=== PATIENT | male | born 1965 | race Caucasian/White ===

== ENCOUNTER 2020-11-13 09:15 | Outpatient (REF) | payer MEDICARE, MEDICAID, SELFPAY ==
[2020-11-13 11:03] LABS: MANUAL DIFF FLAG NO
[2020-11-13 11:28] LABS: Basophils Absolute Auto 0.1 X10*3/uL (0.0-0.2); Basophils Percent Auto 0.9 % (0-2); Eosinophils Absolute Auto 0.6 X10*3/uL (0.0-0.4); Eosinophils Percent Auto 6.6 % (0-4); Hematocrit 52.1 % (42-52); Hemoglobin 17.2 g/dl (14.0-18.0); Imm Gran Abs Auto 0.04 X10*3/uL (0.00-0.03); Imm Gran Pct Auto 0.5 % (0.0-0.4); Lymphocytes Absolute Auto 2.4 X10*3/uL (1.2-4.9); Lymphocytes Percent Auto 28.1 % (20-40); Mean Corpuscular Hemoglobin 30.7 pg (27.0-33.0); Mean Corpuscular Volume 92.9 fL (80-98); Mean Platelet Volume 10.4 fL (9.4-12.4); Monocytes Absolute Auto 0.9 X10*3/uL (0.1-1.2); Monocytes Percent Auto 9.9 % (2-11); Neutrophils Absolute Auto 4.6 X10*3/uL (2.0-8.3); Platelet Count 194 X10*3/uL (160-400); Red Blood Count 5.61 X10*6/uL (4.60-5.80); Red Cell Distribution Width 12.3 % (11.0-16.0); White Blood Count 8.6 X10*3/uL (4.8-10.8)
[2020-11-13 12:32] LABS: Anion Gap 17 (12-20); Blood Urea Nitrogen 13 mg/dL (9-16); Calcium 9.4 mg/dL (8.4-10.2); Carbon Dioxide 27 mmol/L (22-29); Chloride 101 mmol/L (96-108); Cholesterol 260 mg/dL; Estimated Glomerular Filt Rate > 60; Glucose Fasting 90 mg/dL (60-99); HDL Cholesterol 65 mg/dL; LDL Cholesterol Calculated 174 mg/dl; Potassium 4.2 mmol/l (3.3-5.1); Sodium 141 mmol/L (135-145); Triglycerides 106 mg/dL
== END 2020-11-13 09:16 | disposition home or self-care (01) ==
LOC: HO.HMGCLDS 09:15
PROVIDERS: PCP Internal Medicine; Visit Provider Internal Medicine
DX: E78.9 Disorder of lipoprotein metabolism, unspecified (principal); R79.89 Other specified abnormal findings of blood chemistry; K21.9 Gastro-esophageal reflux disease without esophagitis
CPT/HCPCS: 36415; 80048; 80061; 85025

== ENCOUNTER 2021-09-07 07:00 | Outpatient (REF) | payer MEDICARE, MEDICAID, SELFPAY ==
[2021-09-07 11:48] LABS: Alanine Aminotransferase 135 U/L (0-40); Albumin Level 4.3 g/dL (3.5-5.0); Alkaline Phosphatase 71 U/L (39-117); Anion Gap 15 (12-20); Aspartate Amino Transferase 108 U/L (5-37); Bilirubin Total 1.7 mg/dL (0.0-1.0); Blood Urea Nitrogen 18 mg/dL (9-16); Calcium 9.2 mg/dL (8.4-10.2); Carbon Dioxide 22 mmol/L (22-29); Chloride 99 mmol/L (96-108); Cholesterol 196 mg/dL; Estimated Glomerular Filt Rate > 60; Ethanol < 10 mg/dL; Glucose Fasting 81 mg/dL (60-99); HDL Cholesterol 49 mg/dL; LDL Cholesterol Calculated 125 mg/dl; Potassium 3.4 mmol/L (3.3-5.1); Sodium 133 mmol/L (135-145); Total Protein 7.4 g/dL (6.5-8.0); Triglycerides 110 mg/dL
[2021-09-07 11:55] LABS: Gamma Glutamyl Transpeptidase 232 U/L (11-51)
== END 2021-09-07 07:01 | disposition home or self-care (01) ==
LOC: HO.HMGCLDS 07:00
PROVIDERS: PCP Internal Medicine; Visit Provider Internal Medicine
DX: E78.9 Disorder of lipoprotein metabolism, unspecified (principal); F10.20 Alcohol dependence, uncomplicated; F33.9 Major depressive disorder, recurrent, unspecified; G47.9 Sleep disorder, unspecified; K21.9 Gastro-esophageal reflux disease without esophagitis; R79.89 Other specified abnormal findings of blood chemistry
CPT/HCPCS: 36415; 80053; 80061; 82077; 82977

== ENCOUNTER 2021-10-04 11:24 | Outpatient (REF) | payer MEDICARE, MEDICAID, SELFPAY ==
[2021-10-04 12:35] LABS: MANUAL DIFF FLAG NO
[2021-10-04 12:53] LABS: Basophils Absolute Auto 0.1 X10*3/uL (0.0-0.2); Basophils Percent Auto 0.9 % (0-2); Eosinophils Absolute Auto 0.3 X10*3/uL (0.0-0.4); Eosinophils Percent Auto 3.9 % (0-4); Hematocrit 45.9 % (42.0-52.0); Hemoglobin 15.8 g/dl (14.0-18.0); Imm Gran Abs Auto 0.02 X10*3/uL (0.00-0.03); Imm Gran Pct Auto 0.3 % (0.0-0.4); Lymphocytes Absolute Auto 1.8 X10*3/uL (1.2-4.9); Lymphocytes Percent Auto 24.7 % (20-40); Mean Corpuscular HGB Conc 34.4 g/dl (31.0-36.0); Mean Corpuscular Hemoglobin 31.1 pg (27.0-33.0); Mean Corpuscular Volume 90.4 fL (80.0-98.0); Mean Platelet Volume 10.5 fL (9.4-12.4); Monocytes Absolute Auto 1.1 X10*3/uL (0.1-1.2); Monocytes Percent Auto 14.2 % (2-11); Neutrophils Absolute Auto 4.1 x10*3/uL (2.0-8.3); Platelet Count 216 X10*3/uL (160-400); Red Blood Count 5.08 X10*6/uL (4.60-5.80); Red Cell Distribution Width 12.2 % (11.0-16.0); White Blood Count 7.4 X10*3/uL (4.8-10.8)
[2021-10-04 13:17] LABS: Alanine Aminotransferase 80 U/L (0-40); Albumin Level 4.3 g/dL (3.5-5.0); Alkaline Phosphatase 76 U/L (39-117); Anion Gap 12 (12-20); Aspartate Amino Transferase 45 U/L (5-37); Bilirubin Total 1.3 mg/dL (0.0-1.0); Blood Urea Nitrogen 5 mg/dL (9-16); Calcium 9.9 mg/dL (8.4-10.2); Carbon Dioxide 28 mmol/L (22-29); Chloride 98 mmol/L (96-108); Estimated Glomerular Filt Rate > 60; Gamma Glutamyl Transpeptidase 92 U/L (11-51); Glucose Random 93 mg/dL (60-115); Potassium 4.1 mmol/L (3.3-5.1); Sodium 134 mmol/L (135-145); Total Protein 7.3 g/dL (6.5-8.0)
[2021-10-04 14:18] LABS: Ferritin 526 ng/mL (20-250)
[2021-10-07 03:49] LABS: HBc Num1 0.13 S/CO (0.00-0.79); HBsAGNum1 0.35 S/CO (0.00-0.99); Hepatitis B Core Antibody Nonreactive (Nonreactive); Hepatitis B Surface Antigen Negative (Negative); ~Hepatitis B Surface Antibody NONREACTIVE (Nonreactive)
[2021-10-07 03:57] LABS: ~HepC Num1 0.11 S/CO (0.00-0.79); ~Hepatitis C Antibody Nonreactive (Nonreactive)
[2021-10-07 15:12] LABS: Transglutaminase Ab IgG <1.0 U/mL; Transglutaminase IgA <1.0 U/mL
[2021-10-08 12:06] LABS: Immunoglobulin G 1082 mg/dL (600-1640)
[2021-10-09 04:03] LABS: Hepatitis A Antibody IgM 0.33 Index (0-0.79); ~Hepatitis A Antibody IgM Nonreactive (Nonreactive)
== END 2021-10-04 11:25 | disposition home or self-care (01) ==
LOC: HO.LAB 11:24
PROVIDERS: PCP Internal Medicine; Referring Provider Internal Medicine; Visit Provider Internal Medicine Gastroenterology
DX: R10.33 Periumbilical pain (principal); F10.20 Alcohol dependence, uncomplicated; G89.29 Other chronic pain; K75.81 Nonalcoholic steatohepatitis (NASH); K52.839 Microscopic colitis, unspecified; E78.9 Disorder of lipoprotein metabolism, unspecified; R79.89 Other specified abnormal findings of blood chemistry
CPT/HCPCS: 36415; 80053; 82728; 82784; 82977; 83516; 85025; 86704; 86706; 86709; 86803; 87340; 99202

== ENCOUNTER 2022-03-07 13:07 | Outpatient (REF) | payer MEDICARE, MEDICAID, SELFPAY ==
[2022-03-07 14:22] LABS: Anion Gap 14 (12-20); Blood Urea Nitrogen 12 mg/dL (9-16); Calcium 9.7 mg/dL (8.4-10.2); Carbon Dioxide 27 mmol/L (22-29); Chloride 99 mmol/L (96-108); Estimated Glomerular Filt Rate > 60; Glucose Random 94 mg/dL (60-115); Potassium 3.8 mmol/L (3.3-5.1); Sodium 136 mmol/L (135-145)
[2022-03-07 17:09] LABS: Alanine Aminotransferase 38 U/L (0-40); Albumin Level 4.3 g/dL (3.5-5.0); Alkaline Phosphatase 63 U/L (39-117); Aspartate Amino Transferase 48 U/L (5-37); Bilirubin Direct 0.3 mg/dL (0.0-0.5); Bilirubin Total 0.8 mg/dL (0.0-1.0); Total Protein 7.5 g/dL (6.5-8.0)
== END 2022-03-07 13:08 | disposition home or self-care (01) ==
LOC: HO.HMGCLDS 13:07
PROVIDERS: Visit Provider Internal Medicine
DX: F10.20 Alcohol dependence, uncomplicated (principal); K21.9 Gastro-esophageal reflux disease without esophagitis; R79.89 Other specified abnormal findings of blood chemistry
CPT/HCPCS: 36415; 80048; 80076

== ENCOUNTER 2023-02-13 09:36 | Outpatient (REF) | payer OTHER, MEDICAID, SELFPAY ==
[2023-02-13 11:39] LABS: MANUAL DIFF FLAG NO
[2023-02-13 12:02] LABS: Basophils Absolute Auto 0.1 X10*3/uL (0.0-0.2); Basophils Percent Auto 0.8 % (0-2); Eosinophils Absolute Auto 0.7 X10*3/uL (0.0-0.4); Hematocrit 48.3 % (42.0-52.0); Imm Gran Abs Auto 0.01 X10*3/uL (0.00-0.03); Imm Gran Pct Auto 0.1 % (0.0-0.4); Lymphocytes Absolute Auto 2.1 X10*3/uL (1.2-4.9); Lymphocytes Percent Auto 28.3 % (20-40); Mean Corpuscular HGB Conc 33.1 g/dl (31.0-36.0); Mean Corpuscular Hemoglobin 30.4 pg (27.0-33.0); Mean Corpuscular Volume 91.7 fL (80.0-98.0); Mean Platelet Volume 10.2 fL (9.4-12.4); Monocytes Absolute Auto 0.8 X10*3/uL (0.1-1.2); Monocytes Percent Auto 10.6 % (2-11); Neutrophils Absolute Auto 3.7 x10*3/uL (2.0-8.3); Neutrophils Percent Auto 50.2 % (45-73); Platelet Count 174 X10*3/uL (160-400); Red Blood Count 5.27 X10*6/uL (4.60-5.80); Red Cell Distribution Width 12.9 % (11.0-16.0); White Blood Count 7.3 X10*3/uL (4.8-10.8)
[2023-02-13 12:30] LABS: Alanine Aminotransferase 21 U/L (0-40); Albumin Level 4.2 g/dL (3.5-5.0); Alkaline Phosphatase 63 U/L (39-117); Anion Gap 11 (12-20); Aspartate Amino Transferase 29 U/L (5-37); Blood Urea Nitrogen 12 mg/dL (9-16); Calcium 9.3 mg/dL (8.4-10.2); Carbon Dioxide 26 mmol/L (22-29); Chloride 104 mmol/L (96-108); Cholesterol 230 mg/dL; Estimated Glomerular Filt Rate > 60; Glucose Fasting 96 mg/dL (60-99); HDL Cholesterol 62 mg/dL; LDL Cholesterol Calculated 150 mg/dl; Potassium 4.2 mmol/L (3.3-5.1); Sodium 137 mmol/L (135-145); Total Protein 6.9 g/dL (6.5-8.0); Triglycerides 91 mg/dL
[2023-02-13 12:39] LABS: TSH reflex Free T4 2.31 uIU/mL (0.32-4.0); Vitamin B12 299 pg/mL (200-900)
[2023-02-19 12:39] LABS: Vitamin D 25-OH, D2 <4 ng/mL; Vitamin D 25-OH, D3 11 ng/mL; Vitamin D 25-OH, Total 11 ng/mL (30-100)
== END 2023-02-13 09:37 | disposition home or self-care (01) ==
LOC: HO.HMGCLDS 09:36
PROVIDERS: PCP Internal Medicine; Visit Provider Internal Medicine
DX: Z00.01 Encounter for general adult medical examination with abnormal findings (principal); K70.30 Alcoholic cirrhosis of liver without ascites; F33.9 Major depressive disorder, recurrent, unspecified; G47.9 Sleep disorder, unspecified; K21.9 Gastro-esophageal reflux disease without esophagitis; E78.9 Disorder of lipoprotein metabolism, unspecified; R79.89 Other specified abnormal findings of blood chemistry; F10.20 Alcohol dependence, uncomplicated
CPT/HCPCS: 36415; 80053; 80061; 82306; 82607; 84443; 85025

== ENCOUNTER 2023-05-05 00:40 | Inpatient (IN) | payer OTHER, MEDICAID, SELFPAY ==
[2023-05-05] VITALS (9 sets, daily range): BP systolic 135–160; BP diastolic 81–100; PULSE 74–124; RESP 16–26; TEMP 36.4–36.9; O2SAT 92–100; BMI 20.8
--- NOTE | ~2023-05-05 | XR_ITS ---
EXAMINATION: XR CHEST CLINICAL INFORMATION: Shortness of breath COMPARISON: 12/03/2014 TECHNIQUE: Frontal view of the chest was obtained. FINDINGS: The lungs are clear with no focal consolidation. No evidence of pneumothorax, pulmonary edema, or pleural effusions. The cardiomediastinal silhouette is unremarkable. No acute osseous findings. XR/XR chest 1V IMPRESSION: No acute cardiopulmonary findings.
--- NOTE | 2023-05-05 02:08 | ECG_ITS ---
Test Reason : SOB Blood Pressure : / mmHG Vent. Rate : 083 BPM Atrial Rate : 083 BPM P-R Int : 126 ms QRS Dur : 084 ms QT Int : 380 ms P-R-T Axes : -02 077 058 degrees QTc Int : 446 ms Normal sinus rhythm Normal ECG When compared with ECG of 25-MAY-2007 19:46, No significant change was found Referred By: Generic ED Physician Electronically Signed By:John Krishna
[2023-05-05 02:54] LABS: MANUAL DIFF FLAG NO
[2023-05-05 02:55] LABS: Basophils Absolute Auto 0.1 X10*3/uL (0.0-0.2); Basophils Percent Auto 1.4 % (0-2); Eosinophils Absolute Auto 0.7 X10*3/uL (0.0-0.4); Eosinophils Percent Auto 8.1 % (0-4); Hematocrit 50.8 % (42.0-52.0); Hemoglobin 17.2 g/dl (14.0-18.0); Imm Gran Abs Auto 0.01 X10*3/uL (0.00-0.03); Imm Gran Pct Auto 0.1 % (0.0-0.4); Lymphocytes Absolute Auto 2.1 X10*3/uL (1.2-4.9); Lymphocytes Percent Auto 23.6 % (20-40); Mean Corpuscular HGB Conc 33.9 g/dl (31.0-36.0); Mean Corpuscular Hemoglobin 30.3 pg (27.0-33.0); Mean Corpuscular Volume 89.4 fL (80.0-98.0); Mean Platelet Volume 9.7 fL (9.4-12.4); Monocytes Absolute Auto 0.7 X10*3/uL (0.1-1.2); Monocytes Percent Auto 7.8 % (2-11); Neutrophils Absolute Auto 5.2 x10*3/uL (2.0-8.3); Platelet Count 198 X10*3/uL (160-400); Red Blood Count 5.68 X10*6/uL (4.60-5.80); Red Cell Distribution Width 12.4 % (11.0-16.0); White Blood Count 8.9 X10*3/uL (4.8-10.8)
[2023-05-05 03:14] LABS: Alanine Aminotransferase 20 U/L (0-40); Albumin Level 4.4 g/dL (3.5-5.0); Alkaline Phosphatase 58 U/L (39-117); Anion Gap 15 (12-20); Aspartate Amino Transferase 24 U/L (5-37); Bilirubin Total 0.4 mg/dL (0.0-1.0); Blood Urea Nitrogen 7 mg/dL (9-16); Calcium 9.7 mg/dL (8.4-10.2); Carbon Dioxide 24 mmol/L (22-29); Chloride 107 mmol/L (96-108); Creatinine Clr Calc Pharmacy 76.1; Estimated Glomerular Filt Rate > 60; Glucose Random 82 mg/dL (60-115); Potassium 4.4 mmol/L (3.3-5.1); Sodium 142 mmol/L (135-145); Total Protein 7.6 g/dL (6.5-8.0)
--- NOTE | 2023-05-05 04:33 | ED.SOB ---
HPI - SOB/Dyspnea General Chief Complaint: Dyspnea Stated Complaint: shortness of breath Time Seen by Provider: 05/05/23 04:31 Source: patient Mode of arrival: EMS Limitations: no limitations History of Present Illness HPI Narrative: 3 weeks he has been short of breath now with increasing shortness of breath MD elicited complaint: shortness of breath and cough Pertinent past history: COPD Onset (ago): week(s) Timing: constant Severity: moderate Known history of: COPD Related Data Previous Rx's Medication Instructions Recorded albuterol sulfate 90 mcg/actuation 1 inh inhalation QID PRN shortness 02/04/23 aerosol inhaler (Ventolin HFA) of breath or wheezing #8.5 grams omeprazole 20 mg capsule,delayed 20 mg PO BID 90 days #180 caps 02/04/23 release prednisone 20 mg tablet 60 mg PO DAILY #12 tabs 05/05/23 Allergies Allergy/AdvReac Type Severity Reaction Status Date / Time bee pollen [BEE STINGS] Allergy Unknown HIVES Verified 05/05/23 00:50 Review of Systems Review of Systems: Yes all other systems are reviewed and are negative Cardiovascular: Cardiovascular: Reports dyspnea Respiratory: Respiratory: Reports dyspnea Neurologic: Denies Sensory deficit (Neuro) [facility] Past Medical History Medical History Alcoholism Chronic GERD Depression, major, recurrent Difficulty sleeping LFT elevation Lipid disorder Surgical History History of esophagogastroduodenoscopy (EGD) Hx of colonoscopy No pertinent past surgical history Family History Family History Father No problems noted. Mother No problems noted. Social History Social History Housing: Apartment Patient Tobacco Use Status: Current everyday Tobacco user Cigarette Packs Per Day: 2 e-Cigarette/Vaping Use: Never Used Advance Directives: No Advance Directives Information Provided: Yes service: No Current occupational status: retired Cognitive needs: No Hearing needs: No Vision needs: Yes Physical Exam Vital Signs: Vital Signs: Last Vital Signs Temp 98.4 F 05/05/23 04:15 Pulse 86 05/05/23 04:57 Resp 21 H 05/05/23 04:57 BP 135/92 H 05/05/23 04:15 Pulse Ox 95 05/05/23 04:15 O2 Del Method Room Air 05/05/23 04:15 BMI result Body Mass Index 20.8 Const: Other: Thin male anxious Nutritional Appearance: average body habitus Orientation/consciousness: oriented to person and patient oriented x3 Limitations: no limitations HEENT: Head: Yes normal to inspection Ears: external ears normal General nose exam: Normal external nose present Mouth: Normal oral and palatal mucosa present and oropharynx normal Throat: Yes posterior oropharynx normal Eyes: General: appearance normal, both eyes and all related structures Neck: Other: supple Neck: Yes normal visual inspection Chest: Chest palpation & inspection: normal inspection of the chest Resp: Other: diffuse wheezing Cardio: Jugular venous distension: no JVD Rate: regular rate Rhythm: regular rhythm Heart sounds: S1 normal heart sound present and S2 normal heart sound present GI: Inspection: Yes normal to inspection Palpation (GI): Soft to palpation, nontender and No hepatosplenomegaly present Auscultation: normal bowel sounds : General: Yes no CVA tenderness Back/Spine/Pelvis: Back: no CVA tenderness Skin: General skin exam: no rashes or lesions noted Neuro: General: oriented to person and patient oriented x3 Cranial nerves: Yes CN's II-XII intact bilaterally Motor exam (neuro): 5/5 motor strength present throughout Sensory Exam: No Sensory deficit (Neuro) Extrem: General: Yes normal to inspection Psych: Appearance: grossly normal Course Reevaluation(s) Reevaluation #1: patient still wheezing will place in physician observation. Physician observation started at 7:30 the patient needed more time to see if his COPD improves or he will need to be admitted, currently still wheezing Time: 07:36 Medications Administered Discontinued Medications Generic Name Dose Route Start Last Admin Trade Name Freq PRN Reason Stop Dose Admin Albuterol/Ipratropium 3 ml 05/05/23 04:33 05/05/23 04:57 Albuterol/Iprat 2.5/0.5mg 3 Ml Ampul.Neb INHALE 05/05/23 04:34 3 ml ONCE ONE Administration Prednisone 60 mg 05/05/23 04:33 05/05/23 04:49 Prednisone 20 Mg Tablet PO 05/05/23 04:34 60 mg ONCE ONE Administration Medical Decision Making Differential Diagnosis Differential Diagnoses: The differential diagnosis associated with the presentation includes (COPD exacerbation, pneumonia, bronchitis, URI were all considered) Admission/Observation Consideration of admission/observation: Escalation of care including admission/observation considered Lab Data MDM Lab Attestation statement: I reviewed the patient's lab results. (normal WBC, normal chemistries) 05/05/23 02:50 05/05/23 02:50 Labs: Lab Results 05/05/23 05/05/23 Range/Units 02:50 02:50 WBC 8.9 (4.8-10.8) X10*3/uL RBC 5.68 (4.60-5.80) X10*6/uL Hgb 17.2 (14.0-18.0) g/dl Hct 50.8 (42.0-52.0) % MCV 89.4 (80.0-98.0) fL MCH 30.3 (27.0-33.0) pg MCHC 33.9 (31.0-36.0) g/dl RDW 12.4 (11.0-16.0) % Plt Count 198 (160-400) X10*3/uL MPV 9.7 (9.4-12.4) fL Immature Gran % (Auto) 0.1 (0.0-0.4) % Neut % (Auto) 59.0 (45-73) % Lymph % (Auto) 23.6 (20-40) % Lipscomb % (Auto) 7.8 (2-11) % Eos % (Auto) 8.1 H (0-4) % Baso % (Auto) 1.4 (0-2) % Lymph # (Auto) 2.1 (1.2-4.9) X10*3/uL Lipscomb # (Auto) 0.7 (0.1-1.2) X10*3/uL Eos # (Auto) 0.7 H (0.0-0.4) X10*3/uL Baso # (Auto) 0.1 (0.0-0.2) X10*3/uL Abs Immat Gran (auto) 0.01 (0.00-0.03) X10*3/uL Absolute Neuts (auto) 5.2 (2.0-8.3) x10*3/uL Absolute Nucleated RBC 0.000 (0.0-0.012) X10*3/uL Nucleated RBC % (auto) 0.0 (0.0-0.2) /100WBC Sodium 142 (135-145) mmol/L Potassium 4.4 (3.3-5.1) mmol/L Chloride 107 (96-108) mmol/L Carbon Dioxide 24 (22-29) mmol/L Anion Gap 15 (12-20) BUN 7 L (9-16) mg/dL Creatinine 0.96 (0.5-1.4) mg/dL Estim Creat Clear Calc 76.1 Estimated GFR > 60 Random Glucose 82 (60-115) mg/dL Calcium 9.7 (8.4-10.2) mg/dL Total Bilirubin 0.4 (0.0-1.0) mg/dL AST 24 (5-37) U/L ALT 20 (0-40) U/L Alkaline Phosphatase 58 (39-117) U/L Total Protein 7.6 (6.5-8.0) g/dL Albumin 4.4 (3.5-5.0) g/dL Independent Interpretation I performed an independent interpretation of an: Plain X-Ray (CXR: non infiltrate) External Record Review External record reviewed: Outpatient record Prescription Management I considered prescription management with: Antibiotic (I considered an atibiotic but his WBC is normal, afebrile and his CXR shows no infiltrate) Chronic Conditions Patient?s care impacted by: Other (COPD) Discharge Plan Discharge Clinical Impression: Acute exacerbation of chronic obstructive airways disease Patient Disposition: Still a Patient Prescriptions: New prednisone 20 mg tablet 60 mg PO DAILY Qty: 12 0RF No Action omeprazole 20 mg capsule,delayed release(DR/EC) 20 mg PO BID 90 Days Qty: 180 1RF albuterol sulfate [Ventolin HFA] 90 mcg/actuation HFA aerosol inhaler 1 inh inhalation QID PRN (Reason: shortness of breath or wheezing) Qty: 8.5 1RF
[2023-05-05] MEDS: predniSONE 20 MG TABLET 60 MG PO (04:49)
[2023-05-05] MEDS: Albuterol/Iprat 2.5/0.5MG 3 ML AMPUL.NEB INHALE ×2 (04:57→20:10)
[2023-05-05] MEDS: Albuterol Sulfate 5 MG, Albuterol Sulfate (0.083%) 2.5 MG 7.5 MG INHALE (07:44)
--- NOTE | 2023-05-05 09:05 | PC.NURSE ---
tolerating water po without issue.
[2023-05-05] MEDS: Albuterol Sulfate 5 MG, Albuterol/Iprat 2.5/0.5MG 3 ML 3 ML INHALE (10:17)
[2023-05-05] MEDS: Magnesium Sulfate/H2O 2 GM/50 ML PIGGYBACK IV (10:54)
[2023-05-05] MEDS: 0.9 % Sodium Chloride 1,000 ML 999 ML IV (13:38)
--- NOTE | 2023-05-05 15:45 | PM.IMHP ---
History of Present Illness Date of Service: 05/05/23 Attending physician on admission: Abdiel Moffett Chief Complaint: sob 58 year old male with history COPD, alcoholic cirrhosis, alcohol dependence, GERD, depression presented to the the ED earlier this morning for evaluation of progressively worsening dyspnea on exertion, dyspnea with speaking, lightheadedness, and wheezing over the last 2 months. He has now developed a productive cough with dark yellow/black sputum production. He does not use any maintenance inhalers for COPD but reports frequent use of his albuterol with some relief of symptoms. He states he had quit smoking for a period but is now smoking 3 packs of cigarettes daily when he is drinking alcohol. He states he had also quit alcohol for a period of days but resumed last week. He is consuming 624 oz cans of beer on a daily basis and last drink was consumed around 17:00 last night. He denies any history of alcohol withdrawal seizure. He denies any fevers, chills, congestion, sore throat, abdominal pain, nausea, vomiting, diarrhea, palpitations, orthopnea, PND, or chest pain. No known sick contacts. On arrival, vitals stable however throughout the day became progressively tachypneic and developed tachycardia to 124. He is afebrile and there is no hypoxia. There is no leukocytosis. Renal function normal, electrolyte levels normal, LFTs normal. CXR without any acute cardiopulmonary findings. In the ED, received 60 mg prednisone, 1 g IV Rocephin, 1 L NS, 2 g IV magnesium, albuterol, and DuoNebs. Unfortunately, patient was being observed and appear to have been improving but when ambulating became significantly dyspneic with accessory muscle usage. On exam, patient is also notably tremulous with very slight diaphoresis and anxiety consistent with acute alcohol withdrawal. Patient will be admitted for further management of acute COPD exacerbation with acute alcohol withdrawal. Review of Systems Review of Systems: General: No fevers, malaise, unintentional weight loss HEENT: No sore throat, nasal congestion, rhinorrhea, sinus pain, ear pain Cardiovascular: No chest pain, palpitations, or leg edema Respiratory: +sob, +wheezing, +cough GI: No abdominal pain, nausea, vomiting, diarrhea, constipation, melena, hematochezia : No dysuria, hematuria, increased urinary frequency, decreased urinary output MSK: No myalgia, back pain Neuro: No headaches, weakness, paresthesias. Skin: No rashes or lesions [facility] Medical History Alcoholism Chronic GERD Depression, major, recurrent Difficulty sleeping LFT elevation Lipid disorder Family History Father No problems noted. Mother No problems noted. Surgical History History of esophagogastroduodenoscopy (EGD) Hx of colonoscopy No pertinent past surgical history Social History Household Members: None Housing: Apartment Do you presently have visiting nurse or other home services: No Alcohol intake: never Patient Tobacco Use Status: Tobacco use Unknown Cigarette Packs Per Day: 2 Smoked in Last 30 Days: Yes e-Cigarette/Vaping Use: Never Used Use of substances other than those prescribed or required for medical reasons: No Currently Displaying Signs/Symptoms of Drug Intoxication Withdrawal: No Have you been hit, kicked, punched, or otherwise hurt by someone within the past year? If so, by whom?: No Do you feel safe in your current relationship?: No Current Relationship Is there a partner from a previous relationship who is making you feel unsafe now?: No Are you made to feel afraid or neglected: No Advance Directives: No Advance Directives Information Provided: Yes Do you have thoughts of harming others: None Do you have a plan to hurt others: No Plan Recently lost weight without trying: Unsure Eating poorly because of decreased appetite: No Nutrition Risks: No Nutritional Risk Poor oral hygiene: No service: No Current occupational status: retired Cognitive needs: No Hearing needs: No Vision needs: Yes Meds Allergies Allergy/AdvReac Type Severity Reaction Status Date / Time bee pollen [BEE STINGS] Allergy Unknown HIVES Verified 05/05/23 00:50 Active Medications: Current Medications Azithromycin 500 mg/ Sodium (Chloride) 250 mls @ 125 mls/hr IV ONCE ONE Stop: 05/05/23 17:10 Home Medications Medication Instructions Recorded Confirmed Last Taken Type omeprazole 20 mg capsule,delayed 20 mg PO BID@0630,1630 05/05/23 05/05/2305/04/23 History release Physical Exam Vital Signs and Narrative: Vital Signs: Last Vital Signs Temp 98.4 F 05/05/23 04:15 Pulse 124 H 05/05/23 10:18 Resp 18 05/05/23 10:18 BP 135/92 H 05/05/23 04:15 Pulse Ox 95 05/05/23 04:15 O2 Del Method Room Air 05/05/23 04:15 BMI result Body Mass Index 20.8 Constitutional - Awake and Alert, No apparent distress Eyes - PERRLA, EOMI Cardiovascular - S1S2, RRR, No edema Respiratory - Normal lung expansion, increased WOB when speaking, no orthopnea, somewhat coarse lung sounds with diffuse expiratory wheezes, diminished at the bases Gastrointestinal - NT / ND; +BS; No rebound or guarding Extremities - no calf tenderness bilaterally, no swelling Skin - Warm/Dry Neurological - Alert & oriented x3 Psychological - Appropriate affect Results Labs 05/05/23 02:50 05/05/23 02:50 Labs: Laboratory Results - last 24 hr 05/05/23 05/05/23 02:50 02:50 MCV 89.4 MCH 30.3 MCHC 33.9 RDW 12.4 Plt Count 198 MPV 9.7 Immature Gran % (Auto) 0.1 Neut % (Auto) 59.0 Lymph % (Auto) 23.6 Donley % (Auto) 7.8 Eos % (Auto) 8.1 H Baso % (Auto) 1.4 Lymph # (Auto) 2.1 Donley # (Auto) 0.7 Eos # (Auto) 0.7 H Baso # (Auto) 0.1 Abs Immat Gran (auto) 0.01 Absolute Neuts (auto) 5.2 Absolute Nucleated RBC 0.000 Nucleated RBC % (auto) 0.0 Anion Gap 15 Estim Creat Clear Calc 76.1 Estimated GFR > 60 Random Glucose 82 Calcium 9.7 Total Bilirubin 0.4 AST 24 ALT 20 Alkaline Phosphatase 58 Total Protein 7.6 Albumin 4.4 Imaging Radiologist's Impressions: Impressions Chest X-Ray 05/05/23 02:17 IMPRESSION: No acute cardiopulmonary findings. Assessment and Plan (1) Alcohol withdrawal: Status: Acute (2) Acute exacerbation of chronic obstructive airways disease: Status: Acute Plan 58 year old male with history COPD, alcoholic cirrhosis, alcohol dependence, GERD, depression admitted for acute COPD excaberbation and will require management of acute alcohol withdrawal. #Acute COPD exacerbation -No leukocytosis, tachypneix to 30. tachycardia r/t etoh w/d and albuterol use not COPD exacerbation. No sepsis -CXR negative for pneumonia -Unlikely viral etiology given duration of symtpoms -IV methrylprednisolone 40mg TID -Duonebs q4h while awake -Albuterol prn -IV azithromycin x 3 days -Will need maintenance inhaler on d/c #Acute alcohol withdrawal -CIWA 12 on my exam -Initiate phenobarb per protocol -Monitor on CIWA -IV thiamine x 3 days, then PO -Folic acid daily -Addiction medicine consult #Alcoholic cirrhosis -compensated -LFTs wnl #GERD -continue ppi #Nicotine dependence -declines NRT -Smoking cessation counseling provided DVT prophylaxis- lovenox Full code Pt requires inpt stay at least 2 midnights for management of COPD exacerbation with increased WOB requiring IV steroids, scheduled nebs, and will also require management of acute alcohol withdrawal with phenobarb per protocol while admitted. Time Spent With Patient Time: Total time managing care of this patient today ____ minutes. Quality Stroke Does the patient have a stroke diagnosis?: No VTE Prior VTE?: No VTE Risk Level:: Medical - moderate - high VTE Device Contraindication: Treatment Not Indicated VTE Drug Contraindication: N/A - Med Ordered
[2023-05-05] MEDS: cefTRIAXone sodium 1 GM in 0.9 % Sodium Chloride 50 ML IV (16:09)
--- NOTE | 2023-05-05 16:09 | PM.EVENT ---
Event Note Date of Service: 05/05/23 Event Note: Addendum to history and physical by the advanced practice provider, POLO Cody I interviewed and examined the patient. I discussed their presentation and management with the STEPH. I reviewed the history and physical and agree with the documentation, with the following additions and corrections: 58yo M with COPD, EtOH cirrhosis, AUD, GERD, depression presenting with worsening dyspnea + wheezing with cough productive of dark sputum, using albuterol frequently. Consumes 6 x 24 oz beer daily, last 17:00 1d prior to presentation Found to have resp distress and tremor concernig for COPD exacerbation + impending EtOH withdrawal with CIWA 21 Plan admit to IMC< give steroids/nebs/azithromycin, and phenobarbital taper for EtOH withdrawal Smoking cessation Addiction medicine consultation Time Spent With Patient Time: Total time managing care of this patient today ____ minutes.
[2023-05-05] MEDS: Azithromycin 500 MG in 0.9 % Sodium Chloride 250 ML 125 MG IV (16:29)
[2023-05-05 16:57] LABS: Anion Gap 18 (12-20); Blood Urea Nitrogen 14 mg/dL (9-16); Carbon Dioxide 19 mmol/L (22-29); Chloride 107 mmol/L (96-108); Creatinine Clr Calc Pharmacy 69.5; Estimated Glomerular Filt Rate > 60; Glucose Random 144 mg/dL (60-115); Potassium 4.2 mmol/L (3.3-5.1); Sodium 140 mmol/L (135-145)
[2023-05-05 17:02] LABS: B Type Natriuretic Peptide < 10 pg/mL (<100)
--- NOTE | 2023-05-05 17:08 | PHA.MEDREC ---
Pharmacy Consult ? Medication Reconciliation Pharmacy has completed the medication reconciliation. Spoke to patient to confirm meds.
--- NOTE | 2023-05-05 17:14 | PC.NURSE ---
noticeable tremor when placing IV line - asked about alcohol use. pt unclear about how much he drinks but does admit to drinking daily. Deb CUELLAR down to see pt. CIWAs and phenobarbital ordered.
[2023-05-05] MEDS: PHENobarbitaL sodium 130 MG/ML IM ONCE 260 MG IM (18:12)
[2023-05-05] MEDS: Enoxaparin Sodium 40 MG/0.4 ML SYRINGE SUBCUT (18:12)
[2023-05-05] MEDS: methylPREDNISolone Sod Succ 40 MG/ML VIAL IVPUSH (18:12)
[2023-05-05] MEDS: Thiamine HCL 100 MG in 0.9 % Sodium Chloride 100 ML 202 MG IV (18:13)
[2023-05-05] MEDS: Folic Acid 1 MG TABLET PO (18:15)
--- NOTE | 2023-05-05 20:04 | PC.NURSE ---
Assumed care of pt. pt sittin upright on stretcher, noted tremors to bilat hands. CIWA assessed. Pt with no complaints at this time. Bilat upper wheezes noted. pending scheduled breathing treatment and continued C IWA protocols.
[2023-05-05] MEDS: PHENobarbitaL sodium 130 MG/ML VIAL IM Q3Hx2 195 MG IM (21:20)
[2023-05-06] MEDS: 0.9 % Sodium Chloride Flush 3 ML SYRINGE IVFLUSH ×4 (00:57→20:21)
[2023-05-06] MEDS: PHENobarbitaL sodium 130 MG/ML VIAL IM Q3Hx2 195 MG IM (00:57)
[2023-05-06] MEDS: methylPREDNISolone Sod Succ 40 MG/ML VIAL IVPUSH ×3 (00:58→16:42)
[2023-05-06 03:12] VITALS: BP 142/84; PULSE 103; RESP 18; TEMP 36.4; O2SAT 94
[2023-05-06 06:23] LABS: Basophils Percent Auto 0.1 % (0-2); Hemoglobin 16.1 g/dl (14.0-18.0); Imm Gran Abs Auto 0.14 X10*3/uL (0.00-0.03); Imm Gran Pct Auto 0.7 % (0.0-0.4); Lymphocytes Absolute Auto 0.9 X10*3/uL (1.2-4.9); Lymphocytes Percent Auto 4.7 % (20-40); MANUAL DIFF FLAG SCAN; Mean Corpuscular HGB Conc 33.5 g/dl (31.0-36.0); Mean Corpuscular Hemoglobin 29.9 pg (27.0-33.0); Mean Corpuscular Volume 89.2 fL (80.0-98.0); Mean Platelet Volume 9.8 fL (9.4-12.4); Monocytes Absolute Auto 0.7 X10*3/uL (0.1-1.2); Monocytes Percent Auto 3.6 % (2-11); Neutrophils Absolute Auto 17.9 x10*3/uL (2.0-8.3); Neutrophils Percent Auto 90.9 % (45-73); Platelet Count 190 X10*3/uL (160-400); Red Blood Count 5.38 X10*6/uL (4.60-5.80); Red Cell Distribution Width 12.8 % (11.0-16.0); SCAN SMEAR FLAG 1; White Blood Count 19.7 X10*3/uL (4.8-10.8)
[2023-05-06 06:40] LABS: Anion Gap 13 (12-20); Blood Urea Nitrogen 11 mg/dL (9-16); Calcium 9.9 mg/dL (8.4-10.2); Carbon Dioxide 24 mmol/L (22-29); Chloride 104 mmol/L (96-108); Creatinine Clr Calc Pharmacy 93.6; Estimated Glomerular Filt Rate > 60; Glucose Random 132 mg/dL (60-115); Potassium 4.2 mmol/L (3.3-5.1); Sodium 137 mmol/L (135-145)
[2023-05-06] MEDS: Albuterol/Iprat 2.5/0.5MG 3 ML AMPUL.NEB INHALE ×3 (07:40→19:07)
[2023-05-06 07:42] VITALS: PULSE 100; RESP 16; O2SAT 95
[2023-05-06 08:00] VITALS: BP 166/86; PULSE 102; RESP 20; TEMP 36.5; O2SAT 94
[2023-05-06 08:15] LABS: SLIDE REVIEW VERIFIED
[2023-05-06] MEDS: PHENobarbitaL 15 MG TABLET 45 MG PO ×2 (08:33→20:18)
[2023-05-06] MEDS: Folic Acid 1 MG TABLET PO (08:34)
[2023-05-06] MEDS: Thiamine HCL 100 MG in 0.9 % Sodium Chloride 100 ML 202 MG IV (08:34)
--- NOTE | 2023-05-06 09:54 | MHC.CM.PN ---
IMM 05/06/23 DELIVERED TO BEDSIDE, EMR REVIEWED, PT ADMITTED W/COPD EXAC AND ETOH WITHDRAWAL, CM MET W/PT WHO REPORTS HE LIVES W/HIS CAT, IS INDEP W/ALL CARE, DENIES USE OF DME/SERVICES, ADDICTION MEDICINE CONSULT IN AND WHEN DISCUSSED W/PT HE REPORTS HE WOULD LIKE INFORMATION ON ETOH TX BUT DOES NOT WANT TO GO INPT. PT VERIFIES PCP IS JEANETH OTTO, ELVINID VACC X4 AND WILL CONSIDER COMPLETING A HCP HOWEVER WOULD LIKE TO CALL HIS NIECES TO MAKE SURE IT IS OKAY FIRST. ANTIC D/C HOME SELF CARE W/RECOVERY RESOURCES, PT MAY NEED [facility] SHUTTLE.
--- NOTE | 2023-05-06 10:43 | P.PNIM_ITS ---
Subjective Subjective Date of Service: 05/06/23 Interval History: breathing improved less tremulous Review of Systems Review of Systems: Yes all other systems are reviewed and are negative Physical Exam Vital Signs: Vital Signs: Last Vital Signs Temp 97.7 F 05/06/23 08:00 Pulse 102 H 05/06/23 08:00 Resp 20 05/06/23 08:00 BP 166/86 H 05/06/23 08:00 Pulse Ox 94 05/06/23 08:00 O2 Del Method Room Air 05/06/23 08:00 BMI result Body Mass Index 20.8 Gen: mildly tremulous HEENT: sclera anicteric, moist mucus membranes Neck: supple Lungs: diminished Heart: regular rate and rhythm, no murmurs Abd: soft, non-tender, non-distended Ext: no edema Skin: warm/well-perfused Neuro: alert and oriented x3, no focal findings Psych: appropriate affect Objective Data Active Medications Acetaminophen (Acetaminophen 325 Mg Tablet) 650 mg PO Q6H PRN PRN Reason: Pain, Mild (Pain Scale 1-3) Albuterol Sulfate (Albuterol Sulfate (0.083%) 2.5 Mg/3 Ml Vial.Neb) 2.5 mg INHALE Q2H PRN PRN Reason: Shortness of Breath/Wheezing Albuterol/Ipratropium (Albuterol/Iprat 2.5/0.5mg 3 Ml Ampul.Neb) 3 ml INHALE RQ4H WHILE AWAKE [facility] Last Admin: 05/06/23 07:40 Dose: 3 ml Documented By: MAGALIS Docusate Sodium (Docusate Sodium 100 Mg Capsule) 100 mg PO DAILY PRN PRN Reason: Constipation Enoxaparin Sodium (Enoxaparin Sodium 40 Mg/0.4 Ml Syringe) 40 mg SUBCUT Q24H [facility] Last Admin: 05/05/23 18:12 Dose: 40 mg Documented By: MAURA Folic Acid (Folic Acid 1 Mg Tablet) 1 mg PO DAILY [facility] Last Admin: 05/06/23 08:34 Dose: 1 mg Documented By: FERNANDO Azithromycin 500 mg/ Sodium (Chloride) 250 mls @ 125 mls/hr IV Q24H [place] Stop: 05/07/23 17:59 Thiamine HCl 100 mg/ Sodium (Chloride) 101 mls @ 202 mls/hr IV DAILY [facility] Last Infusion: 05/06/23 09:52 Dose: 0 mls/hr Documented By: FERNANDO Methylprednisolone Sodium Succinate (Methylprednisolone Sod Succ 40 Mg/Ml Vial) 40 mg IVPUSH Q8H [facility] Last Admin: 05/06/23 08:34 Dose: 40 mg Documented By: FERNANDO Omeprazole (Omeprazole 20 Mg Capsule.Dr) 20 mg PO BID@0630,1630 [facility] Ondansetron HCl (Ondansetron Hcl 4 Mg/2 Ml Vial) 4 mg IVPUSH Q8H PRN PRN Reason: Nausea and Vomiting Pharmacy Consult (Consult Rx Etoh Phenob Po Only) 1 each MISCELLANE ONCE PRN; Protocol PRN Reason: Consult order Phenobarbital (Phenobarbital 15 Mg Tablet) 45 mg PO BID [facility] Stop: 05/07/23 21:01 Last Admin: 05/06/23 08:33 Dose: 45 mg Documented By: FERNANDO Phenobarbital (Phenobarbital 30 Mg Tablet) 30 mg PO BID [facility] Stop: 05/09/23 21:01 Phenobarbital (Phenobarbital 15 Mg Tablet) 15 mg PO DAILY [facility] Stop: 05/11/23 09:01 Sodium Chloride (0.9 % Sodium Chloride Flush 3 Ml Syringe) 3 ml IVFLUSH QSHIFT [facility] Last Admin: 05/06/23 00:57 Dose: 3 ml Documented By: ANTOIC Labs 05/06/23 06:13 05/06/23 06:13 Labs: Laboratory Results - last 24 hr 05/05/23 05/05/23 05/06/23 16:32 16:32 06:13 MCV 89.2 MCH 29.9 MCHC 33.5 RDW 12.8 Plt Count 190 MPV 9.8 Immature Gran % (Auto) 0.7 H Neut % (Auto) 90.9 H Lymph % (Auto) 4.7 L Elliott % (Auto) 3.6 Eos % (Auto) 0.0 Baso % (Auto) 0.1 Lymph # (Auto) 0.9 L Elliott # (Auto) 0.7 Eos # (Auto) 0.0 Baso # (Auto) 0.0 Abs Immat Gran (auto) 0.14 H Absolute Neuts (auto) 17.9 H Absolute Nucleated RBC 0.000 Nucleated RBC % (auto) 0.0 Smear Tech's Comments VERIFIED Anion Gap 18 Estim Creat Clear Calc 69.5 Estimated GFR > 60 Random Glucose 144 H Calcium 10.0 B-Natriuretic Peptide < 10 05/06/23 06:13 MCV MCH MCHC RDW Plt Count MPV Immature Gran % (Auto) Neut % (Auto) Lymph % (Auto) Elliott % (Auto) Eos % (Auto) Baso % (Auto) Lymph # (Auto) Elliott # (Auto) Eos # (Auto) Baso # (Auto) Abs Immat Gran (auto) Absolute Neuts (auto) Absolute Nucleated RBC Nucleated RBC % (auto) Smear Tech's Comments Anion Gap 13 Estim Creat Clear Calc 93.6 Estimated GFR > 60 Random Glucose 132 H Calcium 9.9 B-Natriuretic Peptide Assessment and Plan (1) Acute exacerbation of chronic obstructive airways disease: Status: Acute (2) Alcohol withdrawal: Status: Acute Plan d2 58yo M with COPD, EtOH cirrhosis, AUD, GERD, depression admitted for COPD exac + EtOH withdrawal COPD exac - continue IV steroids, azithromycin, nebs - maintenance inhaler upon discharge - declines NRT, counseled smoking cessation EtOH withdrawal - phenobarbital taper, thiamine, folate, Addiction Medicine consultation compensated EtOH cirrhosis - LFTs WNL GERD - PPI VTE ppx - LMWH dispo - eventual home In my clinical judgment, the patient requires continued inpatient hospitalization for the following reasons: EtOH withdrawal Time Spent With Patient Time: Total time managing care of this patient today ___35_ minutes. Quality Stroke Does the patient have a stroke diagnosis?: No VTE Prior VTE?: No VTE Risk Level:: Medical - moderate - high VTE Device Contraindication: Treatment Not Indicated VTE Drug Contraindication: N/A - Med Ordered
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
[2023-05-06 15:25] VITALS: BP 136/85; PULSE 116; RESP 18; TEMP 36.1; O2SAT 93
[2023-05-06 15:26] VITALS: PULSE 118; RESP 16; O2SAT 94
[2023-05-06] MEDS: Omeprazole 20 MG CAPSULE.DR PO (16:42)
[2023-05-06] MEDS: Azithromycin 500 MG in 0.9 % Sodium Chloride 250 ML 125 MG IV (16:42)
[2023-05-06] MEDS: Enoxaparin Sodium 40 MG/0.4 ML SYRINGE SUBCUT (17:51)
[2023-05-06 19:08] VITALS: PULSE 118; RESP 16; O2SAT 96
[2023-05-07] VITALS (7 sets, daily range): BP systolic 130–157; BP diastolic 77–89; PULSE 80–104; RESP 16–20; TEMP 36.3–36.9; O2SAT 94–96
[2023-05-07] MEDS: methylPREDNISolone Sod Succ 40 MG/ML VIAL IVPUSH ×3 (00:11→20:31)
[2023-05-07] MEDS: Omeprazole 20 MG CAPSULE.DR PO ×2 (05:32→16:24)
[2023-05-07 06:40] LABS: Anion Gap 12 (12-20); Blood Urea Nitrogen 13 mg/dL (9-16); Calcium 9.8 mg/dL (8.4-10.2); Carbon Dioxide 26 mmol/L (22-29); Chloride 102 mmol/L (96-108); Creatinine Clr Calc Pharmacy 90.2; Estimated Glomerular Filt Rate > 60; Glucose Random 126 mg/dL (60-115); Magnesium 2.2 mg/dL (1.6-2.6); Potassium 4.3 mmol/L (3.3-5.1); Sodium 136 mmol/L (135-145)
[2023-05-07 06:46] LABS: INTERNATIONAL NORM RATIO 0.9 (0.9-1.1); Prothrombin Time 10.4 SEC (10.0-13.1)
[2023-05-07] MEDS: Albuterol/Iprat 2.5/0.5MG 3 ML AMPUL.NEB INHALE ×3 (08:11→18:52)
[2023-05-07] MEDS: PHENobarbitaL 15 MG TABLET 45 MG PO ×2 (09:21→20:32)
[2023-05-07] MEDS: Thiamine HCL 100 MG in 0.9 % Sodium Chloride 100 ML 202 MG IV (09:21)
[2023-05-07] MEDS: Folic Acid 1 MG TABLET PO (09:21)
[2023-05-07] MEDS: Acetaminophen 325 MG TABLET 650 MG PO (13:01)
--- NOTE | 2023-05-07 13:12 | P.PNIM_ITS ---
Subjective Subjective Date of Service: 05/07/23 Interval History: Requesting for inpatient colonoscopy since he is scheduled for outpatient, otherwise feels better no shortness of breath, no tremors, no nausea no vomiting no diarrhea no overnight events being followed for COPD exacerbation and alcohol withdrawal, smokes 3 pack per day when he drinks alcohol and the days he does not drink alcohol he smokes 1 and half pack refusing nicotine patch. Review of Systems All other system reviewed and negative. Physical Exam Vital Signs: Vital Signs: Last Vital Signs Temp 98.1 F 05/07/23 07:30 Pulse 80 05/07/23 11:55 Resp 16 05/07/23 11:55 BP 148/78 H 05/07/23 07:30 Pulse Ox 95 05/07/23 07:30 O2 Del Method Room Air 05/07/23 07:30 BMI result Body Mass Index 20.8 Const: Other: Gen: mild tremors HEENT: sclera anicteric, moist mucus membranes Neck: supple Lungs: diminished breath sound, no wheeze, no rhonchi Heart: regular rate and rhythm, no murmurs Abd: soft, non-tender, non-distended, bowel sounds audible Ext: no edema Skin: warm/well-perfused Neuro: alert and oriented x3, no focal findings Psych: appropriate affect Objective Data Active Medications Acetaminophen (Acetaminophen 325 Mg Tablet) 650 mg PO Q6H PRN PRN Reason: Pain, Mild (Pain Scale 1-3) Last Admin: 05/07/23 13:01 Dose: 650 mg Documented By: JUNAID Al Hydroxide/Mg Hydroxide (Magnesium Hydrox/Alum Hydrox 30 Ml Oral.Susp) 30 ml PO Q4H PRN PRN Reason: heartburn Albuterol Sulfate (Albuterol Sulfate (0.083%) 2.5 Mg/3 Ml Vial.Neb) 2.5 mg INHALE Q2H PRN PRN Reason: Shortness of Breath/Wheezing Albuterol/Ipratropium (Albuterol/Iprat 2.5/0.5mg 3 Ml Ampul.Neb) 3 ml INHALE RQ4H WHILE AWAKE [place] Last Admin: 05/07/23 11:54 Dose: 3 ml Documented By: MAGALIS Docusate Sodium (Docusate Sodium 100 Mg Capsule) 100 mg PO DAILY PRN PRN Reason: Constipation Enoxaparin Sodium (Enoxaparin Sodium 40 Mg/0.4 Ml Syringe) 40 mg SUBCUT Q24H [facility] Last Admin: 05/06/23 17:51 Dose: 40 mg Documented By: FERNANDO Folic Acid (Folic Acid 1 Mg Tablet) 1 mg PO DAILY [facility] Last Admin: 05/07/23 09:21 Dose: 1 mg Documented By: JUNAID Azithromycin 500 mg/ Sodium (Chloride) 250 mls @ 125 mls/hr IV Q24H [facility] Stop: 05/07/23 17:59 Last Infusion: 05/06/23 18:41 Dose: 0 mls/hr Documented By: FERNANDO Thiamine HCl 100 mg/ Sodium (Chloride) 101 mls @ 202 mls/hr IV DAILY [facility] Last Infusion: 05/07/23 10:32 Dose: 0 mls/hr Documented By: JUNAID Methylprednisolone Sodium Succinate (Methylprednisolone Sod Succ 40 Mg/Ml Vial) 40 mg IVPUSH Q8H [facility] Last Admin: 05/07/23 09:21 Dose: 40 mg Documented By: JUNAID Omeprazole (Omeprazole 20 Mg Capsule.Dr) 20 mg PO BID@0630,1630 [facility] Last Admin: 05/07/23 05:32 Dose: 20 mg Documented By: ANTNASIMA Ondansetron HCl (Ondansetron Hcl 4 Mg/2 Ml Vial) 4 mg IVPUSH Q8H PRN PRN Reason: Nausea and Vomiting Pharmacy Consult (Consult Rx Etoh Phenob Po Only) 1 each MISCELLANE ONCE PRN; Protocol PRN Reason: Consult order Phenobarbital (Phenobarbital 15 Mg Tablet) 45 mg PO BID [facility] Stop: 05/07/23 21:01 Last Admin: 05/07/23 09:21 Dose: 45 mg Documented By: JUNAID Phenobarbital (Phenobarbital 30 Mg Tablet) 30 mg PO BID [facility] Stop: 05/09/23 21:01 Phenobarbital (Phenobarbital 15 Mg Tablet) 15 mg PO DAILY [facility] Stop: 05/11/23 09:01 Sodium Chloride (0.9 % Sodium Chloride Flush 3 Ml Syringe) 3 ml IVFLUSH QSHIFT [facility] Last Admin: 05/07/23 09:42 Dose: Not Given Documented By: JUNAID Non-Admin Reason: Previously Administered Labs 05/06/23 06:13 05/07/23 05:44 Labs: Laboratory Results - last 24 hr 05/07/23 05/07/23 05:44 05:45 PT 10.4 INR 0.9 Anion Gap 12 Estim Creat Clear Calc 90.2 Estimated GFR > 60 Random Glucose 126 H Calcium 9.8 Magnesium 2.2 Assessment and Plan (1) Acute exacerbation of chronic obstructive airways disease: Status: Acute (2) Alcohol withdrawal: Status: Acute Plan 58yo M with COPD, EtOH cirrhosis, AUD, GERD, depression admitted for COPD exac + EtOH withdrawal COPD exac -feeling better less short of breath will wean IV Solu Medrol, continue azithromycin, change nebs to q.i.d. scheduled continue as needed - maintenance inhaler upon discharge - declines NRT, counseled smoking cessation EtOH withdrawal - phenobarbital taper, thiamine, folate, being followed by recovery team Leukocytosis likely due to steroids no fever no chills no worsening cough, chest x-ray no pneumonia, no urinary symptoms. compensated EtOH cirrhosis - LFTs WNL, no abdominal pain normal albumin, normal INR GERD - PPI VTE ppx - LMWH dispo - eventual home In my clinical judgment, the patient requires continued inpatient h ospitalization for the following reasons: EtOH withdrawal and COPD exacerbation Time Spent With Patient Time: Total time managing care of this patient today ____ minutes. Quality Stroke Does the patient have a stroke diagnosis?: No VTE Prior VTE?: No VTE Risk Level:: Medical - moderate - high VTE Device Contraindication: Treatment Not Indicated VTE Drug Contraindication: N/A - Med Ordered
[2023-05-07] MEDS: Azithromycin 500 MG in 0.9 % Sodium Chloride 250 ML 125 MG IV (16:24)
[2023-05-07] MEDS: Enoxaparin Sodium 40 MG/0.4 ML SYRINGE SUBCUT (18:26)
--- NOTE | 2023-05-07 19:50 | MHC.RECOVSUP ---
? Reason for consult Recovery Support o Current location: [facility]- o Identified substance use concern: Alcohol - Support ? Intervention: o Community resources provided o Harm reduction discussion ? Plan: o Patient to follow up with [facility] after discharge ? Additional information: Met with Patient and we talked about Harm reduction and recovery.. we talk about the recovery center as a was to connect with other people in recovery.. Resources was given to patient
[2023-05-07] MEDS: 0.9 % Sodium Chloride Flush 3 ML SYRINGE IVFLUSH (20:33)
[2023-05-08] MEDS: Omeprazole 20 MG CAPSULE.DR PO (05:53)
[2023-05-08 07:23] VITALS: BP 149/92; PULSE 77; RESP 20; TEMP 36.2; O2SAT 95
[2023-05-08] MEDS: Albuterol/Iprat 2.5/0.5MG 3 ML AMPUL.NEB INHALE ×2 (08:02→14:22)
[2023-05-08 08:03] VITALS: PULSE 62; RESP 16; O2SAT 96
[2023-05-08] MEDS: Thiamine HCL 100 MG TABLET PO (09:23)
[2023-05-08] MEDS: PHENobarbitaL 30 MG TABLET PO (09:23)
[2023-05-08] MEDS: methylPREDNISolone Sod Succ 40 MG/ML VIAL IVPUSH (09:23)
[2023-05-08] MEDS: 0.9 % Sodium Chloride Flush 3 ML SYRINGE IVFLUSH (09:24)
--- NOTE | 2023-05-08 09:48 | P.PNIM_ITS ---
Subjective Subjective Date of Service: 05/08/23 Interval History: Complaining of cough and shortness of breath this morning, requesting for updraft treatments for home has been using home inhalers every 2 hours, willing to quit smoking and agreeable to abstain from alcohol being followed by Addiction Team, tolerating diet no nausea, no vomiting, no other acute issues overnight. Review of Systems All other systems reviewed and negative. Physical Exam Vital Signs: Vital Signs: Last Vital Signs Temp 97.2 F 05/08/23 07:23 Pulse 62 05/08/23 08:03 Resp 16 05/08/23 08:03 BP 149/92 H 05/08/23 07:23 Pulse Ox 95 05/08/23 07:23 O2 Del Method Room Air 05/08/23 07:23 BMI result Body Mass Index 20.8 Const: Other: Gen: No acute distress, mild tremors HEENT: sclera anicteric, moist mucus membranes Neck: supple Lungs: diminished breath sound, no wheeze, no rhonchi Heart: regular rate and rhythm, no murmurs Abd: soft, non-tender, non-distended, bowel sounds audible Ext: no edema Skin: warm/well-perfused Neuro: alert and oriented x3, no focal findings Psych: appropriate affect Objective Data Active Medications Acetaminophen (Acetaminophen 325 Mg Tablet) 650 mg PO Q6H PRN PRN Reason: Pain, Mild (Pain Scale 1-3) Last Admin: 05/07/23 13:01 Dose: 650 mg Documented By: JUNAID Al Hydroxide/Mg Hydroxide (Magnesium Hydrox/Alum Hydrox 30 Ml Oral.Susp) 30 ml PO Q4H PRN PRN Reason: heartburn Albuterol Sulfate (Albuterol Sulfate (0.083%) 2.5 Mg/3 Ml Vial.Neb) 2.5 mg IN LEE Q2H PRN PRN Reason: Shortness of Breath/Wheezing Albuterol/Ipratropium (Albuterol/Iprat 2.5/0.5mg 3 Ml Ampul.Neb) 3 ml INHALE RQ6H WHILE AWAKE [place] Last Admin: 05/08/23 08:02 Dose: 3 ml Documented By: RONDA Docusate Sodium (Docusate Sodium 100 Mg Capsule) 100 mg PO DAILY PRN PRN Reason: Constipation Enoxaparin Sodium (Enoxaparin Sodium 40 Mg/0.4 Ml Syringe) 40 mg SUBCUT Q24H [facility] Last Admin: 05/07/23 18:26 Dose: 40 mg Documented By: TIMMYISLARRY Fluticasone/Vilanterol (Fluticasone/Vilanterol 100/25 Blst.W.Dev) 1 puff INHALE RDAILY [facility] Thiamine HCl 100 mg/ Sodium (Chloride) 101 mls @ 202 mls/hr IV DAILY [facility] Last Admin: 05/08/23 09:17 Dose: Not Given Documented By: HOME Non-Admin Reason: Administered by Alternate Route Methylprednisolone Sodium Succinate (Methylprednisolone Sod Succ 40 Mg/Ml Vial) 40 mg IVPUSH BID [facility] Last Admin: 05/08/23 09:23 Dose: 40 mg Documented By: HOME Omeprazole (Omeprazole 20 Mg Capsule.Dr) 20 mg PO BID@0630,1630 [facility] Last Admin: 05/08/23 05:53 Dose: 20 mg Documented By: TOBY Ondansetron HCl (Ondansetron Hcl 4 Mg/2 Ml Vial) 4 mg IVPUSH Q8H PRN PRN Reason: Nausea and Vomiting Pharmacy Consult (Consult Rx Etoh Phenob Po Only) 1 each MISCELLANE ONCE PRN; Protocol PRN Reason: Consult order Phenobarbital (Phenobarbital 30 Mg Tablet) 30 mg PO BID [facility] Stop: 05/09/23 21:01 Last Admin: 05/08/23 09:23 Dose: 30 mg Documented By: HOME Phenobarbital (Phenobarbital 15 Mg Tablet) 15 mg PO DAILY [facility] Stop: 05/11/23 09:01 Sodium Chloride (0.9 % Sodium Chloride Flush 3 Ml Syringe) 3 ml IVFLUSH QSHIFT [facility] Last Admin: 05/08/23 09:24 Dose: 3 ml Documented By: HOME Thiamine HCl (Thiamine Hcl 100 Mg Tablet) 100 mg PO DAILY [facility] Last Admin: 05/08/23 09:23 Dose: 100 mg Documented By: HOME Labs 05/06/23 06:13 05/07/23 05:44 Assessment and Plan (1) Acute exacerbation of chronic obstructive airways disease: Status: Acute (2) Alcohol withdrawal: Status: Acute Plan 58yo M with COPD, EtOH cirrhosis, AUD, GERD, depression, admitted for COPD exac + EtOH withdrawal COPD exac -feeling better , has cough and short of breath ,on IV Solu Medrol 40mg bid, azithromycin, continue nebs q.i.d. scheduled and as needed - will add Breo , will arrange home nebulizers, using rescue inhalers q.2 hours - declines NRT, strongly recommend to abstain from smoking EtOH withdrawal - phenobarbital taper, thiamine, folate, being followed by recovery team Leukocytosis likely due to steroids, no fever, no chills, no worsening cough, chest x-ray no pneumonia, no urinary symptoms. compensated EtOH cirrhosis - LFTs WNL, no abdominal pain, normal albumin, normal INR GERD - PPI VTE ppx - LMWH dispo - eventual home In my clinical judgment, the patient requires continued inpatient hospitalization for the following reasons: EtOH withdrawal and COPD exacerbation Time Spent With Patient Time: Total time managing care of this patient today ____ minutes. Quality Stroke Does the patient have a stroke diagnosis?: No VTE Prior VTE?: No VTE Risk Level:: Medical - moderate - high VTE Device Contraindication: Treatment Not Indicated VTE Drug Contraindication: N/A - Med Ordered
--- NOTE | 2023-05-08 14:22 | PM.DS ---
DS: Providers Provider Date of Service: 05/08/23 Date of admission: 05/05/23 16:12 Primary care physician: Yoseph Syed MD Consults: 05/05/23 16:10 Addiction Medicine Routine Consulting Provider: Addiction Covering Reason for consultation: etoh dependence DS: Diagnosis Discharge Diagnosis (1) Acute exacerbation of chronic obstructive airways disease: Status: Acute (2) Alcohol withdrawal: Status: Acute DS: Summary Hospital Course Hospital Course: History of presenting illness: Date of Service: 05/05/23 Attending physician on admission: Abdiel Moffett Chief Complaint: sob 58 year old male with history COPD, alcoholic cirrhosis, alcohol dependence, GERD, depression presented to the the ED earlier this morning for evaluation of progressively worsening dyspnea on exertion, dyspnea with speaking, lightheadedness, and wheezing over the last 2 months.? He has now developed a productive cough with dark yellow/black sputum production.? He does not use any maintenance inhalers for COPD but reports frequent use of his albuterol with some relief of symptoms.? He states he had quit smoking for a period but is now smoking 3 packs of cigarettes daily when he is drinking alcohol.? He states he had also quit alcohol for a period of days but resumed last week.? He is consuming 624 oz cans of beer on a daily basis and last drink was consumed around 17:00 last night.? He denies any history of alcohol withdrawal seizure.? He denies any fevers, chills, congestion, sore throat, abdominal pain, nausea, vomiting, diarrhea, palpitations, orthopnea, PND, or chest pain.? No known sick contacts. On arrival, vitals stable however throughout the day became progressively tachypneic and developed tachycardia to 124.? He is afebrile and there is no hypoxia.? There is no leukocytosis.? Renal function normal, electrolyte levels normal, LFTs normal.? CXR without any acute cardiopulmonary findings.? In the ED, received 60 mg prednisone, 1 g IV Rocephin, 1 L NS, 2 g IV magnesium, albuterol, and DuoNebs.? Unfortunately, patient was being observed and appear to have been improving but when ambulating became significantly dyspneic with accessory muscle usage.? On exam, patient is also notably tremulous with very slight diaphoresis and anxiety consistent with acute alcohol withdrawal.? Patient will be admitted for further management of acute COPD exacerbation with acute alcohol withdrawal. Hospital course: 58yo M with COPD, EtOH cirrhosis, AUD, GERD, depression, admitted for COPD exac + EtOH withdrawal Acute COPD exac admitted to medical floor treated with IV steroids and updraft treatment, , since patient is not hypoxic and shortness of breath has improved, he is being discharged home on Breo 1 puff daily, Spiriva at bedtime, and DuoNeb updraft treatment 4 times a day for few days and as needed, he is also being discharged home on prednisone 20 mg daily for 5 days he has been strongly advised to abstain from smoking. EtOH withdrawal treated with phenobarb protocol thiamine and folate and was evaluated by recovery team outpatient referrals given. Leukocytosis likely due to steroids, no fever, no chills, no worsening cough, chest x-ray no pneumonia, no urinary symptoms.? compensated EtOH cirrhosis - LFTs WNL, no abdominal pain, normal albumin, normal INR GERD continue Prilosec Time Spent with Patient Time attestation: Total time managing care of this patient today ____ minutes. Discharge coordination time: Greater than 30 minutes Quality: Safe Use of Opioids Does Pt have an Active Cancer Diagnosis on the Problem List?: No Quality: Stroke Does the patient have a stroke diagnosis?: No Physical Exam Vital Signs: Vital Signs: Last Vital Signs Temp 97.2 F 05/08/23 07:23 Pulse 62 05/08/23 08:03 Resp 16 05/08/23 08:03 BP 149/92 H 05/08/23 07:23 Pulse Ox 95 05/08/23 07:23 O2 Del Method Room Air 05/08/23 07:23 BMI result Body Mass Index 20.8 Const: Other: Gen:? No acute dis tress, mild tremor s HEENT: sclera an icteric, moist muc us membranes Neck: supple Lungs: dim inished breath oralia nd, no wheeze, no rhonchi Heart: reg ular rate and rhyt hm, no murmurs Abd : soft, non-tender , non-distended, b owel sounds audibl e Ext: no edema Sk in: warm/well-perf used Neuro: alert and oriented x3, n o focal findings P sych: appropriate affect Discharge Plan Discharge Anticipated Discharge Date/Time: 05/08/23 14:09 Patient Disposition: Home, Self-Care Discharge Diagnosis: Acute COPD exacerbation Alcohol withdrawal Referrals: Yoseph Syed MD [Primary Care Provider] - 2 days Discharge Medications: New fluticasone furoate-vilanterol [Breo Ellipta] 100-25 mcg/dose Blister With Device 1 ea inhalation RDAILY Qty: 60 0RF prednisone 20 mg tablet 20 mg PO DAILY Qty: 5 0RF Spiriva Respimat 1.25 mcg/actuation mist 2 puff inhalation BEDTIME Qty: 4 0RF ipratropium-albuterol 0.5 mg-3 mg(2.5 mg base)/3 mL Solution For Nebulization 3 ml inhalation RQ6H WHILE AWAKE Qty: 90 0RF Continued omeprazole 20 mg capsule,delayed release(DR/EC) 20 mg PO BID@0630,1630 albuterol sulfate [Ventolin HFA] 90 mcg/actuation HFA aerosol inhaler 1 inh inhalation QID PRN (Reason: shortness of breath or wheezing) Qty: 8.5 1RF Discharge Orders: Discharge Order (Routine); Ordered 05/08/23 Ordered By: Maura Medina Diet: Advance to usual diet Activity on Discharge: As tolerated Stand Alone Forms: Patient Portal Discharge page Activity Restrictions/Additional Instructions: continue steroids starting tomorrow. Take new inhalers Breo and Spiriva Use DuoNeb updraft treatment 4 times a day for few days and then as needed for shortness of breath Return to check with worsening shortness of breath Care Plan Goals: Strongly recommend to abstain from alcohol and quit smoking Health Concerns: smoking/alcohol Plan of Treatment: Outpatient follow-up with primary care physician Assessment: As above Patient Instructions: How to Use a Metered-Dose Inhaler (ED), COPD (Chronic Obstructive Pulmonary Disease) (ED)
[2023-05-08 14:29] VITALS: PULSE 75; RESP 18; O2SAT 96
--- NOTE | 2023-05-08 14:29 | MHC.CM.PN ---
PT MEDICALLY CLEARED FOR D/C HOME SELF-CARE, ANTIC PT'S BROTHER WILL TRANSPORT PT HOME.
--- NOTE | 2023-05-18 15:54 | PM.EVENT ---
Documented by User: Nilsa ParadaNavdeepSteven, [employer] INSPECT[employer] P[employer]ER 05/18/23 15:58 Event Note Date of Service: 05/18/23 Event Note: Received a voice mail from patient requesting MD call his pharmacy as there is a problem with his inhaler and diagnosis codes were needed. Pt reports off meds since discharge due to this issue and asks for return call [phone]. Discussed with [facility], case mgt who referred to MD of record. Text to Dr. Medina who had texted Dr. Weaver who states PCP needs to be called. Return call to pt at [phone] to inform him of these instructions. Time Spent With Patient Time: Total time managing care of this patient today ____ minutes. Documented by User: Linden Chowdary MD 05/24/23 18:04 Event Note Date of Service: 05/24/23
== END 2023-05-08 14:45 | disposition home or self-care (01) | DRG 191 ==
LOC: HO.ED 14:46 → HO.EDOVER 16:18 → HO.IMC 22:57
PROVIDERS: Family Medicine; Admitting Provider Physician Assistant; Emergency Provider Emergency Medicine; PCP Internal Medicine; Visit Provider Hospitalist
DX: J44.1 Chronic obstructive pulmonary disease with (acute) exacerbation (principal); F10.239 Alcohol dependence with withdrawal, unspecified; F33.9 Major depressive disorder, recurrent, unspecified; K70.30 Alcoholic cirrhosis of liver without ascites; K21.9 Gastro-esophageal reflux disease without esophagitis; F17.210 Nicotine dependence, cigarettes, uncomplicated; Z71.6 Tobacco abuse counseling; Z79.899 Other long term (current) drug therapy
CPT/HCPCS: 36415; 71045; 80048; 80053; 83735; 83880; 85025; 85610; 93005; 94640; 99285; J0456; J0696; J1650; J2560; J2920; J3411; J3475

== ENCOUNTER → 2023-05-05 02:08 | Outpatient (BNV) | payer OTHER, MEDICAID, SELFPAY | PROVIDERS: Admitting Provider Physician Assistant; Emergency Provider Emergency Medicine; PCP Internal Medicine; Visit Provider Internal Medicine Cardiovascular Disease | DX: R06.02 Shortness of breath (principal) | CPT/HCPCS: 93010 ==

== ENCOUNTER → 2023-05-05 16:12 | Outpatient (BNV) | payer OTHER, MEDICAID, SELFPAY | PROVIDERS: Admitting Provider Physician Assistant; Emergency Provider Emergency Medicine; PCP Internal Medicine; Visit Provider Family Medicine | DX: F10.939 Alcohol use, unspecified with withdrawal, unspecified (principal); J44.1 Chronic obstructive pulmonary disease with (acute) exacerbation | CPT/HCPCS: 99223; 99232; 99233; 99239; 99499 ==

== ENCOUNTER 2023-05-15 07:34 | Outpatient (AMB) | payer OTHER, MEDICAID, SELFPAY ==
--- NOTE | 2023-05-15 07:36 | MHC.PC.OV ---
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 Accompanied by: Self / Same As Patient Allergies bee pollen [BEE STINGS] Allergy (Unknown, Verified 05/15/23 07:38) HIVES Medication List - Last Reconciled 05/15/23 by Yoseph Syed MD albuterol sulfate 90 mcg/actuation (Ventolin HFA) 1 inh inhalation QID PRN ipratropium-albuterol 0.5 mg-3 mg(2.5 mg base)/3 mL 3 mL inhalation RQ6H WHILE AWAKE omeprazole 20 mg PO BID@0630,1630 90 days tiotropium bromide 1.25 mcg/actuation (Spiriva Respimat) 2 puffs inhalation BEDTIME Tobacco use date assessed: 05/15/23 Dental Screening Dental Screen Date: 05/15/23 Did you have a dental visit in the last 12 months?: Yes Did you have a dental problem in the last 6 months where you did not have access to dental care?: No Was dental information given to patient?: Patient has dentist HPI discharge follow up [facility] HPI Details Patient presented to emergency room 05/08/2023 [facility] with a chief complaint of shortness of breath. Patient is 58-year-old male with a history of COPD, alcoholic cirrhosis alcohol dependence, GERD, depression. Patient was having productive cough of yellow to black sputum. He does not use any maintenance inhaler for COPD management but was using his rescue inhaler more frequently. He smoked 3 packs of cigarettes daily Patient had tachycardia in the emergency room but he was afebrile and there was no hypoxia there was no leukocytosis, renal functions normal, electrolytes normal, LFT normal Chest x-ray without any acute cardiopulmonary finding. He was treated with 60 mg of prednisone in emergency room and intravenous antibiotic along with IV fluids and magnesium. Patient was given updraft treatments. He was also having alcohol withdrawal symptoms with diaphoresis and tremulousness He was admitted for further management after management he was discharged home with Breo inhaler, Spiriva at bedtime and DuoNeb updraft treatments 4 times a day He was also given script for prednisone 20 mg for 5 days He was given outpatient referral for alcohol dependence He came in today for a follow-up appointment Patient seems to be drunk he has started drinking again. Encouraged him to call the alcoholic anonymous and therapist for help. He has a pamphlet and the information He tells me that he has stopped smoking. His respiratory symptom has improved but he is not using at updraft machine patient tells me that medication was not sent I have sent Breo, Spiriva, DuoNeb and albuterol for him It seems as if he does not know how to use the updraft machine as well. Patient says that he will bring the machine over today so we can teach him. Patient is return in 3 weeks for follow-up [facility] Medical History Alcoholism Chronic GERD Depression, major, recurrent Difficulty sleeping LFT elevation Lipid disorder Surgical History History of esophagogastroduodenoscopy (EGD) Hx of colonoscopy No pertinent past surgical history Family History Father No problems noted. Mother No problems noted. Social History Household Members: None Housing: Apartment Do you presently have visiting nurse or other home services: No Alcohol intake: current Patient Tobacco Use Status: Current everyday Tobacco user Cigarette Packs Per Day: 2 e-Cigarette/Vaping Use: Never Used service: No Current occupational status: retired Cognitive needs: No Hearing needs: No Vision needs: Yes Questionnaire Thrive Questionnaire Date Thrive assessed: 05/06/23 MARTIN-7 AMB Questionnaire MARTIN-7 Date MARTIN - 7 assessed: 02/04/23 Source: Developed by Drs. Ba Harris, Cindy Gerardo, Darien Siddiqui and colleagues, with an educational avelino from [employer]. Review of Systems Const Denies chills and Denies fever(s) ENT Denies epistaxis and Denies nasal discharge Card Denies chest pain Resp Denies hemoptysis GI Denies diarrhea and Denies nausea Skin/Breast Denies rash Neuro Reports no additional complaints Psych Reports no additional complaints Endo Reports no additional complaints Physical exam (Primary Care) Vital Signs: Last Vital Signs Pulse 104 H 05/15/23 07:41 BP 128/70 05/15/23 07:41 Pulse Ox 97 05/15/23 07:41 BMI result Body Mass Index 20.9 Tobacco/Smoking Status: Tobacco use Status Tobacco use date assessed 05/15/23 05/15/23 07:42 Patient Tobacco Use Status Current everyday Tobacco 05/15/23 07:43 e-Cigarette/Vaping Use Never Used 05/15/23 07:43 Thrive Assessment: Date of Thrive Assessment Date Thrive assessed 05/06/23 05/15/23 07:42 Const General: cooperative, comfortable and no acute distress Orientation/consciousness: patient oriented x3 HENMT Head: Yes normocephalic Eyes General: appearance normal, both eyes and all related structures Neck Neck: Yes supple Resp Other: Minimal wheezing with deep breath Effort & Inspection: normal respiratory effort, no cough and no stridor Cardio Rhythm: regular rhythm Heart sounds: S1 normal heart sound present and S2 normal heart sound present Skin General skin exam: turgor normal Neuro General: patient oriented x3, tone normal and moves all extremities Extrem Right lower extremity: no edema Left lower extremity: no edema Psych Other: Alert oriented x3 however seems drunk , having difficulty understanding the instructions Assessment and Plan Assessment & Plan (1) Hospital discharge follow-up: Code(s): Z09 - Encounter for follow-up examination after completed treatment for conditions other than malignant neoplasm (2) COPD exacerbation: Code(s): J44.1 - Chronic obstructive pulmonary disease with (acute) exacerbation (3) Alcoholism: Comment: CONSEQUENCES OF DRINKING PROBLEMS There are a number of serious consequences of drinking alcohol excessively -------Excessive alcohol consumption is a leading preventable cause of in the [place]. --------Drinking alcohol increases the risk of traffic accidents, suicide, drowning, and other serious injuries. -------Alcohol use continues to be the leading cause of injuries treated in trauma centers and emergency departments . --------Alcohol-related liver disease may lead to end-stage liver disease (cirrhosis) and . --------Alcohol increases the risk of certain cancers of the mouth, esophagus, throat, liver, and breast. Code(s): F10.20 - Alcohol dependence, uncomplicated (4) Chronic GERD: Code(s): K21.9 - Gastro-esophageal reflux disease without esophagitis (5) Liver cirrhosis, alcoholic: Code(s): K70.30 - Alcoholic cirrhosis of liver without ascites Plan Patient presented to emergency room 05/08/2023 [facility] with a chief complaint of shortness of breath. Patient is 58-year-old male with a history of COPD, alcoholic cirrhosis alcohol dependence, GERD, depression. Patient was having productive cough of yellow to black sputum. He does not use any maintenance inhaler for COPD management but was using his rescue inhaler more frequently. He smoked 3 packs of cigarettes daily Patient had tachycardia in the emergency room but he was afebrile and there was no hypoxia there was no leukocytosis, renal functions normal, electrolytes normal, LFT normal Chest x-ray without any acute cardiopulmonary finding. He was treated with 60 mg of prednisone in emergency room and intravenous antibiotic along with IV fluids and magnesium. Patient was given updraft treatments. He was also having alcohol withdrawal symptoms with diaphoresis and tremulousness He was admitted for further management after management he was discharged home with Breo inhaler, Spiriva at bedtime and DuoNeb updraft treatments 4 times a day He was also given script for prednisone 20 mg for 5 days He was given outpatient referral for alcohol dependence He came in today for a follow-up appointment Patient seems to be drunk he has started drinking again. Encouraged him to call the alcoholic anonymous and therapist for help. He has a pamphlet and the information He tells me that he has stopped smoking. His respiratory symptom has improved but he is not using at updraft machine patient tells me that medication was not sent I have sent Breo, Spiriva, DuoNeb and albuterol for him It seems as if he does not know how to use the updraft machine as well. Patient says that he will bring the machine over today so we can teach him. Patient is return in 3 weeks for follow-up Medications: Changed From omeprazole 20 mg PO BID@0630,1630 To omeprazole 20 mg PO BID@0630,1630 180 caps 0RF 90 days Refilled tiotropium bromide 1.25 mcg/actuation (Spiriva Respimat) 2 puffs inhalation BEDTIME 4 grams 0RF ipratropium-albuterol 0.5 mg-3 mg(2.5 mg base)/3 mL 3 mL inhalation RQ6H WHILE AWAKE 90 mL 0RF albuterol sulfate 90 mcg/actuation (Ventolin HFA) 1 inh inhalation QID PRN 8.5 grams 1RF shortness of breath or wheezing fluticasone furoate-vilanterol 100-25 mcg/dose (Breo Ellipta) 1 ea inhalation RDAILY 60 ea 0RF Discontinued omeprazole 20 mg PO BID 90 days 180 caps 1RF Coding Level of Care Code Est Pt Level 5 (57857) Diagnoses Hospital discharge follow-up Z09 COPD exacerbation J44.1 Alcoholism F10.20 Chronic GERD K21.9 Liver cirrhosis, alcoholic K70.30 Time Spent (min) 45 Comment Reviewing chart, [id number], charting, meds, teachings updraft machine
[2023-05-15 07:41] VITALS: BP 128/70; PULSE 104; O2SAT 97; BMI 20.9
== END 2023-05-15 10:14 | disposition home or self-care (01) ==
PROVIDERS: PCP Internal Medicine; Visit Provider Internal Medicine
DX: J44.1 Chronic obstructive pulmonary disease with (acute) exacerbation (principal); F10.20 Alcohol dependence, uncomplicated; K70.30 Alcoholic cirrhosis of liver without ascites; K21.9 Gastro-esophageal reflux disease without esophagitis; Z09 Encounter for follow-up examination after completed treatment for conditions other than malignant neoplasm
CPT/HCPCS: 99215

== ENCOUNTER 2023-09-08 13:42 | Outpatient (AMB) | payer OTHER, MEDICAID, SELFPAY ==
[2023-09-08 13:44] VITALS: BP 124/86; PULSE 71; O2SAT 98; BMI 22.0
--- NOTE | 2023-09-08 13:44 | MHC.PC.OV ---
Vital Signs 09/08/23 13:44 Height 5 ft 10 in Weight 153 lb 4 oz BMI 22.0 BP 124/86 Blood Pressure Location Rt brachial Position Sitting Pulse 71 Pulse Source Pulse Oximeter Pulse Oximetry (%) 98 Oxygen Delivery Method Room Air Intake Visit Reasons: 6m follow up/No showed 08/05 Allergies bee pollen [BEE STINGS] Allergy (Unknown, Verified 09/08/23 13:44) HIVES Medication List - Last Reconciled 09/08/23 by Yoseph Syed MD albuterol sulfate 90 mcg/actuation (Ventolin HFA) 1 inh inhalation QID PRN fluticasone furoate-vilanterol 100-25 mcg/dose (Breo Ellipta) 1 ea inhalation RDAILY ipratropium-albuterol 0.5 mg-3 mg(2.5 mg base)/3 mL 3 mL inhalation RQ6H WHILE AWAKE nebulizers [id number] Nebulizer Comprsr[employer] reuse and supplies omeprazole 20 mg PO BID@0630,1630 90 days tiotropium bromide 1.25 mcg/actuation (Spiriva Respimat) 2 puffs inhalation BEDTIME Tobacco use date assessed: 09/08/23 Dental Screening Dental Screen Date: 09/08/23 Did you have a dental visit in the last 12 months?: Yes Did you have a dental problem in the last 6 months where you did not have access to dental care?: No Was dental information given to patient?: Patient has dentist HPI 6m follow up/No showed 08/05 HPI Details Patient is 58-year-old gentleman came in today for his appointment last time he was seen in April he was supposed to come in in 3 weeks for follow-up appointment but he did not Patient is a smoker and have a COPD Also continued to drink alcohol however he is trying to cut down on both smoking and alcohol it Patient have a history of liver cirrhosis without ascites. Suffers from depression as well, but do not want to take any medications. GERD is stable with omeprazole I have sent his inhalers refills. Patient was instructed to come every 3 months for follow-up appointment. Is up-to-date on his flu, COVID, RSV vaccines PFSH Medical History Depression, major, recurrent Difficulty sleeping Chronic GERD Lipid disorder Alcoholism LFT elevation Surgical History History of esophagogastroduodenoscopy (EGD) Hx of colonoscopy No pertinent past surgical history Family History Father No problems noted. Mother No problems noted. Household Members: None Housing: Apartment Do you presently have visiting nurse or other home services: No Alcohol intake: current Patient Tobacco Use Status: Current everyday Tobacco user Cigarette Packs Per Day: 2 e-Cigarette/Vaping Use: Never Used service: No Current occupational status: retired Cognitive needs: No Hearing needs: No Vision needs: Yes Questionnaire Thrive Questionnaire Date Thrive assessed: 05/06/23 AUDIT C Alcohol Use Questionnaire (AUDIT-C) 1. How often do you have a drink containing alcohol?: 4 or more times a week 2. How many drinks containing alcohol do you have on a typical day when you are drinking?: 5 or 6 3. How often do you have six or more drinks on one occasion?: Daily or almost daily Total Score: 10 MARTIN-7 AMB Questionnaire MARTIN-7 Date MARTIN - 7 assessed: 02/04/23 Source: Developed by Drs. Ba Harris, Cindy Gerardo, Darien Siddiqui and colleagues, with an educational avelino from [employer] Review of Systems Const Denies chills and Denies fever(s) ENT Denies epistaxis and Denies nasal discharge Card Denies chest pain Resp Denies chest congestion, Denies cough and Denies hemoptysis GI Denies diarrhea and Denies nausea Skin/Breast Denies rash Neuro Reports no additional complaints Psych Reports no additional complaints Endo Reports no additional complaints Physical exam (Primary Care) Vital Signs: Last Vital Signs Pulse 71 09/08/23 13:44 BP 124/86 09/08/23 13:44 Pulse Ox 98 09/08/23 13:44 Oxygen Delivery Method Room Air 09/08/23 13:44 BMI result Body Mass Index 22.0 Tobacco/Smoking Status: Tobacco use Status Tobacco use date assessed 09/08/23 09/08/23 13:45 Patient Tobacco Use Status Current everyday Tobacco 09/08/23 13:45 e-Cigarette/Vaping Use Never Used 09/08/23 13:45 Thrive Assessment: Date of Thrive Assessment Date Thrive assessed 05/06/23 09/08/23 13:45 Const General: cooperative, comfortable and no acute distress Orientation/consciousness: patient oriented x3 HENMT Head: Yes normocephalic Eyes General: appearance normal, both eyes and all related structures Neck Neck: Yes supple Resp Effort & Inspection: normal respiratory effort, no cough and no stridor Cardio Rhythm: regular rhythm Heart sounds: S1 normal heart sound present and S2 normal heart sound present Skin General skin exam: turgor normal Neuro General: patient oriented x3, tone normal and moves all extremities Extrem Right lower extremity: no edema Left lower extremity: no edema Assessment and Plan Assessment & Plan (1) Liver cirrhosis, alcoholic: Code(s): K70.30 - Alcoholic cirrhosis of liver without ascites Qualifiers: Ascites presence: without ascites Qualified Code(s): K70.30 - Alcoholic cirrhosis of liver without ascites (2) Depression, major, recurrent: Code(s): F33.9 - Major depressive disorder, recurrent, unspecified Qualifiers: Active/Remission status: in partial remission Qualified Code(s): F33.41 - Major depressive disorder, recurrent, in partial remission (3) Difficulty sleeping: Code(s): G47.9 - Sleep disorder, unspecified (4) Chronic GERD: Code(s): K21.9 - Gastro-esophageal reflux disease without esophagitis (5) Lipid disorder: Code(s): E78.9 - Disorder of lipoprotein metabolism, unspecified (6) Alcoholism: Comment: CONSEQUENCES OF DRINKING PROBLEMS There are a number of serious consequences of drinking alcohol excessively -------Excessive alcohol consumption is a leading preventable cause of in the [place]. --------Drinking alcohol increases the risk of traffic accidents, suicide, drowning, and other serious injuries. -------Alcohol use continues to be the leading cause of injuries treated in trauma centers and emergency departments . --------Alcohol-related liver disease may lead to end-stage liver disease (cirrhosis) and . --------Alcohol increases the risk of certain cancers of the mouth, esophagus, throat, liver, and breast. Code(s): F10.20 - Alcohol dependence, uncomplicated (7) LFT elevation: Code(s): R79.89 - Other specified abnormal findings of blood chemistry (8) Distal paresthesia: Code(s): R20.2 - Paresthesia of skin (9) Alcoholic peripheral neuropathy: Code(s): G62.1 - Alcoholic polyneuropathy Plan Patient is 58-year-old gentleman came in today for his appointment last time he was seen in April he was supposed to come in in 3 weeks for follow-up appointment but he did not Patient is a smoker and have a COPD Also continued to drink alcohol however he is trying to cut down on both smoking and alcohol it Patient have a history of liver cirrhosis without ascites. 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 GERD is stable with omeprazole I have sent his inhalers refills. Patient was instructed to come every 3 months for follow-up appointment. Is up-to-date on his flu, COVID, RSV vaccines Medications: Changed From ipratropium-albuterol 0.5 mg-3 mg(2.5 mg base)/3 mL 3 mL inhalation RQ6H WHILE AWAKE 90 mL 0RF J44.1 - Chronic obstructive pulmonary disease with (acute) exacerbation To ipratropium-albuterol 0.5 mg-3 mg(2.5 mg base)/3 mL 3 mL inhalation TID 90 days PRN 180 mL 3RF shortness of breath or wheezing J44.1 - Chronic obstructive pulmonary disease with (acute) exacerbation Refilled omeprazole 20 mg PO BID@0630,1630 90 days 180 caps 0RF tiotropium bromide 1.25 mcg/actuation (Spiriva Respimat) 2 puffs inhalation BEDTIME 4 grams 0RF fluticasone furoate-vilanterol 100-25 mcg/dose (Breo Ellipta) 1 ea inhalation RDAILY 60 ea 0RF Coding Level of Care Code Est Pt Level 4 (34954) Diagnoses Alcoholic cirrhosis of liver without ascites K70.30 Ascites presence: without ascites Recurrent major depressive disorder, in partial remission F33.41 Active/Remission status: in partial remission Difficulty sleeping G47.9 Chronic GERD K21.9 Lipid disorder E78.9 Alcoholism F10.20 LFT elevation R79.89 Distal paresthesia R20.2 Alcoholic peripheral neuropathy G62.1
== END 2023-09-08 14:09 | disposition home or self-care (01) ==
PROVIDERS: PCP Internal Medicine; Visit Provider Internal Medicine
DX: F33.41 Major depressive disorder, recurrent, in partial remission (principal); K70.30 Alcoholic cirrhosis of liver without ascites; F10.20 Alcohol dependence, uncomplicated; G62.1 Alcoholic polyneuropathy; G47.9 Sleep disorder, unspecified; K21.9 Gastro-esophageal reflux disease without esophagitis; E78.9 Disorder of lipoprotein metabolism, unspecified; R79.89 Other specified abnormal findings of blood chemistry; R20.2 Paresthesia of skin
CPT/HCPCS: 99214

== ENCOUNTER 2023-11-03 02:58 | Emergency (ER) | payer OTHER, MEDICAID, SELFPAY ==
[2023-11-03 03:05] VITALS: BP 112/70; BP 122/73; PULSE 79; PULSE 82; RESP 20; TEMP 36.5; O2SAT 97; O2SAT 98; BMI 21.5
--- NOTE | 2023-11-03 04:02 | ED.GENADULT ---
HPI - General Adult General Chief complaint: General Medical Stated complaint: ETOH Time Seen by Provider: 11/03/23 03:47 Source: patient Mode of arrival: EMS Limitations: no limitations History of Present Illness HPI narrative: Patient comes to the emergency room complaining of alcohol intoxication and while he is here, patient also complaining of pain with walking for approximately 1 year. Patient states that sometimes his legs turn a darker color when it is cold, and when he warms his legs turned to normal color. Patient states that he also has pain with walking. Patient denies any falls. Patient admits to drinking alcohol prior to arrival. Patient also admits that he smokes heavily. Patient denies any chest pain or shortness of breath, no abdominal pain. Related Data Previous Rx's Medication Instructions Recorded albuterol sulfate 90 mcg/actuation 1 inh inhalation QID PRN shortness 05/15/23 aerosol inhaler (Ventolin HFA) of breath or wheezing #8.5 grams nebulizers #1 ea 07/11/23 fluticasone furoate 100 1 ea inhalation RDAILY #60 ea 09/08/23 mcg-vilanterol 25 mcg/dose inhalation powder (Breo Ellipta) ipratropium 0.5 mg-albuterol 3 mg 3 ml inhalation TID PRN shortness 09/08/23 (2.5 mg base)/3 mL nebulization of breath or wheezing 90 days #180 soln mL omeprazole 20 mg capsule,delayed 20 mg PO BID@0630,1630 90 days 09/08/23 release #180 caps tiotropium bromide 1.25 2 puff inhalation BEDTIME #4 grams 09/08/23 mcg/actuation mist for inhalation (Spiriva Respimat) Allergies Allergy/AdvReac Type Severity Reaction Status Date / Time bee pollen [BEE STINGS] Allergy Unknown HIVES Verified 10/29/23 08:55 Review of Systems Review of Systems: Constitutional : No Weight loss, No Fever, No Chills, No Night Sweats, No Fatigue, No Malaise ENT/Mouth : No Hearing loss, No Ear Pain, No Nasal Congestion, No Sinus Pain, No Hoarseness, No sore throat, No Rhinorrhea, No Swallowing Difficulty Eyes: No Eye Pain, No Swelling, No Redness, No Foreign Body, No Discharge, No Vision Changes Cardiovascular : No Chest Pain, No SOB, No Dyspnea on Exertion, No Orthopnea, No Edema, No Palpitations Respiratory : No Cough, No Sputum, No Wheezing, No Smoke Exposure, No Dyspnea Gastrointestinal : No Nausea, No Vomiting, No Diarrhea, No Constipation, No abdominal Pain, No Hematochezia, No Melena Genitourinary : no irregular bleeding, No Dysuria, No Urinary Frequency, No Hematuria, No Urinary Incontinence, No Urgency, No Flank Pain, No Urinary Flow Changes, No Hesitancy Musculoskeletal : Complaining of leg pain with walking, bluish discoloration of the legs with cold and returned to normal with warmth Skin : No Skin Lesions, No rash Neuro : No Weakness, No Numbness, No Paresthesias, No Loss of Consciousness, No Dizziness, No Headache Psych : No Anxiety/Panic, No Depression, No SI/HI/AH/VH, No Social Issues, Heme/Lymph: No Bruising, No Bleeding,No Lymphadenopathy Endocrine : No Polyuria, No Polydipsia, No Temperature Intolerance PMFSH Past Medical History Onset Date is defined in the Problem List Problems that require an onset date and time if occurred within 24 hrs of arrival to the ED Aortic Dissection and Rupture; Neurologic impairment; Cardiopulmonary Arrest; Endotracheal Intubation; Insertion or Replacement of Mechanical Circulatory Assist Device Medical History Depression, major, recurrent Difficulty sleeping Chronic GERD Lipid disorder Alcoholism LFT elevation Surgical History History of esophagogastroduodenoscopy (EGD) Hx of colonoscopy No pertinent past surgical history Family History Family History Father No problems noted. Mother No problems noted. Social History Social History Household Members: None Housing: Apartment Do you presently have visiting nurse or other home services: No Alcohol intake: current Alcohol intake frequency: 3 or more drinks per day Patient Tobacco Use Status: Current everyday Tobacco user Cigarette Packs Per Day: 2 Smoked in Last 30 Days: Yes e-Cigarette/Vaping Use: Never Used Use of substances other than those prescribed or required for medical reasons: No Advance Directives: No Advance Directives Information Provided: No service: No Current occupational status: retired Cognitive needs: No Hearing needs: No Vision needs: Yes Physical Exam ED Vital Signs: Vital Signs - 24 hr 11/03/23 03:05 Temperature 97.7 F Pulse Rate 79 Respiratory Rate 20 Blood Pressure 122/73 Pulse Oximetry 97 Oxygen Delivery Method Room Air BMI result Body Mass Index 21.5 Const Other: Appearance: Alert. Oriented X3. No acute distress. Eyes: Pupils equal, round and reactive to light. ENT: Pharynx normal. Neck: Normal inspection. Neck supple. No lymph nodes noted. No crepitus CVS: Normal heart rate and rhythm. Pulses normal. Normal S1 and S2 Respiratory: No respiratory distress. Breath sounds normal. No Wheezing. No rales Abdomen: Soft and nontender. No rigidity. No distention. Skin: Skin warm and dry. Normal skin color. Normal skin turgor. Extremities: No lower extremity edema. No Lacerations. No Rash bilateral lower extremities are warm, well perfused, palpable pedal pulses bilaterally , no pain to palpation over calves, no swelling, no discoloration Neuro: Oriented X 3. No motor deficit. No sensory deficit. Moving all extremities. No slurred speech. CN 2 through 12 grossly intact Psych: calm, cooperative, normal affect Medical Decision Making Medical Decision Making MDM Narrative: -patient's legs are well perfused, normal color, warm bilaterally. Arterial thrombus not suspected. -patient has no swelling, no pain in lower extremities, no discoloration, DVT not suspected bilaterally -patient complaining of chronic lower extremity pain for 1 week. Discussed with the patient that smoking is actually worsening his condition. Patient has no interest in stopped smoking at this time. I discussed with the patient that he would benefit from an outpatient consult with Dr. Oliva so he can order specific lab work and workup for the patient -patient came in also for EtOH, patient is alert and oriented x3, ambulatory, coherent, no SI or HI Differential Diagnosis Differential Diagnoses: The differential diagnosis associated with the presentation includes (Claudication, chronic venous stasis, Buerger's disease, cold agglutinins syndrome) Discharge Plan Discharge Clinical Impression: Alcohol intoxication, Claudication Patient Disposition: Home, Self-Care Instructions: Peripheral Vascular Disease (ED), Alcohol Intoxication (ED) Additional Instructions: Please follow-up with your primary care physician tomorrow. If you have any worsening or new symptoms, please return to the emergency room or call 911 Prescriptions: No Action (DME) nebulizers Misc See Rx Instructions .Route Qty: 1 0RF Rx Instructions: [id number] Nebulizer ComprsrUltra reuse and supplies ipratropium-albuterol 0.5 mg-3 mg(2.5 mg base)/3 mL solution for nebulization 3 ml inhalation TID PRN (Reason: shortness of breath or wheezing) 90 Days Qty: 180 3RF omeprazole 20 mg capsule,delayed release(DR/EC) 20 mg PO BID@0630,1630 90 Days Qty: 180 0RF Spiriva Respimat 1.25 mcg/actuation mist 2 puff inhalation BEDTIME Qty: 4 0RF fluticasone furoate-vilanterol [Breo Ellipta] 100-25 mcg/dose blister with device 1 ea inhalation RDAILY Qty: 60 0RF albuterol sulfate [Ventolin HFA] 90 mcg/actuation HFA aerosol inhaler 1 inh inhalation QID PRN (Reason: shortness of breath or wheezing) Qty: 8.5 1RF Referrals: Armaan Oliva MD [Physician] - 11/05/23 (Claudication)
--- NOTE | 2023-11-03 04:16 | PC.NURSE ---
pt refused vitals prior to d/c, stated he just put 3 coats on he is not taking them back off.
== END 2023-11-03 04:17 | disposition home or self-care (01) ==
PROVIDERS: Emergency Provider Emergency Medicine
DX: F10.220 Alcohol dependence with intoxication, uncomplicated (principal); Y90.9 Presence of alcohol in blood, level not specified; I73.9 Peripheral vascular disease, unspecified; K70.30 Alcoholic cirrhosis of liver without ascites; F17.210 Nicotine dependence, cigarettes, uncomplicated; Z79.899 Other long term (current) drug therapy
CPT/HCPCS: 99282; 99284

== ENCOUNTER 2023-11-19 12:47 | Outpatient (AMB) | payer OTHER, MEDICAID, SELFPAY ==
[2023-11-19 12:58] VITALS: BMI 21.5
--- NOTE | 2023-11-19 12:58 | A.OFFVIS_ITS ---
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 Has Bilateral Rope like VV and states he has cold extremities and cramping. started about 5 to 10 years ago, worsening every year. Accompanied by: Self / Same As Patient Allergies bee pollen [BEE STINGS] Allergy (Unknown, Verified 11/19/23 13:03) HIVES HPI ED referral for Claudication HPI Details 58-year-old gentleman who actually prese nted to the emergency room for some leg discoloration. He did notice some pain and discomfort that has been a chronic issue for him. He actually presented to alcohol intoxication that brought him to the emergency room. Upon discussion with him he seems to be doing somewhat better. He has no repeat episodes of discoloration of the lower extremities. He reports that he does drink at least 424 oz beers a day. In addition he smokes between a half a pack to a pack daily. He is quite anxious and now presents for follow-up. [facility] Medical History Depression, major, recurrent Difficulty sleeping Chronic GERD Lipid disorder Alcoholism LFT elevation Surgical History History of esophagogastroduodenoscopy (EGD) Hx of colonoscopy No pertinent past surgical history Family History Father No problems noted. Mother No problems noted. Social History Household Members: None Housing: Apartment Do you presently have visiting nurse or other home services: No Alcohol intake: current Alcohol intake frequency: 3 or more drinks per day Patient Tobacco Use Status: Current everyday Tobacco user Cigarette Packs Per Day: 2 e-Cigarette/Vaping Use: Never Used service: No Current occupational status: retired Cognitive needs: No Hearing needs: No Vision needs: Yes Review of Systems Const All systems reviewed & are unremarkable except as noted in HPI and below Reports no additional complaints ENT Reports Normal hearing present Card Denies chest pain, Denies chest pain at rest, Denies chest pain with activity and Denies pedal edema Resp Denies cough GI Denies abdominal pain Musc Denies abnormal gait, Denies muscle cramps and Denies radiating pain into limb Skin/Breast Denies skin ulcer and Denies wounds Neuro Reports Normal hearing present and Denies abnormal gait Psych Reports no additional complaints Physical Exam Vital Signs: BMI result Body Mass Index 21.5 Const General: cooperative, healthy appearing and comfortable Orientation/consciousness: oriented to person, oriented to place and oriented to time HEENT Head: Yes normal to inspection Neck Neck: Yes normal visual inspection Carotids: no bruits Chest Chest palpation & inspection: normal inspection of the chest Resp Effort & Inspection: normal respiratory effort and able to speak in complete sentences Auscultation: clear to auscultation bilaterally, no crackles, no rales, no rhonchi and no wheezes Cardio Other: Palpable DP bilaterally Rate: regular rate Rhythm: regular rhythm Heart sounds: S1 normal heart sound present and S2 normal heart sound present Bruits: no carotid bruits Peripheral pulses: Peripheral pulses 2+ throughout GI Inspection: Yes normal to inspection Skin Wounds: no wounds Hair: normal Neuro General: oriented to person, oriented to place and oriented to time Cranial nerves: Yes CN's II-XII intact bilaterally and Yes Normal hearing present Cognition (Neuro): normal cognition Motor exam (neuro): 5/5 motor strength present throughout Extrem Other: venous exam: +1 edema, large varicosities bilateral calfs greater than 4 mm. Right greater than left General: No clubbing, No cyanosis and Yes edema Psych Appearance: grossly normal Mental Status: mental status grossly normal Speech and movement: Normal speech and movement present Assessment & Plan Assessment & Plan (1) Varicose veins of right lower extremity with inflammation: Code(s): I83.11 - Varicose veins of right lower extremity with inflammation Plan: Unclear etiology of lower extremity discomfort. I do believe that he may have an element of neuropathy secondary to his alcoholism. In addition does have palpable arterial pulses. I did take the liberty of ordering venous insufficiency testing to rule that out. He will follow up with us after testing. Thank you for allowing us to assist in his care. If there are any questions or concerns please do not hesitate to contact us. Orders: Orders US venous insuf bilat 1 Week I83.11 - Varicose veins of right lower extremity with inflammation Coding Level of Care Code New Pt Level 4 (07286) Diagnoses Varicose veins of right lower extremity with inflammation I83.11
== END 2023-11-19 13:22 | disposition home or self-care (01) ==
PROVIDERS: Visit Provider Surgery Vascular Surgery
DX: I83.11 Varicose veins of right lower extremity with inflammation (principal)
CPT/HCPCS: 99203; 99213

== ENCOUNTER → 2023-11-19 12:47 | Outpatient (BNVA) | payer OTHER, MEDICAID, SELFPAY | PROVIDERS: Visit Provider Surgery Vascular Surgery | DX: I83.11 Varicose veins of right lower extremity with inflammation (principal) | CPT/HCPCS: 99202 ==

== ENCOUNTER 2023-11-27 12:34 | Outpatient (REF) | payer OTHER, MEDICAID, SELFPAY ==
--- NOTE | ~2023-11-27 | US_ITS ---
EXAMINATION: US LOWER EXTREMITY VENOUS (REFLUX EXAM), BILATERAL CLINICAL INDICATION: Varicose veins of the right lower extremity COMPARISON: None. TECHNIQUE: Color flow triplex imaging and compression Doppler was performed to evaluate both the deep and the superficial systems bilaterally. To evaluate the superficial system, the examination was performed in the upright position. Color-flow Doppler ultrasound and compression ultrasound were utilized. In addition, maneuvers were utilized to demonstrate reflux. FINDINGS: 1. DEEP VENOUS ULTRASOUND OF THE RIGHT LOWER EXTREMITY: Common Femoral Vein: Compressible, normal respiratory variation and augmented flow. Femoral Vein: Compressible, normal color flow and augmentation. Popliteal Vein: Compressible, normal augmentation. Deep Reflux: There is no evidence of reflux in the deep system in either the common femoral vein or the popliteal vein. There is no evidence of a Grimaldo's cyst. 2. SUPERFICIAL ULTRASOUND WITH DOPPLER OF RIGHT LOWER EXTREMITY: GREAT SAPHENOUS VEIN: Saphenofemoral Junction: 0.7 cm; Reflux: 0 ms Proximal Thigh: 0.4 cm; Reflux: 0 ms Mid Thigh: 0.4 cm; Reflux: 1744 ms Above Knee: 0.4 cm; Reflux: Greater than 2536 ms At Knee: 0.3 cm; Reflux: 0 ms Below Knee: 0.3 cm; Reflux: 1936 ms Mid Calf: 0.3 cm; Reflux: Greater than 2224 ms Ankle: 0.4 cm; Reflux: 2352 ms DUPLICATED MEDIAL GREAT SAPHENOUS VEIN: Diameter: None Imaged Reflux: NA DUPLICATED LATERAL GREAT SAPHENOUS VEIN: Diameter: 0.2 cm at the SFJ, and 0.1 cm in the mid thigh Reflux: 0 ms SMALL SAPHENOUS VEIN: Proximal: 0.3 cm; Reflux: 0 ms Distal: 0.3 cm; Reflux: 0 ms VEIN OF GIACOMINI: None Imaged. PERFORATORS: Location: None Imaged Size: NA Reflux: NA VARICOSITIES: Location: Right GSV mid thigh Size: 0.3 cm Reflux: 0 ms Location: Right GSV at knee Size: 0.3 cm Reflux: 0 ms Location: Right GSV mid calf Size: 0.3 cm Reflux: 0 ms 3. DEEP VENOUS ULTRASOUND OF THE LEFT LOWER EXTREMITY: Common Femoral Vein: Compressible, normal respiratory variation and augmented flow. Femoral Vein: Compressible, normal color flow and augmentation. Popliteal Vein: Compressible, normal augmentation. Deep Reflux: 2304 ms of reflux in the left popliteal vein There is no evidence of a Grimaldo's cyst. 4. SUPERFICIAL ULTRASOUND WITH DOPPLER OF LEFT LOWER EXTREMITY: GREAT SAPHENOUS VEIN: Saphenofemoral Junction: 0.6 cm; Reflux: 0 ms Proximal Thigh: 0.4 cm; Reflux: 0 ms Mid Thigh: 0.6 cm; Reflux: 2284 ms Above Knee: 0.5 cm; Reflux: > 2268 ms At Knee: 0.5 cm; Reflux: > 2612 ms Below Knee: 0.4 cm; Reflux: > 2232 ms Mid Calf: 0.3 cm; Reflux: 0 ms Ankle: 0.4 cm; Reflux: 0 ms DUPLICATED MEDIAL GREAT SAPHENOUS VEIN: Diameter: None Imaged Reflux: NA DUPLICATED LATERAL GREAT SAPHENOUS VEIN: Diameter: 0.2 cm Reflux: 0 ms SMALL SAPHENOUS VEIN: Proximal: 0.3 cm; Reflux: 0 ms Distal: 0.2 cm; Reflux: 0 ms VEIN OF GIACOMINI: None Imaged. PERFORATORS: Location: Left GSV mid thigh Size: 0.2 cm Reflux: 0 ms Location: Left GSV proximal calf Size: 0.2 cm Reflux: > 2628 ms Location: Left GSV distal calf Size: 0.1 cm Reflux: 0 ms VARICOSITIES: Location: Left GSV mid thigh Size: 0.6 cm Reflux: > 2836 ms Location: Left GSV at knee Size: 0.3 cm Reflux: 0 ms Location: Left GSV proximal calf Size: 0.3 cm Reflux: 0 ms Location: Left GSV proximal calf Size: 0.4 cm Reflux: > 2476 ms Location: Left GSV mid calf Size: 0.5 cm Reflux: 2148 ms US/US venous insuf bilat IMPRESSION: 1. Right: The GSV measure up to 0.7 cm with reflux from the above knee segment to the ankle, > 2536 ms. 2. Left: The GSV measures up to 0.6 cm with reflux from the mid-thigh to the below knee segment up >2612 ms. 3. There are bilateral varicosities with reflux. 4. There is reflux in the left popliteal vein.
== END 2023-11-27 12:35 | disposition home or self-care (01) ==
LOC: HO.US 12:34
PROVIDERS: PCP Internal Medicine; Visit Provider Surgery Vascular Surgery
DX: I83.11 Varicose veins of right lower extremity with inflammation (principal)
CPT/HCPCS: 93970

== ENCOUNTER 2023-12-15 14:48 | Outpatient (AMB) | payer OTHER, MEDICAID, SELFPAY ==
[2023-12-15 14:55] VITALS: BP 128/76; PULSE 104; O2SAT 96; BMI 21.7
--- NOTE | 2023-12-15 14:55 | MHC.PC.OV ---
Vital Signs 12/15/23 14:55 Height 5 ft 10 in Weight 151 lb 6 oz BMI 21.7 BP 128/76 Blood Pressure Location Rt brachial Position Sitting Pulse 104 H Pulse Source Pulse Oximeter Pulse Oximetry (%) 96 Oxygen Delivery Method Room Air Intake Visit Reasons: 3 month follow up Allergies bee pollen [BEE STINGS] Allergy (Unknown, Verified 12/15/23 14:57) HIVES Medication List - Last Reconciled 12/15/23 by Yoseph Syed MD albuterol sulfate 90 mcg/actuation (Ventolin HFA) 1 inh inhalation QID PRN fluticasone furoate-vilanterol 100-25 mcg/dose (Breo Ellipta) 1 ea inhalation RDAILY ipratropium-albuterol 0.5 mg-3 mg(2.5 mg base)/3 mL 3 mL inhalation TID PRN 90 days nebulizers [id number] Nebulizer ComprsrUltra reuse and supplies omeprazole 20 mg PO BID@0630,1630 90 days tiotropium bromide 1.25 mcg/actuation (Spiriva Respimat) 2 puffs inhalation BEDTIME Tobacco use date assessed: 12/15/23 Dental Screening Dental Screen Date: 12/15/23 Did you have a dental visit in the last 12 months?: No Did you have a dental problem in the last 6 months where you did not have access to dental care?: No Was dental information given to patient?: Patient has dentist HPI 3 month follow up HPI Details Patient is 58-year-old gentleman came in today for his appointment Patient is in his usual state of health Trying to cut down on drinking Patient is a smoker and have a COPD Patient have a history of liver cirrhosis without ascites. 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 GERD is stable with omeprazole Labs are due before next visit in 4 months [facility] Medical History Depression, major, recurrent Difficulty sleeping Chronic GERD Lipid disorder Alcoholism LFT elevation Surgical History History of esophagogastroduodenoscopy (EGD) Hx of colonoscopy No pertinent past surgical history Family History Father No problems noted. Mother No problems noted. Social History Household Members: None Housing: Apartment Do you presently have visiting nurse or other home services: No Alcohol intake: current Alcohol intake frequency: 3 or more drinks per day Patient Tobacco Use Status: Current everyday Tobacco user Cigarette Packs Per Day: 2 e-Cigarette/Vaping Use: Never Used service: No Current occupational status: retired Cognitive needs: No Hearing needs: No Vision needs: Yes Questionnaire Thrive Questionnaire Date Thrive assessed: 05/06/23 AUDIT C Alcohol Use Questionnaire (AUDIT-C) 1. How often do you have a drink containing alcohol?: 2-3 times a week 2. How many drinks containing alcohol do you have on a typical day when you are drinking?: 5 or 6 3. How often do you have six or more drinks on one occasion?: Daily or almost daily Total Score: 9 Score Reviewed/Action Taken: Yes MARTIN-7 AMB Questionnaire MARTIN-7 Date MARTIN - 7 assessed: 02/04/23 Source: Developed by Drs. Ba Harris, Cindy Gerardo, Darien Siddiqui and colleagues, with an educational avelino from [email or web address]. Review of Systems Const Denies chills and Denies fever(s) ENT Denies epistaxis and Denies nasal discharge Card Denies chest pain Resp Denies chest congestion, Denies cough and Denies hemoptysis GI Denies diarrhea and Denies nausea Skin/Breast Denies rash Neuro Reports no additional complaints Psych Reports no additional complaints Endo Reports no additional complaints Physical exam (Primary Care) Vital Signs: Last Vital Signs Pulse 104 H 12/15/23 14:55 BP 128/76 12/15/23 14:55 Pulse Ox 96 12/15/23 14:55 Oxygen Delivery Method Room Air 12/15/23 14:55 BMI result Body Mass Index 21.7 Tobacco/Smoking Status: Tobacco use Status Tobacco use date assessed 12/15/23 12/15/23 14:58 Patient Tobacco Use Status Current everyday Tobacco 12/15/23 14:58 e-Cigarette/Vaping Use Never Used 12/15/23 14:58 Thrive Assessment: Date of Thrive Assessment Date Thrive assessed 05/06/23 12/15/23 14:58 Const General: cooperative, comfortable and no acute distress Orientation/consciousness: patient oriented x3 HENMT Head: Yes normocephalic Eyes General: appearance normal, both eyes and all related structures Neck Neck: Yes supple Resp Effort & Inspection: normal respiratory effort, no cough and no stridor Cardio Rhythm: regular rhythm Heart sounds: S1 normal heart sound present and S2 normal heart sound present Skin General skin exam: turgor normal Neuro General: patient oriented x3, tone normal and moves all extremities Extrem Right lower extremity: no edema Left lower extremity: no edema Assessment and Plan Assessment & Plan (1) COPD (chronic obstructive pulmonary disease): Code(s): J44.9 - Chronic obstructive pulmonary disease, unspecified Qualifiers: COPD type: emphysema Emphysema type: panlobular Qualified Code(s): J43.1 - Panlobular emphysema (2) Liver cirrhosis, alcoholic: Code(s): K70.30 - Alcoholic cirrhosis of liver without ascites Qualifiers: Ascites presence: without ascites Qualified Code(s): K70.30 - Alcoholic cirrhosis of liver without ascites (3) Depression, major, recurrent: Code(s): F33.9 - Major depressive disorder, recurrent, unspecified Qualifiers: Active/Remission status: in partial remission Qualified Code(s): F33.41 - Major depressive disorder, recurrent, in partial remission (4) Difficulty sleeping: Code(s): G47.9 - Sleep disorder, unspecified (5) Chronic GERD: Code(s): K21.9 - Gastro-esophageal reflux disease without esophagitis (6) Lipid disorder: Code(s): E78.9 - Disorder of lipoprotein metabolism, unspecified (7) Alcoholism: Comment: CONSEQUENCES OF DRINKING PROBLEMS There are a number of serious consequences of drinking alcohol excessively -------Excessive alcohol consumption is a leading preventable cause of in the [place]. --------Drinking alcohol increases the risk of traffic accidents, suicide, drowning, and other serious injuries. -------Alcohol use continues to be the leading cause of injuries treated in trauma centers and emergency departments . --------Alcohol-related liver disease may lead to end-stage liver disease (cirrhosis) and . --------Alcohol increases the risk of certain cancers of the mouth, esophagus, throat, liver, and breast. Code(s): F10.20 - Alcohol dependence, uncomplicated (8) LFT elevation: Code(s): R79.89 - Other specified abnormal findings of blood chemistry (9) Distal paresthesia: Code(s): R20.2 - Paresthesia of skin (10) Alcoholic peripheral neuropathy: Code(s): G62.1 - Alcoholic polyneuropathy (11) Tobacco dependence: Code(s): F17.200 - Nicotine dependence, unspecified, uncomplicated Plan Patient is 58-year-old gentleman came in today for his appointment Patient is in his usual state of health Trying to cut down on drinking Patient is a smoker and have a COPD Patient have a history of liver cirrhosis without ascites. 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 GERD is stable with omeprazole Labs are due before next visit in 4 months Orders: Orders LDL Cholesterol Direct Today F33.9 - Major depressive disorder, recurrent, unspecified, G62.1 - Alcoholic polyneuropathy, J44.9 - Chronic obstructive pulmonary disease, unspecified, K70.30 - Alcoholic cirrhosis of liver without ascites Vitamin D 25-OH (D2 and D3) Today F33.9 - Major depressive disorder, recurrent, unspecified, G62.1 - Alcoholic polyneuropathy, J44.9 - Chronic obstructive pulmonary disease, unspecified, K70.30 - Alcoholic cirrhosis of liver without ascites Complete Blood Count Auto Diff Today F33.9 - Major depressive disorder, recurrent, unspecified, G62.1 - Alcoholic polyneuropathy, J44.9 - Chronic obstructive pulmonary disease, unspecified, K70.30 - Alcoholic cirrhosis of liver without ascites Comprehensive Met. Panel Today F33.9 - Major depressive disorder, recurrent, unspecified, G62.1 - Alcoholic polyneuropathy, J44.9 - Chronic obstructive pulmonary disease, unspecified, K70.30 - Alcoholic cirrhosis of liver without ascites TSH reflex Free T4 Today F33.9 - Major depressive disorder, recurrent, unspecified, G62.1 - Alcoholic polyneuropathy, J44.9 - Chronic obstructive pulmonary disease, unspecified, K70.30 - Alcoholic cirrhosis of liver without ascites Medications: New cholecalciferol (vitamin D3) 25 mcg PO DAILY 90 caps 1RF 90 days Refilled ipratropium-albuterol 0.5 mg-3 mg(2.5 mg base)/3 mL 3 mL inhalation TID PRN 180 mL 3RF shortness of breath or wheezing 90 days J44.1 - Chronic obstructive pulmonary disease with (acute) exacerbation fluticasone furoate-vilanterol 100-25 mcg/dose (Breo Ellipta) 1 ea inhalation RDAILY 60 ea 0RF tiotropium bromide 1.25 mcg/actuation (Spiriva Respimat) 2 puffs inhalation BEDTIME 4 grams 3RF Coding Level of Care Code Est Pt Level 4 (18705) Diagnoses Panlobular emphysema J43.1 COPD type: emphysema Emphysema type: panlobular Alcoholic cirrhosis of liver without ascites K70.30 Ascites presence: without ascites Recurrent major depressive disorder, in partial remission F33.41 Active/Remission status: in partial remission Difficulty sleeping G47.9 Chronic GERD K21.9 Lipid disorder E78.9 Alcoholism F10.20 LFT elevation R79.89 Distal paresthesia R20.2 Alcoholic peripheral neuropathy G62.1 Tobacco dependence F17.200
== END 2023-12-15 15:13 | disposition home or self-care (01) ==
PROVIDERS: PCP Internal Medicine; Visit Provider Internal Medicine
DX: J43.1 Panlobular emphysema (principal); K70.30 Alcoholic cirrhosis of liver without ascites; F33.41 Major depressive disorder, recurrent, in partial remission; F10.20 Alcohol dependence, uncomplicated; G62.1 Alcoholic polyneuropathy; G47.9 Sleep disorder, unspecified; K21.9 Gastro-esophageal reflux disease without esophagitis; E78.9 Disorder of lipoprotein metabolism, unspecified; R79.89 Other specified abnormal findings of blood chemistry; R20.2 Paresthesia of skin; F17.210 Nicotine dependence, cigarettes, uncomplicated
CPT/HCPCS: 99214

== ENCOUNTER 2024-02-12 13:21 | Emergency (ER) | payer OTHER, MEDICAID, SELFPAY ==
--- NOTE | 2024-02-12 13:24 | MHC.CARE ---
CARE Team received a call from [facility] anitha- [place] [employer] called crisis to assist with Pt. [facility] was not able to complete crisis eval due to Pt appearing to be intoxicated and wasnt clinically appropriate. Per [facility] Pt was found outside of an apartment where they round and Pt was making SI statements.
[2024-02-12 13:34] VITALS: BP 128/96; BP 158/100; PULSE 94; PULSE 95; RESP 16; TEMP 36.2; O2SAT 95; O2SAT 98; BMI 23.6
--- NOTE | 2024-02-12 13:36 | ED_ITS ---
HPI - General Adult General Chief complaint: Psychiatric Symptoms Stated complaint: SECTION 12 Time Seen by Provider: 02/12/24 13:35 Source: patient and EMS Mode of arrival: EMS Limitations: no limitations History of Present Illness HPI narrative: Patient is a 58 year old assigned male at with a history of COPD and alcoholism presenting to the emergency department today with suicidal ideation. Patient states that he has been drinking a lot lately and feels suicidal with a plan to overdose or shoot himself. Patient denies any dizziness, lightheadedness, abdominal pain, nausea, vomiting, fever, chills, blurry vision, double vision, loss of vision, chest pain, difficulty breathing, shortness of breath, back pain, night sweats, pain with urination, increased urinary frequency, increased urinary urgency, blood in his urine or stool, syncope or a near syncopal episode, recent trauma or falls, bowel incontinence, bladder incontinence, bowel retention, bladder retention, or any other complaints at this time. Relieving factors: none Exacerbating factors: none Associated symptoms: denies other symptoms Treatments prior to arrival: none Related Data Home Medications ?Medication ?Instructions ?Recorded ?Confirmed fluticasone furoate 100 1 ea inhalation DAILY 02/12/24 02/12/24 mcg-vilanterol 25 mcg/dose inhalation powder (Breo Ellipta) omeprazole 20 mg capsule,delayed 20 mg PO BID 02/12/24 02/12/24 release Allergies Allergy/AdvReac Type Severity Reaction Status Date / Time bee pollen [BEE STINGS] Allergy Unknown HIVES Verified 12/15/23 14:57 poison tara extract Allergy Hives Verified 02/12/24 13:38 Review of Systems 2 Constitutional: Constitutional: Reports no additional constitutional complaints, Denies chills, Denies fever(s) and Denies night sweats Eyes: Eyes: Reports no additional eye complaints, Denies blurry vision, Denies change in vision, Denies diplopia, Denies eye discharge, Denies loss of vision and Denies eye pain ENT: Denies dizziness Cardiovascular: Cardiovascular: Reports no additional cardiovascular complaints, Denies chest pain, Denies lightheadedness, Denies Loss of Consciousness and Denies dyspnea Respiratory: Respiratory: Reports no additional respiratory complaints and Denies dyspnea Gastrointestinal: Gastrointestinal: Reports no additional gastrointestinal complaints, Denies abdominal pain, Denies melena, Denies hematochezia, Denies change in bowel habits and Denies change in stool character Genitourinary: Genitourinary: Reports no additional male genitourinary complaints, Denies hematuria, Denies oliguria, Denies difficulty urinating, Denies dysuria, Denies urinary frequency, Denies urinary hesitancy, Denies urinary incontinence and Denies urinary urgency Musculoskeletal: Musculoskeletal: Reports no additional musculoskeletal complaints, Denies numbness and Denies tingling Neurologic: Denies dizziness, Denies loss of vision, Denies numbness and Denies tingling Psychiatric: Psychiatric: Denies homicidal ideation and Reports suicidal ideation Endocrine: Endocrine: Reports no additional endocrine complaints Hematologic/Lymphatic: Hematologic/Lymphatic: Reports no additional hematologic/lymphatic complaints Allergic/Immunologic: Allergic/Immunologic: Reports no additional allergic/immunologic complaints [facility] Past Medical History Attestation statement: The following information was validated with the patient. Source: old records reviewed and nursing notes reviewed Medical History Depression, major, recurrent Difficulty sleeping Chronic GERD Lipid disorder Alcoholism LFT elevation Surgical History History of esophagogastroduodenoscopy (EGD) Hx of colonoscopy No pertinent past surgical history Family History Family History Father No problems noted. Mother No problems noted. Social History Social History Household Members: None Housing: Apartment Do you presently have visiting nurse or other home services: No Alcohol intake: current Alcohol intake frequency: 3 or more drinks per day Alcohol type: beer Patient Tobacco Use Status: Current everyday Tobacco user Cigarette Packs Per Day: 2 Smoked in Last 30 Days: Yes e-Cigarette/Vaping Use: Never Used Use of substances other than those prescribed or required for medical reasons: No Advance Directives: No Advance Directives Information Provided: No service: No Current occupational status: retired Cognitive needs: No Hearing needs: No Vision needs: Yes Physical Exam ED Vital Signs: Vital Signs - 24 hr 02/12/24 13:34 02/12/24 13:44 02/12/24 15:21 Temperature 97.1 F Pulse Rate 95 72 Respiratory Rate 16 16 16 Blood Pressure 128/96 H Pulse Oximetry 95 96 Oxygen Delivery Method Room Air Room Air 02/12/24 23:45 Temperature 97.9 F Pulse Rate 90 Respiratory Rate 14 Blood Pressure 126/83 Pulse Oximetry 94 Oxygen Delivery Method Room Air BMI result Body Mass Index 23.6 Const General: cooperative, no acute distress, alert and awake Nutritional Appearance: well nourished Orientation/consciousness: patient oriented x3 Limitations: no limitations HENMT Head: Yes normal to inspection and Yes atraumatic Ears: hearing grossly normal bilaterally and external ears normal General nose exam: Normal external nose present, no nasal discharge noted and no epistaxis Face and sinus: Yes normal facial exam, No abrasion and No laceration Mouth: Normal oral and palatal mucosa present, no drooling and no muffled voice Eyes General: appearance normal, both eyes and all related structures Periorbital: periorbital findings normal Eyelids: Yes eyelids normal Conjunctivae: conjunctivae normal Pupils: Equal, round and reactive pupils present EOM: EOMs intact bilaterally Neck Neck: Yes normal visual inspection, Yes full ROM and Yes no lymphadenopathy Chest Chest palpation & inspection: normal inspection of the chest Resp Effort & Inspection: normal respiratory effort and able to speak in complete sentences GI Inspection: Yes normal to inspection Neuro General: patient oriented x3 and moves all extremities Cranial nerves: Yes Equal, round and reactive pupils present Cognition (Neuro): normal cognition Motor exam (neuro): 5/5 motor strength present throughout Sensory Exam: Normal double simultaneous stimulation for sensation Coordination: [id number] test normal Extrem General: Yes normal to inspection, Yes full ROM and Yes capillary refill normal Psych Appearance: grossly normal Mental Status: mental status grossly normal Attitude: Belligerent attititude/behavior present Thought content: Suicidality present Medications Administered Discontinued Medications Generic Name Dose Route Start Last Admin Trade Name Freq PRN Reason Stop Dose Admin Lorazepam 2 mg 02/12/24 14:30 02/12/24 15:32 Lorazepam 1 Mg Tablet PO 02/12/24 14:31 Not Given ONCE ONE Lorazepam 2 mg 02/12/24 16:10 02/12/24 16:18 Lorazepam 1 Mg Tablet PO 02/12/24 16:11 2 mg ONCE ONE Administration Medical Decision Making Medical Decision Making MDM Narrative: Patient is a 58 year old assigned male at with a history of alcohol abuse presenting to the emergency department today with suicidal ideation and alcohol use. Patient's physical exam was as noted in the physical exam portion of this note. Patient's blood work was largely unremarkable with the exception of an ethyl alcohol level of 357. I explained my physical exam findings as well as all test results to the patient. I answered all questions asked by the patient. Patient is awaiting CARE team evaluation. Patient's disposition will be determined after CARE team evaluation. Physician observation started at 1414. 00:18: Patient was evaluated by the care team, patient is on a Section 12, inpatient bed search, patient is actively suicidal, plan of jumping off a bridge, and has history of suicide attempts Differential Diagnosis Differential Diagnoses: The differential diagnosis associated with the presentation includes Suicidal ideation Alcohol abuse Alcohol use Admission/Observation Consideration of admission/observation: Escalation of care including admission/observation considered Disposition will be determined after CARE team evaluation. Lab Data [facility] Lab Attestation statement: I reviewed the patient's lab results. My interpretation of these results are in the [facility] Rationale portion of this note. 02/12/24 13:55 02/12/24 13:55 Labs: Lab Results 02/12/24 Range/Units 13:55 WBC 7.7 (4.8-10.8) X10*3/uL RBC 5.45 (4.60-5.80) X10*6/uL Hgb 16.7 (14.0-18.0) g/dl Hct 48.1 (42.0-52.0) % MCV 88.3 (80.0-98.0) fL MCH 30.6 (27.0-33.0) pg MCHC 34.7 (31.0-36.0) g/dl RDW 13.5 (11.0-16.0) % Plt Count 191 (160-400) X10*3/uL MPV 9.7 (9.4-12.4) fL Immature Gran % (Auto) 0.1 (0.0-0.4) % Neut % (Auto) 46.5 (45-73) % Lymph % (Auto) 34.6 (20-40) % [place] % (Auto) 11.0 (2-11) % Eos % (Auto) 6.8 H (0-4) % Baso % (Auto) 1.0 (0-2) % Lymph # (Auto) 2.7 (1.2-4.9) X10*3/uL [place] # (Auto) 0.8 (0.1-1.2) X10*3/uL Eos # (Auto) 0.5 H (0.0-0.4) X10*3/uL Baso # (Auto) 0.1 (0.0-0.2) X10*3/uL Abs Immat Gran (auto) 0.01 (0.00-0.03) X10*3/uL Absolute Neuts (auto) 3.6 (2.0-8.3) x10*3/uL Absolute Nucleated RBC 0.000 (0.0-0.012) X10*3/uL Nucleated RBC % (auto) 0.0 (0.0-0.2) /100WBC Sodium 138 (135-145) mmol/L Potassium 3.9 (3.3-5.1) mmol/L Chloride 105 (96-108) mmol/L Carbon Dioxide 22 (22-29) mmol/L Anion Gap 15 (12-20) BUN 6 L (9-16) mg/dL Creatinine 0.74 (0.5-1.4) mg/dL Estim Creat Clear Calc 106.1 Estimated GFR > 60 Random Glucose 118 H (60-115) mg/dL Calcium 9.4 (8.4-10.2) mg/dL Total Bilirubin 0.3 (0.0-1.0) mg/dL AST 120 H (5-37) U/L ALT 113 H (0-40) U/L Alkaline Phosphatase 80 (39-117) U/L Total Protein 7.6 (6.5-8.0) g/dL Albumin 4.4 (3.5-5.0) g/dL Urine Color Yellow Urine Appearance Clear Urine pH 5.5 (5.0-9.0) Ur Specific [place] <= 1.005 (1.005-1.025) Urine Protein Negative (Neg-Trace) mg/dL Urine Glucose (UA) Negative (Negative) mg/dL Urine Ketones Negative (Negative) mg/dL Urine Blood Negative (Negative) Urine Nitrite Negative (Negative) Ur Leukocyte Esterase Negative (Negative) Urine Opiates Screen Not Detected (Not Detect) Ur Buprenorphine Scrn Not Detected (Not Detect) ng/mL Ur Oxycodone Screen Not Detected (Not Detect) ng/mL Urine Methadone Screen Not Detected (Not Detect) ng/mL Urine Fentanyl Screen Not Detected (Not Detect) Ur Barbiturates Screen Not Detected (Not Detect) Ur Phencyclidine Scrn Not Detected (Not Detect) Ur Amphetamines Screen Not Detected (Not Detect) U Benzodiazepines Scrn Not Detected (Not Detect) Urine Cocaine Screen Not Detected (Not Detect) U Marijuana (THC) Screen Not Detected (Not Detect) Ethyl Alcohol 357 H* mg/dL Independent Historian Clinical information obtained from an independent historian. History obtained from or confirmed by: EMS (EMS provided additional history and confirmed the history provided by the patient.) Critical Care Time Critical Care Time Critical Care Time: Yes Total Critical Care Time: 68 Attestation: I spent 68 minutes of Critical Care Time with this patient. This does not include time spent on separately reported billable procedures. Discharge Plan Discharge Clinical Impression: Suicidal ideation, Alcohol intoxication Patient Disposition: Still a Patient Prescriptions: No Action fluticasone furoate-vilanterol [Breo Ellipta] 100-25 mcg/dose blister with device 1 ea inhalation DAILY omeprazole 20 mg capsule,delayed release(DR/EC) 20 mg PO BID Interventions: [place]-Suicide Risk Severity Scale Last Done: 02/12/24 13:40 Print Language: Peruvian
[2024-02-12 13:44] VITALS: RESP 16
[2024-02-12 14:04] LABS: MANUAL DIFF FLAG NO
[2024-02-12 14:06] LABS: Basophils Absolute Auto 0.1 X10*3/uL (0.0-0.2); Eosinophils Absolute Auto 0.5 X10*3/uL (0.0-0.4); Eosinophils Percent Auto 6.8 % (0-4); Hematocrit 48.1 % (42.0-52.0); Hemoglobin 16.7 g/dl (14.0-18.0); Imm Gran Abs Auto 0.01 X10*3/uL (0.00-0.03); Imm Gran Pct Auto 0.1 % (0.0-0.4); Lymphocytes Absolute Auto 2.7 X10*3/uL (1.2-4.9); Lymphocytes Percent Auto 34.6 % (20-40); Mean Corpuscular HGB Conc 34.7 g/dl (31.0-36.0); Mean Corpuscular Hemoglobin 30.6 pg (27.0-33.0); Mean Corpuscular Volume 88.3 fL (80.0-98.0); Mean Platelet Volume 9.7 fL (9.4-12.4); Monocytes Absolute Auto 0.8 X10*3/uL (0.1-1.2); Neutrophils Absolute Auto 3.6 x10*3/uL (2.0-8.3); Neutrophils Percent Auto 46.5 % (45-73); Platelet Count 191 X10*3/uL (160-400); Red Blood Count 5.45 X10*6/uL (4.60-5.80); Red Cell Distribution Width 13.5 % (11.0-16.0); White Blood Count 7.7 X10*3/uL (4.8-10.8)
[2024-02-12 14:08] LABS: Appearance Urine Clear; Color Urine Yellow; Glucose Urine UA Negative (Negative); Leukocyte Esterase Urine Negative (Negative); Nitrite Urine Negative (Negative); PH 5.5 (5.0-9.0); Specific Gravity - Urine <= 1.005 (1.005-1.025); Urine Blood Negative (Negative); Urine Ketones Negative (Negative); Urine Protein Negative (Neg-Trace)
[2024-02-12 14:19] LABS: Amphetamine Screen Urine Not Detected (Not Detect); Barbiturates, Urine Not Detected (Not Detect); Benzodiazepines Screen Urine Not Detected (Not Detect); Buprenorphine Scr Not Detected (Not Detect); Cannabinoid Screen Urine Not Detected (Not Detect); Cocaine Screen Urine Not Detected (Not Detect); Fentanyl, urine Not Detected (Not Detect); Methadone Screen, Urine Not Detected (Not Detect); Opiate Screen Urine Not Detected (Not Detect); Oxycodone Screen Urine Not Detected (Not Detect); Phencyclidine Screen Urine Not Detected (Not Detect)
[2024-02-12 14:26] LABS: Alanine Aminotransferase 113 U/L (0-40); Albumin Level 4.4 g/dL (3.5-5.0); Alkaline Phosphatase 80 U/L (39-117); Anion Gap 15 (12-20); Aspartate Amino Transferase 120 U/L (5-37); Bilirubin Total 0.3 mg/dL (0.0-1.0); Blood Urea Nitrogen 6 mg/dL (9-16); Calcium 9.4 mg/dL (8.4-10.2); Carbon Dioxide 22 mmol/L (22-29); Chloride 105 mmol/L (96-108); Creatinine Clr Calc Pharmacy 106.1; Estimated Glomerular Filt Rate > 60; Ethanol 357 mg/dL; Glucose Random 118 mg/dL (60-115); Potassium 3.9 mmol/L (3.3-5.1); Sodium 138 mmol/L (135-145); Total Protein 7.6 g/dL (6.5-8.0)
[2024-02-12 15:21] VITALS: PULSE 72; RESP 16; O2SAT 96
--- NOTE | 2024-02-12 15:21 | PC.NURSE ---
patient presents to the ED via ambulance, intoxicated and endorsing SI with plan to overdose or shoot himself. patient is ambulating around BH pod with steady gait, speaking loudly to other patients. Patient is not respecting personal boundaries, has had to be reminded a few times to keep his hands to himself. Patient is otherwise calm and cooperative with care offering no complaints to this RN. Patient was asking this RN to leave, attempting to get his belongings out of the lockers. Patient's brother visited and encouraged patient to stay.
[2024-02-12] MEDS: LORazepam 1 MG TABLET 2 MG PO (16:18)
--- NOTE | 2024-02-12 16:44 | PC.NURSE ---
Patient willingly took ativan PO, now sleeping on bed in BH 3, respirations even and unlabored, no apparent distress at this time
[2024-02-12 23:45] VITALS: BP 126/83; PULSE 90; RESP 14; TEMP 36.6; O2SAT 94
--- NOTE | 2024-02-13 06:44 | PC.NURSE ---
Patient slept through the night, asymptomatic of ETOH withdrawal, CIWA is negative, patient was seen by care team disposition is section-12 inpatient bed search, patient calm, quiet, and pleasant, VSS, no distress observed/reported, will continue to monitor
[2024-02-13 07:21] VITALS: BP 143/80; PULSE 72; RESP 16; TEMP 36.8; O2SAT 97
[2024-02-13 15:29] VITALS: BP 138/90; PULSE 70; RESP 16; TEMP 36.6; O2SAT 98
--- NOTE | 2024-02-13 16:38 | PHA.MEDREC ---
Pharmacy Consult ? Medication Reconciliation Pharmacy has reviewed the medication reconciliation done by nursing.
--- NOTE | 2024-02-13 18:01 | PC.NURSE ---
ASSUMED CARE OF PT AT 1500H, PT APPEARED IN NAD, WAS CONVERSATIONAL, MAKING GOOD EYE CONTACT. DENIED THOUGHTS OF SELF HARM. REMAINS ON SEC 12 INPT BED SEARCH.
[2024-02-13 22:54] VITALS: BP 136/89; PULSE 66; RESP 16; TEMP 36.6; O2SAT 99
--- NOTE | 2024-02-14 05:45 | PC.NURSE ---
Addendum entered by Tal John RN 02/14/24 05:51: Patient struggled to fall sleep due to hospital bed as reported by the patient. Appears sleeping briefly intermittently did not want any medication except cigarettes and be discharged, Patient was made aware that he can talk to care team in the morning during MSU. Original Note: Patient slept through the night, asymptomatic of ETOH withdrawal, CIWA is negative, disposition per care team is section-12 inpatient bed search, VSS, no distress observed/reported, no behavior issues and concerns at this time, appetite adequate, elimination intact, will continue to monitor
--- NOTE | 2024-02-14 06:58 | PC.NURSE ---
Assumed care of patient at 0645. Patient is observed eating breakfast in his room. Not in distress at this time. No behavioral issues to report at this time. Will continue plan of care.
[2024-02-14 08:13] VITALS: BP 151/87; PULSE 89; RESP 16; TEMP 37.1; O2SAT 99
[2024-02-14 09:35] VITALS: BP 151/87; PULSE 89; RESP 16; TEMP 37.1; O2SAT 99
--- NOTE | 2024-02-15 13:25 | MHC.CARE ---
Pt has been referred to the [facility] for a Finisher Hand
== END 2024-02-14 09:43 | disposition home or self-care (01) ==
PROVIDERS: Physician Assistant Medical; Emergency Provider Student in an Organized Health Care Education/Training Program; PCP Internal Medicine
DX: F10.220 Alcohol dependence with intoxication, uncomplicated (principal); Y90.8 Blood alcohol level of 240 mg/100 ml or more; R45.851 Suicidal ideations; F17.200 Nicotine dependence, unspecified, uncomplicated
CPT/HCPCS: 36415; 80053; 80307; 81003; 85025; 99285; S9485

== ENCOUNTER 2024-03-08 13:14 | Outpatient (AMB) | payer OTHER, SELFPAY ==
--- NOTE | 2024-03-08 13:56 | MHC.OFFVIS ---
Intake Visit Reasons: Follow Up 11/27 [facility] Intake Note: Chet presents for follow up 11/27 [facility]. States he is getting cramps at night . Also legs feel heavy at times as well. Accompanied by: Self / Same As Patient Allergies bee pollen [BEE STINGS] Allergy (Unknown, Verified 12/15/23 14:57) HIVES poison tara extract Allergy (Verified 02/12/24 13:38) Hives [facility] HPI Follow Up 11/27 [facility]: Details: Very pleasant 59-year-old gentleman presents for follow-up regarding venous insufficiency. He reports continued discomfort and swelling left more so than right. He has used compression with minimal relief. He now presents for routine follow-up. [facility] Medical History Depression, major, recurrent Difficulty sleeping Chronic GERD Lipid disorder Alcoholism LFT elevation Surgical History History of esophagogastroduodenoscopy (EGD) Hx of colonoscopy No pertinent past surgical history Family History Father No problems noted. Mother No problems noted. Social History Household Members: None Housing: Apartment Do you presently have visiting nurse or other home services: No Alcohol intake: current Alcohol intake frequency: 3 or more drinks per day Alcohol type: beer Patient Tobacco Use Status: Current everyday Tobacco user Cigarette Packs Per Day: 2 e-Cigarette/Vaping Use: Never Used service: No Current occupational status: retired Cognitive needs: No Hearing needs: No Vision needs: Yes Review of Systems Const Reports as per HPI ENT Reports no additional complaints Card Denies chest pain, Denies chest pain at rest and Denies chest pain with activity Resp Denies chest congestion and Denies cough GI Reports no additional complaints Musc Details: pain over varicosities, aching of lower extremities, swelling, cramping, heaviness and tiredness, itching Denies abnormal gait Skin/Breast Reports pruritus and Denies wounds Neuro Reports no additional complaints and Denies abnormal gait Psych Denies no additional complaints Physical Exam Const General: cooperative, healthy appearing and comfortable Orientation/consciousness: oriented to person, oriented to place and oriented to time Neck Carotids: no bruits Chest Chest palpation & inspection: normal inspection of the chest and normal palpation of entire chest wall Resp Effort & Inspection: normal respiratory effort and able to speak in complete sentences Cardio Rate: regular rate Heart sounds: S1 normal heart sound present and S2 normal heart sound present Peripheral pulses: Peripheral pulses 2+ throughout GI Inspection: Yes normal to inspection Skin Other: +2 edema, large rope-like varicosities greater than 4 mm CEAP Classification C4 - skin color changes Ep - Etiology Primary As - superficial veins P - reflux General skin exam: dry skin Neuro General: oriented to person, oriented to place and oriented to time Extrem Right lower extremity: full ROM, normal capillary refill and edema Left lower extremity: full ROM, normal capillary refill and edema Psych Mental Status: mental status grossly normal Results Reviewed Results Reviewed: Brief summary of venous insufficiency testing is as follows: right great saphenous vein: Positive right small saphenous vein: negative right accessory vein: none present left great saphenous vein: Positive left small saphenous vein: negative left accessory vein: none present Please note there is no evidence of any venous aneurysms or significant tortuosity Assessment & Plan Assessment & Plan (1) Varicose veins of left lower extremity with inflammation: Code(s): I83.12 - Varicose veins of left lower extremity with inflammation Category: Medical Plan: This patient has varicose veins with inflammation. They continue to be a source of discomfort for the patient. The patient has tried conservative treatment with compression, leg elevation and exercise program for over 3 months time. They have been compliant with all treatment. This has provided minimal relief for the patient. I do not anticipate this course of treatment will alter the underlying etiology. The patient has been scheduled for lower extremity venous treatment inclusive of --- left great saphenous vein Cyanoacralate ablation. Risks, benefits, and complications of this procedure has been discussed in detail with the patient including but not limited to bleeding, infection, and the development of a DVT. The patient has demonstrated a clear understanding and has consented. We will schedule the patient as soon as possible. Thank you for allowing us to participate in this patient's care. If there are any questions or concerns please do not hesitate to contact us. Coding Level of Care Code Est Pt Level 4 (06476) Diagnoses Varicose veins of left lower extremity with inflammation I83.12
== END 2024-03-08 14:21 | disposition home or self-care (01) ==
PROVIDERS: PCP Internal Medicine; Visit Provider Surgery Vascular Surgery
DX: I83.12 Varicose veins of left lower extremity with inflammation (principal)
CPT/HCPCS: 99214

== ENCOUNTER → 2024-03-08 13:14 | Outpatient (BNVA) | payer OTHER, SELFPAY | PROVIDERS: PCP Internal Medicine; Visit Provider Surgery Vascular Surgery | DX: I83.12 Varicose veins of left lower extremity with inflammation (principal) | CPT/HCPCS: 99212 ==

== ENCOUNTER 2024-03-25 12:00 | Outpatient (AMB) | payer OTHER, MEDICAID, SELFPAY ==
--- NOTE | 2024-03-25 12:18 | MHC.OFFVIS ---
Intake Visit Reasons: Left GSV Venaseal Accompanied by: Self / Same As Patient Allergies bee pollen [BEE STINGS] Allergy (Unknown, Verified 03/25/24 12:18) HIVES poison tara extract Allergy (Verified 03/25/24 12:18) Hives [facility] Medical History Depression, major, recurrent Difficulty sleeping Chronic GERD Lipid disorder Alcoholism LFT elevation Surgical History History of esophagogastroduodenoscopy (EGD) Hx of colonoscopy No pertinent past surgical history Family History Father No problems noted. Mother No problems noted. Social History Household Members: None Housing: Apartment Do you presently have visiting nurse or other home services: No Alcohol intake: current Alcohol intake frequency: 3 or more drinks per day Alcohol type: beer Patient Tobacco Use Status: Current everyday Tobacco user Cigarette Packs Per Day: 2 e-Cigarette/Vaping Use: Never Used service: No Current occupational status: retired Cognitive needs: No Hearing needs: No Vision needs: Yes Office Procedures Vascular Office Procedure Details Details: Diagnosis: Left Leg varicose veins with inflammation Procedure: Endovenous Ablation of the left Great Saphenous Vein with VenaSeal Closure System Anesthesia: Local infiltration 5 cc, Estimated Blood Loss: min Specimen: none Duplex ultrasound was used to map out the insufficient saphenous vein, and access was determined and marked on the overlying skin. The depth and diameter of the vein(s) to be treated was documented. The patient was placed supine on the procedure table and the leg was prepped and draped using sterile technique. Ultasound guidance was again used to localize the access site. 1% lidocaine was injected as a local anesthetic in the subcutaneous tissues at the target location in the GSV in the lower leg. Using ultrasound guidance, access was gained at this location with the 19 gauge thin walled access needle and followed by introduction of a short guidewire, location confirmed with ultrasound. A small, 3 mm incision was made at the access site to allow for introduction and placement of the 7 Fr x7cm introducer/dilator. The dilator and guidewire were removed. The 0.035 guidewire from the VenaSeal kit was then introduced and positioned at the saphenofemoral junction using ultrasound guidance. The 80 cm 7 Fr introducer sheath/dilator was positioned 5cm from the saphenofemoral junction. The guidewire and dilator were removed, and the remaining sheath was flushed with sterile saline, with the syringe remaining in place prior to the next steps. The cyanoacrylate adhesive was precisely primed into the 5 F delivery catheter and this catheter/syringe combination was attached within the dispenser gun. This assembly was introduced through the 7F sheath and positioned 5 cm caudal of the saphenofemoral junction under ultrasound guidance. The steps from the IFU were followed for dispensing amounts, locations and compression times, 2 aliquots proximally with 3 minutes of compression, and 1 aliquot every 3 cm distally with 30 sec of compression along the course of the vessel. Following the last injection and compression sequence, the catheter and introducer sheath were pulled out from the access site. Hemostasis was achieved with manual compression and an adhesive bandage was applied to the incision. Ultrasound confirmed complete coaptation and closure of the treated segments of the GSV, and the absence of any DVT at the saphenofemoral junction. Treatment time was approximately 7 minutes and the vein length treated was 55 cm. The drapes were removed and the patient cleaned and prepared for discharge. Post op ultrasound check is scheduled for 48-72 hours and the patient was given written post-op instructions. 88166 - Endoven Ther Chem Adhes 1st All charges added?: Procedure code (CPT) selection complete Assessment & Plan Assessment & Plan (1) Varicose veins of left lower extremity with inflammation: Comment: 03/25/2024 - left great saphenous vein Cyanoacralate ablation Code(s): I83.12 - Varicose veins of left lower extremity with inflammation Category: Medical Plan: See op note Coding Level of Care Code Procedure Only Diagnoses Varicose veins of left lower extremity with inflammation I83.12 CPT Codes Details - Vascular 3: 64246 - Endoven Ther Chem Adhes 1st ([id number])
== END 2024-03-25 13:05 | disposition home or self-care (01) ==
PROVIDERS: PCP Internal Medicine; Visit Provider Surgery Vascular Surgery
DX: I83.12 Varicose veins of left lower extremity with inflammation (principal)
CPT/HCPCS: 36482

== ENCOUNTER → 2024-03-25 12:00 | Outpatient (BNVA) | payer OTHER, MEDICAID, SELFPAY | PROVIDERS: PCP Internal Medicine; Visit Provider Surgery Vascular Surgery | DX: I83.12 Varicose veins of left lower extremity with inflammation (principal) | CPT/HCPCS: 36482 ==

== ENCOUNTER 2024-03-28 10:23 | Outpatient (REF) | payer OTHER, MEDICAID, SELFPAY ==
--- NOTE | ~2024-03-28 | US_ITS ---
EXAMINATION: US VENOUS ULTRASOUND WITH DOPPLER LOWER EXTREMITY, LEFT CLINICAL INFORMATION: Postvenous ablation evaluation worksheet, Adebayo left on 03/25/2024. Follow up interval: Not applicable. COMPARISON: None available. TECHNIQUE: Ultrasound of the deep veins is performed from the hip to the calf with compression sonography and color and pulse Doppler assessment. Spectral analysis with color-flow imaging is performed. FINDINGS: There is normal venous compression and respiratory variation and augmented flow. The visualized common femoral vein, superficial femoral vein, profunda femoral vein, popliteal vein, and the trifurcation region shows no evidence of deep venous thrombosis. There is no significant popliteal fossa cyst. GSV 2.0 cm, closed. If the patient's symptoms persist, followup ultrasound in 5 days 7 days might be of value to exclude proximal propagation from a nonvisualized calf vein. US/US venous duplex LE IMPRESSION: No DVT demonstrated in the left lower extremity.
== END 2024-03-28 10:24 | disposition home or self-care (01) ==
LOC: HO.HMGCX 10:23
PROVIDERS: PCP Internal Medicine; Visit Provider Surgery Vascular Surgery
DX: M79.605 Pain in left leg (principal)
CPT/HCPCS: 93971

== ENCOUNTER 2024-04-11 13:26 | Outpatient (AMB) | payer OTHER, MEDICAID, SELFPAY ==
--- NOTE | 2024-04-11 13:32 | A.OFFVIS_ITS ---
Intake Visit Reasons: 2 week follow up Left GSV Venaseal 03/25/24 Intake Note: Patient presents for follow up left gsv venaseal . Patient states he still has pain in his leg and that he can feel a stent in his left leg. Accompanied by: Self / Same As Patient Allergies bee pollen [BEE STINGS] Allergy (Unknown, Verified 04/11/24 13:34) HIVES poison tara extract Allergy (Verified 04/11/24 13:34) Hives HPI HPI 2 week follow up Left GSV Venaseal 03/25/24: Details: Very pleasant 59-year-old gentleman presents for follow-up evaluation regarding left great saphenous vein Cyanoacralate ablation. He reports he did fairly well after the procedure. He does have a little tenderness along the track of the great saphenous vein but overall no significant discomfort. Overall swelling and discomfort have decreased. Of note postprocedure ultrasound was negative for DVT. At the current time he is concerned about his right lower extremity. It in a similar fashion has been swollen and a source of pain and discomfort for him. He now presents for right lower extremity evaluation [facility] Medical History Depression, major, recurrent Difficulty sleeping Chronic GERD Lipid disorder Alcoholism LFT elevation Surgical History History of esophagogastroduodenoscopy (EGD) Hx of colonoscopy No pertinent past surgical history Family History Father No problems noted. Mother No problems noted. Social History Household Members: None Housing: Apartment Do you presently have visiting nurse or other home services: No Alcohol intake: current Alcohol intake frequency: 3 or more drinks per day Alcohol type: beer Patient Tobacco Use Status: Current everyday Tobacco user Cigarette Packs Per Day: 2 e-Cigarette/Vaping Use: Never Used service: No Current occupational status: retired Cognitive needs: No Hearing needs: No Vision needs: Yes Review of Systems Const Reports as per HPI ENT Reports no additional complaints Card Denies chest pain, Denies chest pain at rest and Denies chest pain with activity Resp Denies chest congestion and Denies cough GI Reports no additional complaints Musc Details: pain over varicosities, aching of lower extremities, swelling, cramping, heaviness and tiredness, itching Denies abnormal gait Skin/Breast Reports pruritus and Denies wounds Neuro Reports no additional complaints and Denies abnormal gait Psych Denies no additional complaints Physical Exam Const General: cooperative, healthy appearing and comfortable Orientation/consciousness: oriented to person, oriented to place and oriented to time Neck Carotids: no bruits Chest Chest palpation & inspection: normal inspection of the chest and normal palpation of entire chest wall Resp Effort & Inspection: normal respiratory effort and able to speak in complete sentences Cardio Rate: regular rate Heart sounds: S1 normal heart sound present and S2 normal heart sound present Peripheral pulses: Peripheral pulses 2+ throughout GI Inspection: Yes normal to inspection Skin Other: +2 edema, large rope-like varicosities greater than 4 mm right calf CEAP Classification C4 - skin color changes Ep - Etiology Primary As - superficial veins P - reflux General skin exam: dry skin Neuro General: oriented to person, oriented to place and oriented to time Extrem Right lower extremity: full ROM, normal capillary refill and edema Left lower extremity: full ROM, normal capillary refill and edema Psych Mental Status: mental status grossly normal Results Reviewed Results Reviewed: Brief summary of venous insufficiency testing is as follows: right great saphenous vein: Positive right small saphenous vein: negative right accessory vein: none present left great saphenous vein: Ablated left small saphenous vein: negative left accessory vein: none present Please note there is no evidence of any venous aneurysms or significant tortuosity Assessment & Plan Assessment & Plan (1) Varicose veins of left lower extremity with inflammation: Comment: 03/25/2024 - left great saphenous vein Cyanoacralate ablation Code(s): I83.12 - Varicose veins of left lower extremity with inflammation Category: Medical Plan: See below (2) Varicose veins of right lower extremity with inflammation: Code(s): I83.11 - Varicose veins of right lower extremity with inflammation Category: Medical Plan: This patient has varicose veins with inflammation. They continue to be a source of discomfort for the patient. The patient has tried conservative treatment with compression, leg elevation and exercise program for over 3 months time. They have been compliant with all treatment. This has provided minimal relief for the patient. I do not anticipate this course of treatment will alter the underlying etiology. The patient has been scheduled for lower extremity venous treatment inclusive of --- right great saphenous vein Cyanoacralate ablation. Risks, benefits, and complications of this procedure has been discussed in detail with the patient including but not limited to bleeding, infection, and the development of a DVT. The patient has demonstrated a clear understanding and has consented. We will schedule the patient as soon as possible. Thank you for allowing us to participate in this patient's care. If there are any questions or concerns please do not hesitate to contact us. Coding Level of Care Code Est Pt Level 4 (42444) Diagnoses Varicose veins of left lower extremity with inflammation I83.12 Varicose veins of right lower extremity with inflammation I83.11
== END 2024-04-11 13:58 | disposition home or self-care (01) ==
PROVIDERS: PCP Internal Medicine; Visit Provider Surgery Vascular Surgery
DX: I83.12 Varicose veins of left lower extremity with inflammation (principal); I83.11 Varicose veins of right lower extremity with inflammation
CPT/HCPCS: 99214

== ENCOUNTER → 2024-04-11 13:26 | Outpatient (BNVA) | payer OTHER, MEDICAID, SELFPAY | PROVIDERS: PCP Internal Medicine; Visit Provider Surgery Vascular Surgery | DX: I83.12 Varicose veins of left lower extremity with inflammation (principal); I83.11 Varicose veins of right lower extremity with inflammation; Z98.890 Other specified postprocedural states | CPT/HCPCS: 99212 ==

== ENCOUNTER 2024-04-15 12:06 | Outpatient (AMB) | payer OTHER, MEDICAID, SELFPAY ==
--- NOTE | 2024-04-15 12:40 | MHC.OFFVIS ---
Intake Visit Reasons: Right GSV Venaseal Accompanied by: Self / Same As Patient Allergies bee pollen [BEE STINGS] Allergy (Unknown, Verified 04/15/24 12:40) HIVES poison tara extract Allergy (Verified 04/15/24 12:40) Hives [facility] Medical History Depression, major, recurrent Difficulty sleeping Chronic GERD Lipid disorder Alcoholism LFT elevation Surgical History History of esophagogastroduodenoscopy (EGD) Hx of colonoscopy No pertinent past surgical history Family History Father No problems noted. Mother No problems noted. Social History Household Members: None Housing: Apartment Do you presently have visiting nurse or other home services: No Alcohol intake: current Alcohol intake frequency: 3 or more drinks per day Alcohol type: beer Patient Tobacco Use Status: Current everyday Tobacco user Cigarette Packs Per Day: 2 e-Cigarette/Vaping Use: Never Used service: No Current occupational status: retired Cognitive needs: No Hearing needs: No Vision needs: Yes Office Procedures Vascular Office Procedure Details Details: Diagnosis: Right Leg varicose veins with inflammation Procedure: Endovenous Ablation of the right Great Saphenous Vein with VenaSeal Closure System Anesthesia: Local infiltration 5 cc, Estimated Blood Loss: min Specimen: none Duplex ultrasound was used to map out the insufficient saphenous vein, and access was determined and marked on the overlying skin. The depth and diameter of the vein(s) to be treated was documented. The patient was placed supine on the procedure table and the leg was prepped and draped using sterile technique. Ultasound guidance was again used to localize the access site. 1% lidocaine was injected as a local anesthetic in the subcutaneous tissues at the target location in the GSV in the lower leg. Using ultrasound guidance, access was gained at this location with the 19 gauge thin walled access needle and followed by introduction of a short guidewire, location confirmed with ultrasound. A small, 3 mm incision was made at the access site to allow for introduction and placement of the 7 Fr x7cm introducer/dilator. The dilator and guidewire were removed. The 0.035 guidewire from the VenaSeal kit was then introduced and positioned at the saphenofemoral junction using ultrasound guidance. The 80 cm 7 Fr introducer sheath/dilator was positioned 5cm from the saphenofemoral junction. The guidewire and dilator were removed, and the remaining sheath was flushed with sterile saline, with the syringe remaining in place prior to the next steps. The cyanoacrylate adhesive was precisely primed into the 5 F delivery catheter and this catheter/syringe combination was attached within the dispenser gun. This assembly was introduced through the 7F sheath and positioned 5 cm caudal of the saphenofemoral junction under ultrasound guidance. The steps from the IFU were followed for dispensing amounts, locations and compression times, 2 aliquots proximally with 3 minutes of compression, and 1 aliquot every 3 cm distally with 30 sec of compression along the course of the vessel. Following the last injection and compression sequence, the catheter and introducer sheath were pulled out from the access site. Hemostasis was achieved with manual compression and an adhesive bandage was applied to the incision. Ultrasound confirmed complete coaptation and closure of the treated segments of the GSV, and the absence of any DVT at the saphenofemoral junction. Treatment time was approximately 6 minutes and the vein length treated was 30 cm. The drapes were removed and the patient cleaned and prepared for discharge. Post op ultrasound check is scheduled for 48-72 hours and the patient was given written post-op instructions. [id number] - Endoven Ther Chem Adhes 1st All charges added?: Procedure code (CPT) selection complete Assessment & Plan Assessment & Plan (1) Varicose veins of right lower extremity with inflammation: Comment: 04/15/2024 - right great saphenous vein Cyanoacralate ablation Code(s): I83.11 - Varicose veins of right lower extremity with inflammation Category: Medical Plan: See op note Coding Level of Care Code Procedure Only Diagnoses Varicose veins of right lower extremity with inflammation I83.11 CPT Codes Details - Vascular 3: 93436 - Endoven Ther Chem Adhes 1st ([id number])
== END 2024-04-15 15:13 | disposition home or self-care (01) ==
PROVIDERS: PCP Internal Medicine; Visit Provider Surgery Vascular Surgery
DX: I83.11 Varicose veins of right lower extremity with inflammation (principal)
CPT/HCPCS: 36482

== ENCOUNTER → 2024-04-15 12:06 | Outpatient (BNVA) | payer OTHER, MEDICAID, SELFPAY | PROVIDERS: PCP Internal Medicine; Visit Provider Surgery Vascular Surgery | DX: I83.11 Varicose veins of right lower extremity with inflammation (principal) | CPT/HCPCS: 36482 ==

== ENCOUNTER 2024-04-18 14:19 | Outpatient (REF) | payer OTHER, MEDICAID, SELFPAY ==
--- NOTE | ~2024-04-18 | US_ITS ---
EXAMINATION: TRIPLEX SCANNING OF RIGHT LOWER EXTREMITY; SUPERFICIAL ULTRASOUND WITH DOPPLER OF RIGHT LOWER EXTREMITY CLINICAL INFORMATION: Status post VenaSeal ablation of the right great saphenous vein originally performed on 04/15/2024. COMPARISON: Preprocedure studies. TECHNIQUE: Color flow triplex imaging and compression Doppler were performed as well as superficial ultrasound with Doppler. FINDINGS: TRIPLEX SCANNING OF RIGHT LOWER EXTREMITY: Respiratory variation, normal compression and augmented flow are noted throughout the lower extremity. The visualized right common femoral vein, femoral vein, profunda femoral vein, popliteal vein and the calf veins show no evidence of deep venous thrombosis. There is no evidence of Grimaldo's cyst. SUPERFICIAL ULTRASOUND WITH DOPPLER OF RIGHT LOWER EXTREMITY: The right great saphenous vein is occluded from the access site to 3.4 cm before the saphenofemoral junction. There is no extension of thrombus into the deep system. US/US venous duplex LE RT IMPRESSION: 1. Normal triplex scan of the right without evidence of deep venous thrombosis. 2. Excellent appearance status post ablation of the right great saphenous vein.
== END 2024-04-18 14:20 | disposition home or self-care (01) ==
LOC: HO.HMGCX 14:19
PROVIDERS: PCP Internal Medicine; Visit Provider Surgery Vascular Surgery
DX: M79.604 Pain in right leg (principal)
CPT/HCPCS: 93971

== ENCOUNTER 2024-08-24 12:51 | Outpatient (REF) | payer OTHER, MEDICAID, SELFPAY ==
[2024-08-24 16:19] LABS: MANUAL DIFF FLAG NO
[2024-08-24 17:04] LABS: Basophils Absolute Auto 0.1 X10*3/uL (0.0-0.2); Basophils Percent Auto 0.8 % (0-2); Eosinophils Absolute Auto 0.1 X10*3/uL (0.0-0.4); Eosinophils Percent Auto 1.2 % (0-4); Hematocrit 45.7 % (42.0-52.0); Hemoglobin 15.8 g/dl (14.0-18.0); Imm Gran Abs Auto 0.04 X10*3/uL (0.00-0.03); Imm Gran Pct Auto 0.5 % (0.0-0.4); Lymphocytes Absolute Auto 1.5 X10*3/uL (1.2-4.9); Lymphocytes Percent Auto 17.1 % (20-40); Mean Corpuscular HGB Conc 34.6 g/dl (31.0-36.0); Mean Corpuscular Hemoglobin 30.5 pg (27.0-33.0); Mean Corpuscular Volume 88.2 fL (80.0-98.0); Mean Platelet Volume 9.9 fL (9.4-12.4); Monocytes Absolute Auto 0.8 X10*3/uL (0.1-1.2); Monocytes Percent Auto 9.6 % (2-11); Neutrophils Absolute Auto 6.1 x10*3/uL (2.0-8.3); Neutrophils Percent Auto 70.8 % (45-73); Platelet Count 249 X10*3/uL (160-400); Red Blood Count 5.18 X10*6/uL (4.60-5.80); Red Cell Distribution Width 13.2 % (11.0-16.0); White Blood Count 8.6 X10*3/uL (4.8-10.8)
[2024-08-24 17:05] LABS: Alanine Aminotransferase 80 U/L (0-40); Albumin Level 4.3 g/dL (3.5-5.0); Alkaline Phosphatase 60 U/L (39-117); Anion Gap 15 (12-20); Aspartate Amino Transferase 71 U/L (5-37); Bilirubin Total 0.6 mg/dL (0.0-1.0); Blood Urea Nitrogen 16 mg/dL (9-16); Calcium 9.7 mg/dL (8.4-10.2); Carbon Dioxide 25 mmol/L (22-29); Chloride 101 mmol/L (96-108); Estimated Glomerular Filt Rate > 60; Glucose Random 99 mg/dL (60-115); Potassium 4.3 mmol/L (3.3-5.1); Sodium 137 mmol/L (135-145); Total Protein 7.4 g/dL (6.5-8.0)
== END 2024-08-24 12:52 | disposition home or self-care (01) ==
LOC: HO.HMGCLDS 12:51
PROVIDERS: PCP Internal Medicine; Visit Provider Internal Medicine
DX: F10.10 Alcohol abuse, uncomplicated (principal); K70.30 Alcoholic cirrhosis of liver without ascites; K21.9 Gastro-esophageal reflux disease without esophagitis; R79.89 Other specified abnormal findings of blood chemistry; G62.1 Alcoholic polyneuropathy; J43.1 Panlobular emphysema; F17.200 Nicotine dependence, unspecified, uncomplicated; R25.1 Tremor, unspecified; Z79.899 Other long term (current) drug therapy
CPT/HCPCS: 36415; 80053; 85025; 99212

== ENCOUNTER 2024-08-24 12:51 | Outpatient (AMB) | payer OTHER, MEDICAID, SELFPAY ==
--- NOTE | 2024-08-24 12:52 | A.OFFPC_ITS ---
Vital Signs 08/24/24 12:54 Height 5 ft 10 in Weight 151 lb BMI 21.7 BP 124/90 H Blood Pressure Location Rt brachial Position Sitting Pulse 85 Pulse Source Pulse Oximeter Pulse Oximetry (%) 98 Oxygen Delivery Method Room Air Intake Visit Reasons: foll-up Gerd, smoking & drinking Allergies bee pollen [BEE STINGS] Allergy (Unknown, Verified 08/24/24 12:54) HIVES poison tara extract Allergy (Verified 08/24/24 12:54) Hives Medication List - Last Reconciled 08/24/24 by Yoseph Syed MD Breo Ellipta 200-25 mcg/dose (fluticasone furoate-vilanterol) 1 inh inhalation DAILY 30 days NS budesonide-formoterol 160-4.5 mcg/actuation 1 inh inhalation BID omeprazole 20 mg PO BID Tobacco use date assessed: 08/24/24 Dental Screening Dental Screen Date: 08/24/24 Did you have a dental visit in the last 12 months?: Yes Did you have a dental problem in the last 6 months where you did not have access to dental care?: No Was dental information given to patient?: Patient has dentist HPI foll-up Gerd, smoking & drinking HPI Details Patient is 59-year-old gentleman with a long history of alcohol abuse and smoking He has COPD as well Alcoholic liver disease Alcoholic neuropathy LFT elevation Last time seen was early this year Patient did not come in for follow-up after that Finally he decided to stop smoking and drinking so came in for help Currently he is drinking about 2, 48 oz of ice home beer Patient have a severe anxiety disorder to begin with He is having slight tremor in his hands today Smoking 1 to do pack of cigarettes daily I am starting him on Nicoderm patch patient is aware that once the patches on he is not to smoke Lorazepam 1 mg t.i.d. for anxiety and alcohol withdrawal Campral 666 mg t.i.d. Patient is to return in 7 days for follow-up appointment Lab needs to be done today [facility] Medical History Depression, major, recurrent Difficulty sleeping Chronic GERD Lipid disorder Alcoholism LFT elevation Surgical History History of esophagogastroduodenoscopy (EGD) Hx of colonoscopy No pertinent past surgical history Family History Father No problems noted. Mother No problems noted. Social History Household Members: None Housing: Apartment Do you presently have visiting nurse or other home services: No Alcohol intake: current Alcohol intake frequency: 3 or more drinks per day Alcohol type: beer Patient Tobacco Use Status: Current everyday Tobacco user Cigarette Packs Per Day: 2 e-Cigarette/Vaping Use: Never Used service: No Current occupational status: retired Cognitive needs: No Hearing needs: No Vision needs: Yes Questionnaire Thrive Questionnaire Date Thrive assessed: 05/06/23 MARTIN-7 AMB Questionnaire MARTIN-7 Date MARTIN - 7 assessed: 02/04/23 Source: Developed by Drs. Ba Harris, Cindy Gerardo, Darien Siddiqui and colleagues, with an educational avelino from [employer]. Review of Systems Const Denies chills and Denies fever(s) ENT Denies epistaxis and Denies nasal discharge Card Denies chest pain Resp Denies chest congestion, Denies cough and Denies hemoptysis GI Denies diarrhea and Denies nausea Skin/Breast Denies rash Neuro Reports no additional complaints Psych Reports no additional complaints Endo Reports no additional complaints Physical exam (Primary Care) Vital Signs: Last Vital Signs Pulse 85 08/24/24 12:54 BP 124/90 H 08/24/24 12:54 Pulse Ox 98 08/24/24 12:54 Oxygen Delivery Method Room Air 08/24/24 12:54 BMI result Body Mass Index 21.7 Tobacco/Smoking Status: Tobacco use Status Tobacco use date assessed 08/24/24 08/24/24 12:56 Patient Tobacco Use Status Current everyday Tobacco 08/24/24 12:56 e-Cigarette/Vaping Use Never Used 08/24/24 12:56 Thrive Assessment: Date of Thrive Assessment Date Thrive assessed 05/06/23 08/24/24 12:56 Const General: cooperative, comfortable and no acute distress Orientation/consciousness: patient oriented x3 HENMT Head: Yes normocephalic Eyes General: appearance normal, both eyes and all related structures Neck Neck: Yes supple Resp Effort & Inspection: normal respiratory effort, no cough and no stridor Cardio Rhythm: regular rhythm Heart sounds: S1 normal heart sound present and S2 normal heart sound present Skin General skin exam: turgor normal Neuro Other: Fine tremor noted in both hands General: patient oriented x3, tone normal and moves all extremities Extrem Right lower extremity: no edema Left lower extremity: no edema Coding Level of Care Code Est Pt Level 4 (44853) Complex EM visit Add On G2211 Diagnoses Alcohol abuse F10.10 Alcoholic cirrhosis of liver without ascites K70.30 Ascites presence: without ascites LFT elevation R79.89 Alcoholic peripheral neuropathy G62.1 Panlobular emphysema J43.1 COPD type: emphysema Emphysema type: panlobular Chronic GERD K21.9 Tobacco dependence F17.200 Tremor of both hands R25.1 Assessment & Plan Assessment & Plan (1) Alcohol abuse: Code(s): F10.10 - Alcohol abuse, uncomplicated Category: Social Hx (2) Liver cirrhosis, alcoholic: Code(s): K70.30 - Alcoholic cirrhosis of liver without ascites Category: Medical Qualifiers: Ascites presence: without ascites Qualified Code(s): K70.30 - Alcoholic cirrhosis of liver without ascites (3) LFT elevation: Code(s): R79.89 - Other specified abnormal findings of blood chemistry Category: Medical (4) Alcoholic peripheral neuropathy: Code(s): G62.1 - Alcoholic polyneuropathy Category: Medical (5) COPD (chronic obstructive pulmonary disease): Code(s): J44.9 - Chronic obstructive pulmonary disease, unspecified Category: Medical Qualifiers: COPD type: emphysema Emphysema type: panlobular Qualified Code(s): J43.1 - Panlobular emphysema (6) Chronic GERD: Code(s): K21.9 - Gastro-esophageal reflux disease without esophagitis Category: Medical (7) Tobacco dependence: Code(s): F17.200 - Nicotine dependence, unspecified, uncomplicated Category: Medical (8) Tremor of both hands: Code(s): R25.1 - Tremor, unspecified Category: Medical Plan Patient is 59-year-old gentleman with a long history of alcohol abuse and smoking He has COPD as well Alcoholic liver disease Alcoholic neuropathy LFT elevation Last time seen was early this year Patient did not come in for follow-up after that Finally he decided to stop smoking and drinking so came in for help Currently he is drinking about 2, 48 oz of ice home beer Patient have a severe anxiety disorder to begin with He is having slight tremor in his hands today Smoking 1 to do pack of cigarettes daily I am starting him on Nicoderm patch patient is aware that once the patches on he is not to smoke Lorazepam 1 mg t.i.d. for anxiety and alcohol withdrawal Campral 666 mg t.i.d. Patient is to return in 7 days for follow-up appointment Lab needs to be done today Orders: Orders Comprehensive Met. Panel Today F10.10 - Alcohol abuse, uncomplicated, F17.200 - Nicotine dependence, unspecified, uncomplicated, G62.1 - Alcoholic polyneuropathy, J43.1 - Panlobular emphysema, K21.9 - Gastro-esophageal reflux disease without esophagitis, K70.30 - Alcoholic cirrhosis of liver without asc ites, R79.89 - Other specified abnormal findings of blood chemistry Complete Blood Count Auto Diff Today F10.10 - Alcohol abuse, uncomplicated, F17.200 - Nicotine dependence, unspecified, uncomplicated, G62.1 - Alcoholic polyneuropathy, J43.1 - Panlobular emphysema, K21.9 - Gastro-esophageal reflux disease without esophagitis, K70.30 - Alcoholic cirrhosis of liver without ascites, R79.89 - Other specified abnormal findings of blood chemistry Medications: New lorazepam 1 mg PO TID PRN 21 tabs 0RF anxiety 7 days nicotine (Nicoderm CQ) 1 patch transdermal Q24H 28 ea 0RF acamprosate 666 mg (2 x 333 mg) PO TID 60 tabs 0RF 10 days
[2024-08-24 12:54] VITALS: BP 124/90; PULSE 85; O2SAT 98; BMI 21.7
== END 2024-08-24 13:09 | disposition home or self-care (01) ==
LOC: HO.HMCC 12:52
PROVIDERS: PCP Internal Medicine; Visit Provider Internal Medicine
DX: R25.1 Tremor, unspecified (principal); K70.30 Alcoholic cirrhosis of liver without ascites; G62.1 Alcoholic polyneuropathy; J43.1 Panlobular emphysema; F10.10 Alcohol abuse, uncomplicated; K21.9 Gastro-esophageal reflux disease without esophagitis; F17.200 Nicotine dependence, unspecified, uncomplicated

== ENCOUNTER 2024-11-28 15:27 | Outpatient (AMB) | payer MEDICARE, MEDICAID, SELFPAY ==
--- NOTE | 2024-11-28 16:14 | MHC.OFFWIV ---
Intake Vital Signs 11/28/24 16:15 Weight 150 lb BP 110/80 Blood Pressure Location Lt brachial Position Sitting Pulse 111 H Pulse Source Pulse Oximeter Pulse Oximetry (%) 94 Oxygen Delivery Method Room Air Intake Visit Reasons: EP RT shoulder pain/coming out of socket Intake Note: Patient here for right shoulder pain/coming out of socket. Patient Tobacco Use Status: Current everyday Tobacco user Allergies bee pollen [BEE STINGS] Allergy (Unknown, Verified 11/28/24 16:15) HIVES poison tara extract Allergy (Verified 11/28/24 16:15) Hives Do you need a note to return to daycare/school/sports/work: No HPI HPI Comments History of Present Illness Details 59 y/o male patient who presents to the walk in clinic with c/o recurrent right shoulder dislocation. Pt reports that his right shoulder has been popping in/out for 1 year now. Reports that he was helping a friend move furniture when he dislocated his shoulder Popped out of the socket . He was able to eventually popped it back in. Pt wondering if he can have surgery today to fix it. [facility] Medical History (Updated 11/28/24 @ 16:31 by Chrissy Wood NP) Recurrent dislocation, right shoulder Depression, major, recurrent Difficulty sleeping Chronic GERD Lipid disorder Alcoholism LFT elevation Surgical History History of esophagogastroduodenoscopy (EGD) Hx of colonoscopy No pertinent past surgical history Family History Father No problems noted. Mother No problems noted. Social History Household Members: None Housing: Apartment Do you presently have visiting nurse or other home services: No Alcohol intake: current Alcohol intake frequency: 3 or more drinks per day Alcohol type: beer Patient Tobacco Use Status: Current everyday Tobacco user Cigarette Packs Per Day: 2 e-Cigarette/Vaping Use: Never Used service: No Current occupational status: retired Cognitive needs: No Hearing needs: No Vision needs: Yes Review of Systems Const All systems reviewed & are unremarkable except as noted in HPI and below Physical Exam Vital Signs: Last Vital Signs Pulse 111 H 11/28/24 16:15 BP 110/80 11/28/24 16:15 Pulse Ox 94 11/28/24 16:15 Oxygen Delivery Method Room Air 11/28/24 16:15 Const General: cooperative and no acute distress Nutritional Appearance: underweight Orientation/consciousness: patient oriented x3 Neuro General: patient oriented x3 Extrem Right upper extremity: shoulder/upper arm Details: tenderness (Humeral head unstable. Pops in/out of socket.) Location: of the proximal humerus and normal ROM (With Pain); no swelling, no ecchymosis and no crepitus Left upper extremity: normal to inspection and full ROM Psych Speech and movement: Normal speech and movement present Affect: Anxious affect present Assessment & Plan Assessment & Plan (1) Recurrent dislocation, right shoulder: Code(s): M24.411 - Recurrent dislocation, right shoulder Plan: Provided Pt a shoulder immobilizer Placed referral to Orthopedics. NSAIDs for Pain control. Orders: Referrals Orthopedics Referral M24.411 - Recurrent dislocation, right shoulder Coding Level of Care Code Est Pt Level 3 (22202) Diagnoses Recurrent dislocation, right shoulder M24.411 Time Spent (min) 15
[2024-11-28 16:15] VITALS: BP 110/80; PULSE 111; O2SAT 94
== END 2024-11-28 16:32 | disposition home or self-care (01) ==
PROVIDERS: PCP Internal Medicine; Visit Provider Nurse Practitioner Family
DX: M24.411 Recurrent dislocation, right shoulder (principal)

== ENCOUNTER → 2024-11-28 15:27 | Outpatient (BNVA) | payer OTHER, MEDICAID, SELFPAY | PROVIDERS: PCP Internal Medicine | DX: M24.411 Recurrent dislocation, right shoulder (principal) | CPT/HCPCS: 99212 ==

== ENCOUNTER 2025-01-31 12:27 | Outpatient (AMB) | payer MEDICARE, MEDICAID, SELFPAY ==
[2025-01-31 12:28] VITALS: BP 128/74; PULSE 91; O2SAT 98; BMI 20.3
--- NOTE | 2025-01-31 12:28 | A.OFFPC_ITS ---
Vital Signs 01/31/25 12:28 Height 5 ft 10 in Weight 141 lb 8 oz BMI 20.3 BP 128/74 Blood Pressure Location Rt brachial Position Sitting Pulse 91 Pulse Source Pulse Oximeter Pulse Oximetry (%) 98 Oxygen Delivery Method Room Air Intake Visit Reasons: Annual physical Allergies bee pollen [BEE STINGS] Allergy (Unknown, Verified 01/31/25 12:36) HIVES poison tara extract Allergy (Verified 01/31/25 12:36) Hives Medication List - Last Reconciled 01/31/25 by Yoseph Syed MD acamprosate 666 mg (2 x 333 mg) PO TID 10 days Breo Ellipta 200-25 mcg/dose (fluticasone furoate-vilanterol) 1 inh inhalation DAILY 30 days NS budesonide-formoterol 160-4.5 mcg/actuation 1 inh inhalation BID lorazepam 1 mg PO TID PRN 7 days omeprazole 20 mg PO BID Tobacco use date assessed: 01/31/25 Dental Screening Dental Screen Date: 01/31/25 Did you have a dental visit in the last 12 months?: Yes Did you have a dental problem in the last 6 months where you did not have access to dental care?: No Was dental information given to patient?: Patient has dentist HPI Annual physical HPI Details Physical exam appointment - The patient is a 59-year-old male pres enting for evaluation and management of chronic conditions, including alcohol use, elevated liver enzymes, and musculoskeletal pain. - The patient reports consuming alcohol once a month for reasons unspecified but relates to having something to do. - Liver enzyme tests in August showed elevated levels, believed by the patient to be due to alcohol consumption. He is willing to recheck these levels. - The patient complains of left shoulder pain - Describes pain as recurring with certa in movements, resolving when repositioned in bed. - Expresses desire to see an diabetes solutions specialist - Reports foot pain especially right tom e and also left side over the arch - Peripheral vascular disease noted, wit h known issues, but no pain on pressing during examination. Health Maintenance - Discussed potential referral for colon oscopy. Referral placed - Discussed necessary lab work for reche cking liver enzymes due to past elevations. Medications - Inhalers for respiratory maintenance - Omeprazole for stomach issues Diagnostic results - Labs: Elevated liver enzymes noted in tests from August. Patient Instructions - Follow-up on referrals to orthopedic a nd foot specialists. - Proceed with scheduled lab work to francie ssess liver enzymes. - Consider support measures for plantar fasciitis, such as arch supports and massage. Review of Systems - General: No fever no chills - Neurological: No headaches no dizzin ess - Ear nose throat: No sore throat no hearing difficulty no ear pain - Cardiovascular: No syncope, no chest pain, no palpitations - Gastrointestinal: No nausea vomiting or diarrhea - Endocrine: No polyuria polydipsia no heat intolerance - Genitourinary: No dysuria - Skin: No new complaints Physical Exam General: Cooperative, healthy appearing, comfortable, no acute distress Orientation: Patient oriented x3 Head: Normal to inspection Ears: Within normal limit visually Nose: Normal external nose present Face and sinus: Normal facial exam Eyes: Appearance normal, extraocular movement intact pupils reactive Neck: Normal visual inspection and supple Respiratory: Normal respiratory effort and able to speak in complete sentences. Clear to auscultation, no stridor Cardiovascular: S1 and S2 regular in rate and rhythm GI: Normal to inspection. Soft to palpation and nontender Skin: Turgor normal, no acute findings Neuro: Patient oriented x3, motor intact, balance off, tandem failed Extremities: Normal to inspection, tender over rotator cuff left shoulder, range of motion intact Pain over plantar fascia bilateral feet PFSH Medical History Recurrent dislocation, right shoulder Depression, major, recurrent Difficulty sleeping Chronic GERD Lipid disorder Alcoholism LFT elevation Surgical History History of esophagogastroduodenoscopy (EGD) Hx of colonoscopy No pertinent past surgical history Family History Father No problems noted. Mother No problems noted. Social History Household Members: None Housing: Apartment Do you presently have visiting nurse or other home services: No Alcohol intake: current Alcohol intake frequency: 3 or more drinks per day Alcohol type: beer Patient Tobacco Use Status: Current everyday Tobacco user Cigarette Packs Per Day: 2 e-Cigarette/Vaping Use: Never Used service: No Current occupational status: retired Cognitive needs: No Hearing needs: No Vision needs: Yes Questionnaire PHQ-9 Over the last 2 weeks, how often have you been bothered by any of the following problems? 83746 - PHQ-9 Billing: Patient declined-do not bill Source: Developed by Drs. Ba Harris, Cindy Gerardo, Darien Siddiqui and colleagues, with an educational avelino from [employer]. Thrive Questionnaire Date Thrive assessed: 01/31/25 I am a: Patient What is your living situation today?: I have a steady place to live Within the past 12 months, did the food you bought not last and you didn't have the money to get more?: Never true Within the past 12 months, did you worry whether your food would run out before you got money to buy more?: Never true Do you have trouble paying for medicines?: No Do you have trouble getting transportation to medical appointments?: No Do you have trouble paying your heating and electricity bill?: No Do you have trouble taking care of your child, family member or friend?: No Do you have trouble with day-to-day activities such as bathing, preparing meals, shopping, managing finances, etc.?: No Are you currently unemployed and looking for a job?: No Are you interested in more education?: No Please select the resources that you would like help with: None Currently or been in a relationship where the following occur: No concerns reported THRIVE Score: 0 AUDIT C Alcohol Use Questionnaire (AUDIT-C) 1. How often do you have a drink containing alcohol?: 2-3 times a week 2. How many drinks containing alcohol do you have on a typical day when you are drinking?: 5 or 6 3. How often do you have six or more drinks on one occasion?: Daily or almost daily Total Score: 9 Score Reviewed/Action Taken: Yes MARTIN-7 AMB Questionnaire MARTIN-7 Date MARTIN - 7 assessed: 01/31/25 Feeling nervous, anxious, or on edge: 0 = Not at all Not being able to stop or control worryin = Not at all Worrying too much about different things: 0 = Not at all Trouble relaxin = Not at all Being so restless that it is hard to sit still: 0 = Not at all Becoming easily annoyed or irritable: 0 = Not at all Feeling afraid as if something awful might happen: 0 = Not at all Total MARTIN-7 score (0-4 normal; 5-9 mild; 10-14 moderate; 15-21 severe): 0 Source: Developed by Drs. Ba Harris, Cindy Gerardo, Darien Siddiqui and colleagues, with an educational avelino from [employer]. MARTIN-7 Assessment Billing MARTIN-7 Assessment Tool: MARTIN-7 Assessment 92837 Physical exam (Primary Care) Vital Signs: Last Vital Signs Pulse 91 01/31/25 12:28 BP 128/74 01/31/25 12:28 Pulse Ox 98 01/31/25 12:28 Oxygen Delivery Method Room Air 01/31/25 12:28 BMI result Body Mass Index 20.3 Tobacco/Smoking Status: Tobacco use Status Tobacco use date assessed 01/31/25 01/31/25 12:37 Patient Tobacco Use Status Current everyday Tobacco 01/31/25 12:31 e-Cigarette/Vaping Use Never Used 01/31/25 12:31 Thrive Assessment: Date of Thrive Assessment Date Thrive assessed 01/31/25 01/31/25 12:37 Currently or been in a relationship where the following occur: No concerns reported Coding Level of Care Code Est Pt Level 4 (25465) Est Pt Prev Care 40-64y(50801) Diagnoses Encounter for general adult medical examination with abnormal findings Z00.01 Acute pain of left shoulder M25.512 Chronicity: acute Plantar fasciitis of right foot M72.2 LFT elevation R79.89 Lipid disorder E78.9 Chronic GERD K21.9 Alcoholism F10.20 COPD exacerbation J44.1 Alcoholic peripheral neuropathy G62.1 Colon cancer screening Z12.11 Additional Codes MARTIN-7 Assessment Billing - MARTIN-7 Assessment Tool: MARTIN-7 Assessment 76464 ([id number]) Assessment & Plan Assessment & Plan (1) Encounter for general adult medical examination with abnormal findings: Code(s): Z00.01 - Encounter for general adult medical examination with abnormal findings Category: Medical (2) Shoulder pain, left: Code(s): M25.512 - Pain in left shoulder Category: Medical Qualifiers: Chronicity: acute Qualified Code(s): M25.512 - Pain in left shoulder (3) Plantar fasciitis of right foot: Code(s): M72.2 - Plantar fascial fibromatosis Category: Medical (4) LFT elevation: Code(s): R79.89 - Other specified abnormal findings of blood chemistry Category: Medical (5) Lipid disorder: Code(s): E78.9 - Disorder of lipoprotein metabolism, unspecified Category: Medical (6) Chronic GERD: Code(s): K21.9 - Gastro-esophageal reflux disease without esophagitis Category: Medical (7) Alcoholism: Comment: CONSEQUENCES OF DRINKING PROBLEMS There are a number of serious consequences of drinking alcohol excessively -------Excessive alcohol consumption is a leading preventable cause of in the [place]. --------Drinking alcohol increases the risk of traffic accidents, suicide, drowning, and other serious injuries. -------Alcohol use continues to be the leading cause of injuries treated in [facility] and emergency departments . --------Alcohol-related liver disease may lead to end-stage liver disease (cirrhosis) and . --------Alcohol increases the risk of certain cancers of the mouth, esophagus, throat, liver, and breast. Code(s): F10.20 - Alcohol dependence, uncomplicated Category: Medical (8) COPD exacerbation: Code(s): J44.1 - Chronic obstructive pulmonary disease with (acute) exacerbation Category: Medical (9) Alcoholic peripheral neuropathy: Code(s): G62.1 - Alcoholic polyneuropathy Category: Medical (10) Colon cancer screening: Code(s): Z12.11 - Encounter for screening for malignant neoplasm of colon Category: Medical Plan Physical exam appointment - The patient is a 59-year-old male presenting for evaluation and management of chronic conditions, including alcohol use, elevated liver enzymes, and musculoskeletal pain. - The patient reports consuming alcohol once a month for reasons unspecified but relates to having something to do. - Liver enzyme tests in August showed elevated levels, believed by the patient to be due to alcohol consumption. He is willing to recheck these levels. - The patient complains of left shoulder pain - Describes pain as recurring with certain movements, resolving when repositioned in bed. - Expresses desire to see an diabetes solutions specialist - Reports foot pain especially right side and also left side over the arch - Peripheral vascular disease noted, with known issues, but no pain on pressing during examination. - continue medication for reflux and inhaler for asthma Health Maintenance - Discussed potential referral for colonoscopy. Referral placed - Discussed necessary lab work for rechecking liver enzymes due to past elevations. Medications - Inhalers for respiratory maintenance - Omeprazole for stomach issues Diagnostic results - Labs: Elevated liver enzymes noted in tests from August. Patient Instructions - Follow-up on referrals to orthopedic and foot specialists. - Proceed with scheduled lab work to reassess liver enzymes. - Consider support measures for plantar fasciitis, such as arch supports and massage. Follow-up six-month physical exam 1 year Orders: Orders Vitamin B12 Today E78.9 - Disorder of lipoprotein metabolism, unspecified, F10.20 - Alcohol dependence, uncomplicated, G62.1 - Alcoholic polyneuropathy, J44.1 - Chronic obstructive pulmonary disease with (acute) exacerbation, K21.9 - Gastro-esophageal reflux disease without esophagitis, M25.512 - Pain in left shoulder, R79.89 - Other specified abnormal findings of blood chemistry, Z00.01 - Encounter for general adult medical examination with abnormal findings TSH reflex Free T4 Today E78.9 - Disorder of lipoprotein metabolism, unspecified, F10.20 - Alcohol dependence, uncomplicated, G62.1 - Alcoholic polyneuropathy, J44.1 - Chronic obstructive pulmonary disease with (acute) exacerbation, K21.9 - Gastro-esophageal reflux disease without esophagitis, M25.512 - Pain in left shoulder, R79.89 - Other specified abnormal findings of blood chemistry, Z00.01 - Encounter for general adult medical examination with abnormal findings XR shoulder LT min 2V Today M25.512 - Pain in left shoulder Complete Blood Count Auto Diff Today E78.9 - Disorder of lipoprotein metabolism, unspecified, F10.20 - Alcohol dependence, uncomplicated, G62.1 - Alcoholic polyneuropathy, J44.1 - Chronic obstructive pulmonary disease with (acute) exacerbation, K21.9 - Gastro-esophageal reflux disease without esophagitis, M25.512 - Pain in left shoulder, R79.89 - Other specified abnormal findings of blood chemistry, Z00.01 - Encounter for general adult medical examination with abnormal findings Comprehensive Met. Panel Today E78.9 - Disorder of lipoprotein metabolism, unspecified, F10.20 - Alcohol dependence, uncomplicated, G62.1 - Alcoholic polyneuropathy, J44.1 - Chronic obstructive pulmonary disease with (acute) exacerbation, K21.9 - Gastro-esophageal reflux disease without esophagitis, M25.512 - Pain in left shoulder, R79.89 - Other specified abnormal findings of blood chemistry, Z00.01 - Encounter for general adult medical examination with abnormal findings LDL Cholesterol Direct Today E78.9 - Disorder of lipoprotein metabolism, unspecified, F10.20 - Alcohol dependence, uncomplicated, G62.1 - Alcoholic polyneuropathy, J44.1 - Chronic obstructive pulmonary disease with (acute) exacerbation, K21.9 - Gastro-esophageal reflux disease without esophagitis, M25.512 - Pain in left shoulder, R79.89 - Other specified abnormal findings of blood chemistry, Z00.01 - Encounter for general adult medical examination with abnormal findings Vitamin D 25-OH (D2 and D3) Today E78.9 - Disorder of lipoprotein metabolism, unspecified, F10.20 - Alcohol dependence, uncomplicated, G62.1 - Alcoholic polyneuropathy, J44.1 - Chronic obstructive pulmonary disease with (acute) exacerbation, K21.9 - Gastro-esophageal reflux disease without esophagitis, M25.512 - Pain in left shoulder, R79.89 - Other specified abnormal findings of blood chemistry, Z00.01 - Encounter for general adult medical examination with abnormal findings Ethanol Today E78.9 - Disorder of lipoprotein metabolism, unspecified, F10.20 - Alcohol dependence, uncomplicated, G62.1 - Alcoholic polyneuropathy, J44.1 - Chronic obstructive pulmonary disease with (acute) exacerbation, K21.9 - Gastro- esophageal reflux disease without esophagitis, M25.512 - Pain in left shoulder, R79.89 - Other specified abnormal findings of blood chemistry, Z00.01 - Encounter for general adult medical examination with abnormal findings Referrals Orthopedics Referral M25.512 - Pain in left shoulder Podiatry Referral M72.2 - Plantar fascial fibromatosis Gastroenterology Referral Z12.11 - Encounter for screening for malignant neoplasm of colon Medications: Changed From omeprazole 20 mg PO BID 60 caps 0RF To omeprazole 20 mg PO BID 90 days 180 caps 1RF Refilled Breo Ellipta 200-25 mcg/dose (fluticasone furoate-vilanterol) 1 inh inhalation DAILY 30 days 28 ea 5RF NS Discontinued lorazepam Discontinued Reason: Order 1 mg PO TID 7 days PRN 21 tabs 0RF anxiety acamprosate Discontinued Reason: Order 666 mg (2 x 333 mg) PO TID 10 days 60 tabs 0RF
== END 2025-01-31 12:58 | disposition home or self-care (01) ==
LOC: HO.HMCC 12:27
PROVIDERS: PCP Internal Medicine; Visit Provider Internal Medicine
DX: Z00.01 Encounter for general adult medical examination with abnormal findings (principal); M25.512 Pain in left shoulder; F10.20 Alcohol dependence, uncomplicated; J44.1 Chronic obstructive pulmonary disease with (acute) exacerbation; G62.1 Alcoholic polyneuropathy; M72.2 Plantar fascial fibromatosis; R79.89 Other specified abnormal findings of blood chemistry; E78.9 Disorder of lipoprotein metabolism, unspecified; K21.9 Gastro-esophageal reflux disease without esophagitis; Z12.11 Encounter for screening for malignant neoplasm of colon

== ENCOUNTER 2025-01-31 12:27 | Outpatient (REF) | payer MEDICARE, MEDICAID, SELFPAY ==
--- NOTE | ~2025-01-31 | XR_ITS ---
EXAMINATION: XR SHOULDER 2 OR MORE VIEWS LEFT HISTORY: M25.512 - Pain in left shoulder COMPARISON: There are no prior studies available for comparison. FINDINGS: Four views of the left shoulder are submitted. Osseous mineralization is normal. There is no fracture or dislocation. The glenohumeral joint is maintained. There is mild narrowing of the AC joint. The soft tissues are unremarkable. XR/XR shoulder LT min 2V IMPRESSION: Mild narrowing of the AC joint. Electronically signed by: Ba Sweet MD 02/01/2025 11:44 AM EDT
[2025-01-31 16:11] LABS: MANUAL DIFF FLAG NO
[2025-01-31 16:26] LABS: Basophils Absolute Auto 0.1 X10*3/uL (0.0-0.2); Basophils Percent Auto 0.9 % (0-2); Eosinophils Absolute Auto 0.4 X10*3/uL (0.0-0.4); Eosinophils Percent Auto 4.7 % (0-4); Hematocrit 50.2 % (42.0-52.0); Hemoglobin 16.8 g/dl (14.0-18.0); Imm Gran Abs Auto 0.03 X10*3/uL (0.00-0.03); Imm Gran Pct Auto 0.4 % (0.0-0.4); Lymphocytes Absolute Auto 1.8 X10*3/uL (1.2-4.9); Lymphocytes Percent Auto 21.4 % (20-40); Mean Corpuscular HGB Conc 33.5 g/dl (31.0-36.0); Mean Corpuscular Hemoglobin 30.1 pg (27.0-33.0); Mean Corpuscular Volume 89.8 fL (80.0-98.0); Mean Platelet Volume 10.4 fL (9.4-12.4); Monocytes Absolute Auto 0.6 X10*3/uL (0.1-1.2); Monocytes Percent Auto 6.7 % (2-11); Neutrophils Absolute Auto 5.4 x10*3/uL (2.0-8.3); Neutrophils Percent Auto 65.9 % (45-73); Platelet Count 208 X10*3/uL (160-400); Red Blood Count 5.59 X10*6/uL (4.60-5.80); Red Cell Distribution Width 13.6 % (11.0-16.0); White Blood Count 8.2 X10*3/uL (4.8-10.8)
[2025-01-31 17:03] LABS: Vitamin B12 331 pg/mL (200-900)
[2025-01-31 18:11] LABS: Alanine Aminotransferase 32 U/L (0-40); Albumin Level 4.7 g/dL (3.5-5.0); Alkaline Phosphatase 72 U/L (39-117); Anion Gap 17 (12-20); Aspartate Amino Transferase 36 U/L (5-37); Bilirubin Total 0.6 mg/dL (0.0-1.0); Blood Urea Nitrogen 14 mg/dL (9-16); Calcium 10.2 mg/dL (8.4-10.2); Carbon Dioxide 25 mmol/L (22-29); Chloride 105 mmol/L (96-108); Estimated Glomerular Filt Rate > 60; Ethanol < 10 mg/dL; Glucose Random 93 mg/dL (60-115); Potassium 4.5 mmol/L (3.3-5.1); Sodium 142 mmol/L (135-145); TSH reflex Free T4 2.39 uIU/mL (0.32-4.0); Total Protein 7.8 g/dL (6.5-8.0)
[2025-02-01 20:04] LABS: LDL Cholesterol Direct 154 mg/dL (<100)
[2025-02-04 15:29] LABS: Vitamin D 25-OH, D2 <4 ng/mL; Vitamin D 25-OH, D3 10 ng/mL; Vitamin D 25-OH, Total 10 ng/mL (30-100)
== END 2025-01-31 12:28 | disposition home or self-care (01) ==
LOC: HO.HMGCX 12:27
PROVIDERS: PCP Internal Medicine; Visit Provider Internal Medicine
DX: Z00.01 Encounter for general adult medical examination with abnormal findings (principal); R79.89 Other specified abnormal findings of blood chemistry; E78.9 Disorder of lipoprotein metabolism, unspecified; K21.9 Gastro-esophageal reflux disease without esophagitis; F10.20 Alcohol dependence, uncomplicated; J44.1 Chronic obstructive pulmonary disease with (acute) exacerbation; G62.1 Alcoholic polyneuropathy; M25.512 Pain in left shoulder
CPT/HCPCS: 36415; 73030; 80053; 80307; 82306; 82607; 83721; 84443; 85025; 96127; 99212; 99396

== ENCOUNTER → 2025-01-31 13:04 | Outpatient (BNV) | payer MEDICARE, MEDICAID, SELFPAY | PROVIDERS: PCP Internal Medicine; Visit Provider Radiology Diagnostic Radiology | DX: M25.512 Pain in left shoulder (principal) | CPT/HCPCS: 73030 ==

== ENCOUNTER 2025-03-29 08:48 | Outpatient (REF) | payer MEDICARE, MEDICAID, SELFPAY ==
--- NOTE | ~2025-03-29 | XR_ITS ---
EXAMINATION: XR SHOULDER, RIGHT CLINICAL INFORMATION: M25.511 - Pain in right shoulder COMPARISON: None available. TECHNIQUE: AP and scapular Y views of the right shoulder. FINDINGS: The AC joint is intact with mild degenerative change. Short linear calcific density is evident cephalad to the lateral aspect of the acromion. Glenohumeral joint is intact with minimal joint space narrowing. No fracture line is evident. XR/XR shoulder RT min 2V IMPRESSION: Short linear calcification cephalad to the lateral aspect acromion is likely chronic. Mild AC joint arthropathy. Electronically signed by: Evaristo Urban MD 03/29/2025 03:42 PM EDT
--- OUTSIDE RECORDS SUMMARY | 2025-03-30 09:16 | XMS_ITS | Clinical Summary ---
Author Organization 175 [facility] Address [address] [place] [address] Phone Care Team Providers Care Licensed Practical Vocational Nurse Name Role Phone Yoseph Syed MD Primary Care Provider Social History Tobacco Use Types Packs/Day Years Used Date Smoking Tobacco: Never Assessed Sex and Gender Information Value Date Recorded Sex Assigned at Not on file Legal Sex Male 9:02 AM EDT Gender Identity Not on file Sexual Orientation Not on file Plan of Treatment Upcoming Encounters Date Type Department Care Team ([facility] st Contact Info) Description 04/10/2025 10:15 AM EDT Consult Orthopedic Surgery - [place] [address] [phone] Ozzy Orellana, DPM [address] [address] Health Maintenance Due Date Last Done Comments [...] Insurance MEDICAID - [place] MEDICARE Care Teams Licensed Practical Vocational Nurse Relationship Specialty Start Date End Date Yoseph Syed MD [address] [place] [address] PCP - General Internal Medicine 02/22/25
== END 2025-03-29 08:49 | disposition home or self-care (01) ==
LOC: HO.HOSX 08:48
PROVIDERS: Visit Provider Orthopaedic Surgery
DX: M25.511 Pain in right shoulder (principal)
CPT/HCPCS: 73030

== ENCOUNTER 2025-03-29 12:27 | Outpatient (AMB) | payer OTHER, MEDICAID, SELFPAY ==
[2025-03-29 12:38] VITALS: BMI 20.2
--- NOTE | 2025-03-29 12:38 | A.OFFVIS_ITS ---
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 He also has intermittent left shoulder pain. He states that his right shoulder pain and weakness are worse in his left at this point. The patient states that he fell onto his right shoulder last year while carrying an air conditioning unit. He had acute onset of pain. Since that time his symptoms have gotten worse in spite of continued non operative treatments. He has failed the last 6 weeks of conservative treatment which have included a home exercise program, physical therapy exercises, Tylenol and anti-inflammatory medicines. The patient reports weakness when lifting his right hand above shoulder height. Allergies bee pollen [BEE STINGS] Allergy (Unknown, Verified 03/29/25 12:43) HIVES poison tara extract Allergy (Verified 03/29/25 12:43) Hives Medication List - Last Reconciled 03/29/25 by Chaz Mckee MD Breo Ellipta 200-25 mcg/dose (fluticasone furoate-vilanterol) 1 inh inhalation DAILY 30 days NS budesonide-formoterol 160-4.5 mcg/actuation 1 inh inhalation BID cholecalciferol (vitamin D3) 25 mcg PO DAILY 90 days omeprazole 20 mg PO BID 90 days [facility] Medical History Recurrent dislocation, right shoulder Depression, major, recurrent Difficulty sleeping Chronic GERD Lipid disorder Alcoholism LFT elevation Surgical History History of esophagogastroduodenoscopy (EGD) Hx of colonoscopy No pertinent past surgical history Family History Father No problems noted. Mother No problems noted. Social History Household Members: None Housing: Apartment Do you presently have visiting nurse or other home services: No Alcohol intake: current Alcohol intake frequency: 3 or more drinks per day Alcohol type: beer Patient Tobacco Use Status: Current everyday Tobacco user Cigarette Packs Per Day: 2 e-Cigarette/Vaping Use: Never Used service: No Current occupational status: retired Cognitive needs: No Hearing needs: No Vision needs: Yes Physical Exam Vital Signs: BMI result Body Mass Index 20.2 Const Other: Well-nourished well-developed very friendly male awake alert and oriented x3 in no acute distress Extrem Other: Bilateral upper extremity examination shows good capillary refill, no skin lesions noted, normal sensation light touch Right shoulder examination shows decreased range of motion when compared to his left shoulder, 4+ out of 5 strength with supraspinatus testing, positive impingement signs, tenderness over his acromioclavicular joint Results Reviewed Results Reviewed: X-rays of the patient's bilateral shoulder show severe acromioclavicular joint narrowing, type 2 acromion, no acute bony abnormalities Assessment & Plan Assessment & Plan (1) Rotator cuff insufficiency of right shoulder: Code(s): M25.311 - Other instability, right shoulder Category: Medical Plan Mr. Guerra presents with bilateral shoulder pains and weakness, right greater than left, due to impingement syndrome and possible rotator cuff tearing. Thus, I will send the patient for an MRI of his right shoulder for further evaluation. I will see him back once the MRI is completed to discuss the findings and treatment options. Feel free to call me at any time should questions regarding his orthopedic management arise. Thank you very much for asking me to see this very friendly gentleman. I spent 21 minutes in reviewing the patient's records and imaging studies, seeing the patient and documenting in the medical record. Orders: Orders MR shoulder RT wo con Today M25.311 - Other instability, right shoulder XR shoulder RT min 2V Today M25.511 - Pain in right shoulder Coding Level of Care Code New Pt Level 3 (27685) Complex EM visit Add On G2211 Diagnoses Rotator cuff insufficiency of right shoulder M25.311
--- OUTSIDE RECORDS SUMMARY | 2025-03-29 13:55 | XMS_ITS | Clinical Summary ---
Author Organization [address] [facility] Address [address] [place] [address] Phone Care Team Providers Care Lumber Material Handler Name Role Phone Yoseph Syed MD Primary Care Provider [phone] Social History Tobacco Use Types Packs/Day Years Used Date Smoking Tobacco: Never Assessed Sex and Gender Information Value Date Recorded Sex Assigned at Not on file Legal Sex Male 9:02 AM EDT Gender Identity Not on file Sexual Orientation Not on file Plan of Treatment Upcoming Encounters Date Type Department Care Team ([facility] st Contact Info) Description 04/10/2025 10:15 AM EDT Consult Orthopedic Surgery - [place] [address] [phone] Ozzy Orellana, DPM [address] [address] Health Maintenance Due Date Last Done Comments DTaP,Tdap,and Td Vaccines (1 - Tdap) 1982 Pneumococcal Vaccine: 50+ Ye ars (1 of 1 - PCV) 2013 Zoster Vaccines (1 of 2) 2013 COVID-19 Vaccine ( - 2023-2 5 season) 2024 Cholesterol Screening (Lipid Panel) 02/22/2025 Colorectal Cancer Screening: Colonoscopy 02/22/2025 Depression Screening 02/22/2025 HIV Screening 02/22/2025 Hepatitis C Screening 02/22/2025 Medicare Annual Wellness Visit 02/22/2025 Social Influencers of Health Screening 02/22/2025 Influenza Vaccine (Season Ended) 2025 RSV Immunization Adult Patie nts (1 - 1-dose 75+ series) 2038 HIB Vaccines Aged Out No longer eligi ble based on patient's age to complete this topic HPV Vaccines Aged Out No longer eligi ble based on patient's age to complete this topic Hepatitis A Vaccines Aged Out No long er eligible based on patient's age to complete this topic Hepatitis B Vaccines Aged Out No long er eligible based on patient's age to complete this topic IPV Vaccines Aged Out No longer eligi ble based on patient's age to complete this topic MMR Vaccines Aged Out No longer eligi ble based on patient's age to complete this topic Meningococcal ACWY Vaccine Aged Out N o longer eligible based on patient's age to complete this topic Meningococcal B Vaccine Aged Out No l onger eligible based on patient's age to complete this topic Pneumococcal Vaccine: Pediat rics (0 to 5 Years) and At-Risk Patients (6 to 64 Years) Aged Out No longer eligible b ased on patient's age to complete this topic RSV Immunization Patients Un diann 20 months Aged Out No longer eligible b ased on patient's age to complete this topic Varicella Vaccines Aged Out No longer eligible based on patient's age to complete this topic Insurance [place]ICA[place] - [place] MEDICARE Care Teams Lumber Material Handler Relationship Specialty Start Date End Date Yoseph Syed MD [address] [place] [address] PCP - General Internal Medicine 02/22/25
== END 2025-03-29 12:54 | disposition home or self-care (01) ==
LOC: HO.HOS 12:28
PROVIDERS: PCP Internal Medicine; Visit Provider Orthopaedic Surgery
DX: M25.311 Other instability, right shoulder (principal)
CPT/HCPCS: 99203

== ENCOUNTER → 2025-03-29 12:31 | Outpatient (BNV) | payer MEDICARE, MEDICAID, SELFPAY | PROVIDERS: Visit Provider Radiology Diagnostic Radiology | DX: M75.31 Calcific tendinitis of right shoulder (principal) | CPT/HCPCS: 73030 ==

== ENCOUNTER 2025-04-14 12:52 | Outpatient (REF) | payer MEDICARE, MEDICAID, SELFPAY ==
--- NOTE | ~2025-04-14 | MR_ITS ---
EXAMINATION: MRI right shoulder without contrast TECHNIQUE: Multiplanar multisequence MR imaging through an upper extremity joint without contrast. INDICATION: M25.311 - Other instability, right shoulder PRIOR: X-ray March 29, 2025 FINDINGS: Rotator Cuff: There is a deep partial thickness undersurface tear involving supraspinatus tendon at the footprint. There is a separate appearing deep undersurface tear of infraspinatus tendon at its anterior footprint. Subscapularis appears intact, but obscured by motion. Labrum: Angled increased signal in superior labrum is concerning for tear. Long biceps tendon: The long biceps tendon is intact and not displaced from the groove. Acromioclavicular joint: There is joint space narrowing, moderate osteophyte formation, and reactive marrow signal. Acromial morphology is nearly flat, type I. There is a small subacromial spur. Trace fluid is present in the subacromial subdeltoid bursa. Axillary pouch: The axillary pouch is intact. Articular cartilage: There are no articular cartilage defects. Bones/Marrow: 2 cm septated degenerative cyst is present in the posterior greater tuberosity extending to the lateral anatomic neck of humerus. Soft tissues: There is mild generalized fatty streaking consistent with deconditioning. There is no muscle edema. MR/MR shoulder RT wo con IMPRESSION: Near full-thickness undersurface tear of anterior supraspinatus tendon and anterior infraspinatus tendon. Focal SLAP tear. Moderate AC joint arthropathy. Degenerative cystic change in the greater tuberosity. Electronically signed by: Evaristo Urban MD 04/14/2025 02:26 PM EDT
== END 2025-04-14 12:53 | disposition home or self-care (01) ==
LOC: HO.MRI 12:52
PROVIDERS: Visit Provider Orthopaedic Surgery
DX: M25.311 Other instability, right shoulder (principal)
CPT/HCPCS: 73221

== ENCOUNTER → 2025-04-14 12:52 | Outpatient (BNV) | payer MEDICARE, MEDICAID, SELFPAY | PROVIDERS: Visit Provider Radiology Diagnostic Radiology | DX: M75.111 Incomplete rotator cuff tear or rupture of right shoulder, not specified as traumatic (principal) | CPT/HCPCS: 73221 ==

== ENCOUNTER 2025-04-20 09:51 | Outpatient (AMB) | payer MEDICARE, MEDICAID, SELFPAY ==
[2025-04-20 10:10] VITALS: BMI 20.2
--- NOTE | 2025-04-20 10:10 | MHC.OFFVIS ---
Vital Signs 04/20/25 10:10 Height 5 ft 10 in Weight 141 lb BMI 20.2 Intake Visit Reasons: Right shoulder pain and weakness Intake Note: Adolph is a 60 year old right hand dominant male who presents with complaints of progressively worsening right shoulder pain and weakness. He also has intermittent left shoulder pain. He states that his right shoulder pain and weakness are worse in his left at this point. The patient states that he fell onto his right shoulder last year while carrying an air conditioning unit. He had acute onset of pain. Since that time his symptoms have gotten worse in spite of continued non operative treatments. He has failed the last 6 weeks of conservative treatment which have included a home exercise program, physical therapy exercises, Tylenol and anti-inflammatory medicines. The patient reports weakness when lifting his right hand above shoulder height. Allergies bee pollen (BEE STINGS) Allergy (Unknown, Verified 04/20/25 10:31) HIVES poison tara extract Allergy (Verified 04/20/25 10:31) Hives Medication List - Last Reconciled 04/20/25 by Chaz Mckee MD Breo Ellipta 200-25 mcg/dose (fluticasone furoate-vilanterol) 1 inh inhalation DAILY 30 days NS budesonide-formoterol 160-4.5 mcg/actuation 1 inh inhalation BID cholecalciferol (vitamin D3) 25 mcg PO DAILY 90 days omeprazole 20 mg PO BID 90 days PFS Medical History Recurrent dislocation, right shoulder Depression, major, recurrent Difficulty sleeping Chronic GERD Lipid disorder Alcoholism LFT elevation Surgical History History of esophagogastroduodenoscopy (EGD) Hx of colonoscopy No pertinent past surgical history Family History Father No problems noted. Mother No problems noted. Social History Household Members: None Housing: Apartment Do you presently have visiting nurse or other home services: No Alcohol intake: current Alcohol intake frequency: 3 or more drinks per day Alcohol type: beer Patient Tobacco Use Status: Current everyday Tobacco user Cigarette Packs Per Day: 2 e-Cigarette/Vaping Use: Never Used service: No Current occupational status: retired Cognitive needs: No Hearing needs: No Vision needs: Yes Physical Exam Vital Signs: BMI result Body Mass Index 20.2 Const Other: Well-nourished well-developed very friendly male awake alert and oriented x3 in no acute distress Extrem Other: Bilateral upper extremity examination shows good capillary refill, no skin lesions noted, normal sensation light touch Right shoulder examination shows slightly decreased range of motion compared to his left shoulder, 4/5 strength with supraspinatus testing, positive impingement signs, tenderness over his acromioclavicular joint, no instability Results Reviewed Results Reviewed: MRI of the patient's right shoulder show severe acromioclavicular joint narrowing, a type 2 acromion, a full-thickness tear of the supraspinatus tendon Assessment & Plan Assessment & Plan (1) Rotator cuff insufficiency of right shoulder: Code(s): M25.311 - Other instability, right shoulder Category: Medical Plan Mr. Guerra presents with progressively worsening right shoulder pain and weakness due to impingement syndrome, acromioclavicular joint arthritis and a full-thickness rotator cuff tear. I had a lengthy discussion with the patient regarding the treatment options. At this point he has failed continued non operative treatments. The risks and benefits of right shoulder surgery were discussed at length with the patient. The patient wishes to proceed with surgery. Surgery will involve right shoulder arthroscopic distal clavicle excision, right shoulder arthroscopic acromioplasty, and right shoulder mini open rotator cuff repair. The patient will be scheduled for next available date. He will follow-up as instructed. Feel free to call me at any time should questions regarding his orthopedic management arise. I spent 22 minutes in reviewing the patient's records and imaging studies, seeing the patient and documenting in the medical record. Coding Level of Care Code Est Pt Level 3 (43158) Complex EM visit Add On G2211 Diagnoses Rotator cuff insufficiency of right shoulder M25.311
== END 2025-04-20 10:55 | disposition home or self-care (01) ==
LOC: HO.HOS 09:51
PROVIDERS: Visit Provider Orthopaedic Surgery
DX: M25.311 Other instability, right shoulder (principal)
CPT/HCPCS: 99214; G2211

== ENCOUNTER → 2025-04-20 09:51 | Outpatient (BNVA) | payer MEDICARE, SELFPAY | PROVIDERS: Visit Provider Orthopaedic Surgery | DX: M75.121 Complete rotator cuff tear or rupture of right shoulder, not specified as traumatic (principal); M25.311 Other instability, right shoulder | CPT/HCPCS: 99212 ==

== ENCOUNTER 2025-06-02 12:49 | Outpatient (AMB) | payer MEDICARE, SELFPAY ==
--- OUTSIDE RECORDS SUMMARY | 2025-06-02 12:52 | XMS_ITS | Clinical Summary ---
Author Organization [address] [place] [address] Address [address] [place] [address] Phone Care Team Providers Care Payroll Auditor Name Role Phone Yoseph Syed MD Primary Care Provider [phone] Allergies No known active allergies Medications diclofenac (Voltaren Arthritis Pain) 1 % topical gel Apply 4 g topically 2 (two) times a day. 240 g 1 5 06/09/20 25 Active Encounters Date Type Department Care Team Description 04/19/2025 Telephone Orthopedic Surgery [facility] [address] [phone] Ozzy Orellana DPM 04/10/2025 10:15 AM EDT Consult Orthopedic [facility] [address] [phone] Ozzy Orellana DPM Arthritis of both feet (Primary Dx); Pain in both feet; Hammertoes of both feet; Cramping of feet from Last 3 Months Social History Tobacco Use Types Packs/Day Years Used Date Smoking Tobacco: Never Assessed Sex and Gender Information Value Date Recorded Sex Assigned at Not on file Legal Sex Male 9:02 AM EDT Gender Identity Not on file Sexual Orientation Not on file Last Filed Vital Signs Vital Sign Reading Time Taken Comments Blood Pressure - - Pulse - - Temperature - - Respiratory Rate - - Oxygen Saturation - - Inhaled Oxygen Concentration - - Weight 63.5 kg (140 lb) 04/10/2025 10:17 AM EDT Height 177.8 cm (5' 10 ) 04/10/2025 10:17 AM EDT Body Mass Index 20.09 04/10/2025 10:17 AM EDT Plan of Treatment Health Maintenance Due Date Last Done Comments Pneumococcal Vaccine: 50+ Years (1 of 1 - PCV) 2013 Zoster Vaccines (2 of 2) 03/16/2020 01/20/2020 Depression Screening 10/19/2024 Cholesterol Screening (Lipid Panel) 02/22/2025 Colorectal Cancer Screening: Colonoscopy 02/22/2025 HIV Screening 02/22/2025 Hepatitis C Screening 02/22/2025 Medicare Annual Wellness Visit 02/22/2025 Social Influencers of Health Screening 02/22/2025 Influenza Vaccine (#1) 2025 , 08/28/2023, 09/09/2022, Additional history exists DTaP,Tdap,and Td Vaccines (3 - Td or Tdap) 07/16/2028 07/16/2018, 05/04/2008 Hepatitis B Vaccines Completed 09/18/2009, 03/21/2009, 02/20/2009 RSV Immunization Adult Patients Completed 08/28/2023 COVID-19 Vaccine Completed 08/10/2024, 07/2023, 12/18/2022, Additional history exists HIB Vaccines Aged Out No longer eligi [...] to complete this topic RSV Immunization Patients Under 20 months Aged Out No longer eligible based on patient's age to complete this topic Varicella Vaccines Aged Out No longer eligible based on patient's age to complete this topic Insurance MEDICAID - [place] MEDICARE [facility] Care Teams Payroll Auditor Relationship Specialty Start Date End Date Yoseph Syed MD [address] [place] [address] PCP - General Internal Medicine 02/22/25
--- NOTE | 2025-06-02 13:00 | MHC.PC.OV ---
Vital Signs 06/02/25 13:01 Height 5 ft 10 in Weight 153 lb BMI 22.0 BP 138/78 Blood Pressure Location Lt brachial Position Sitting Pulse 80 Pulse Source Pulse Oximeter Pulse Oximetry (%) 98 Intake Visit Reasons: Pre op - shoulder surgery Allergies bee pollen (BEE STINGS) Allergy (Unknown, Verified 06/02/25 13:02) HIVES poison tara extract Allergy (Verified 06/02/25 13:02) Hives Medication List - Last Reconciled 06/02/25 by Yoseph Syed MD Breo Ellipta 200-25 mcg/dose (fluticasone furoate-vilanterol) 1 inh inhalation DAILY 30 days NS budesonide-formoterol 160-4.5 mcg/actuation 1 inh inhalation BID cholecalciferol (vitamin D3) 25 mcg PO DAILY 90 days omeprazole 20 mg PO BID 90 days Tobacco use date assessed: 01/31/25 Dental Screening Dental Screen Date: 01/31/25 HPI Pre op - shoulder surgery HPI Details Chief Complaint The patient is undergoing evaluation and clearance for upcoming right shoulder surgery. History The patient is a 60-year-old male presenting with pre-surgical evaluation. Right Shoulder Pain: - The patient reports bilateral shoulder pain, with a primary focus on the right shoulder, which is scheduled for surgical repair. - The shoulder pain affects his range of motion, particularly when bending and although movement is possible, it is painful. - No history of recent trauma or exacerbating injury reported. Smoking History: - The patient maintains a history of smoking, with cessation attempts discussed. - Last reported cigarette use was on Thursday prior to the visit. Alcohol Overuse: - The patient has a longstanding history of alcohol overuse with recent efforts to reduce consumption. - Last reported alcohol intake was beer consumed on the prior Thursday. - Reports experiencing headaches associated with drinking, prompting him to consider cessation. Chronic Obstructive Pulmonary Disease (COPD): - The patient has a history of COPD and uses a Symbicort inhaler. - No recent exacerbations or respiratory complaints were reported. Gastroesophageal Reflux Disease (GERD): - The patient has a history of chronic GERD managed with omeprazole 20 mg BID. - No current symptoms of nausea or vomiting reported. Pre Hypertension: - Current blood pressure reading was 138/78 mmHg. Medical History: - Chronic Obstructive Pulmonary Disease (COPD) - Gastroesophageal Reflux Disease (GERD) - pre Hypertension - Longstanding alcohol overuse - smoker Diagnostic Results: - Labs: Liver enzymes were within normal limits during the last check in January. - Tests: Electrocardiogram (EKG) performed today showed normal sinus rhythm with no acute findings. Medications - Omeprazole 20 mg BID for GERD - Vitamin D supplementation - Symbicort inhaler for COPD Problem List - Pre-surgical evaluation for Right Shoulder Pain - Smoking - Alcohol Overuse - Chronic Obstructive Pulmonary Disease (COPD) - Gastroesophageal Reflux Disease (GERD) - Hypertension Plan - The patient plans to reduce alcohol consumption to mitigate headaches and lower stress on the liver pre-surgery. Risks of continued alcohol use discussed in the context of surgery. - Continued support for smoking cessation was provided, encouraging complete cessation to enhance surgical outcomes. - The patient will proceed with pulmonary services appointment on the for pre-surgical clearance. - Right shoulder surgery is confirmed and scheduled for June 30. - An orthopedic visit is arranged for June 22 to finalize surgical preparations. - Follow-up diagnostic labs will be undertaken to re-evaluate liver enzymes. Patient is stable for right shoulder surgery Medical Decision Making In managing this patient's care, I considered his history of shoulder pain, COPD, alcohol use, smoking, GERD, and hypertension. With pre-surgical clearance as the primary objective, it's essential to ensure the patient's alcohol use is minimized to protect liver function and to foster smoking cessation to optimize respiratory status post-surgery. The stable cardiac status, confirmed by normal EKG findings, reassures surgical candidacy contingent on pulmonary clearance. The current medication regimen remains suitable, targeting symptom control for GERD and COPD, with no immediate modifications. The goal is a successful surgical outcome, with comprehensive interdisciplinary clearance ensuring medical readiness. [facility] Medical History Recurrent dislocation, right shoulder Depression, major, recurrent Difficulty sleeping Chronic GERD Lipid disorder Alcoholism LFT elevation Surgical History History of esophagogastroduodenoscopy (EGD) Hx of colonoscopy No pertinent past surgical history Family History Father No problems noted. Mother No problems noted. Social History Household Members: None Housing: Apartment Do you presently have visiting nurse or other home services: No Alcohol intake: current Alcohol intake frequency: 3 or more drinks per day Alcohol type: beer Patient Tobacco Use Status: Current everyday Tobacco user Cigarette Packs Per Day: 2 e-Cigarette/Vaping Use: Never Used service: No Current occupational status: retired Cognitive needs: No Hearing needs: No Vision needs: Yes Questionnaire Thrive Questionnaire Date Thrive assessed: 01/31/25 MARTIN-7 AMB Questionnaire MARTIN-7 Date MARTIN - 7 assessed: 01/31/25 Source: Developed by Drs. Ba Harris, Cindy Gerardo, Darien Siddiqui and colleagues, with an educational avelino from [employer]. Review of Systems Const Denies chills and Denies fever(s) ENT Denies epistaxis and Denies nasal discharge Card Denies chest pain Resp Denies chest congestion, Denies cough and Denies hemoptysis GI Denies diarrhea and Denies nausea Skin/Breast Denies rash Neuro Reports no additional complaints Psych Reports no additional complaints Endo Reports no additional complaints Physical exam (Primary Care) Vital Signs: Last Vital Signs Pulse 80 06/02/25 13:01 BP 138/78 06/02/25 13:01 Pulse Ox 98 06/02/25 13:01 BMI result Body Mass Index 22.0 Tobacco/Smoking Status: Tobacco use Status Tobacco use date assessed 01/31/25 06/02/25 13:01 Patient Tobacco Use Status Current everyday Tobacco 06/02/25 13:01 e-Cigarette/Vaping Use Never Used 06/02/25 13:01 Thrive Assessment: Date of Thrive Assessment Date Thrive assessed 01/31/25 06/02/25 13:01 Const General: cooperative, comfortable and no acute distress Orientation/consciousness: patient oriented x3 HENMT Head: Yes normocephalic Eyes General: appearance normal, both eyes and all related structures Neck Neck: Yes supple Resp Effort & Inspection: normal respiratory effort, no cough and no stridor Cardio Other: Rhythm: regular rhythm Heart sounds: S1 normal heart sound present and S2 normal heart sound present Skin General skin exam: turgor normal Neuro General: patient oriented x3, tone normal and moves all extremities Extrem Right lower extremity: no edema Left lower extremity: no edema Office Procedures EKG 32082-[id number], Complete Coding Level of Care Code Est Pt Level 5 (53570) Diagnoses Pre-op evaluation Z01.818 Rotator cuff insufficiency of right shoulder M25.311 Chronic GERD K21.9 Panlobular emphysema J43.1 COPD type: emphysema Emphysema type: panlobular Alcoholic peripheral neuropathy G62.1 Tobacco dependence F17.200 CPT Codes EKG - CPT: 58645-Ylzwwqeqffrzinihk, Complete ([id number]) Time Spent (min) 40 Comment Reviewing chart/previous labs/vkhx-ay-ropx/EKG/coordination of care Assessment & Plan Assessment & Plan (1) Pre-op evaluation: Code(s): Z01.818 - Encounter for other preprocedural examination Category: Medical (2) Rotator cuff insufficiency of right shoulder: Code(s): M25.311 - Other instability, right shoulder Category: Medical (3) Chronic GERD: Code(s): K21.9 - Gastro-esophageal reflux disease without esophagitis Category: Medical (4) COPD (chronic obstructive pulmonary disease): Code(s): J44.9 - Chronic obstructive pulmonary disease, unspecified Category: Medical Qualifiers: COPD type: emphysema Emphysema type: panlobular Qualified Code(s): J43.1 - Panlobular emphysema (5) Alcoholic peripheral neuropathy: Code(s): G62.1 - Alcoholic polyneuropathy Category: Medical (6) Tobacco dependence: Code(s): F17.200 - Nicotine dependence, unspecified, uncomplicated Category: Medical Plan Chief Complaint The patient is undergoing evaluation and clearance for upcoming right shoulder surgery. History The patient is a 60-year-old male presenting with pre-surgical evaluation. Right Shoulder Pain: - The patient reports bilateral shoulder pain, with a primary focus on the right shoulder, which is scheduled for surgical repair. - The shoulder pain affects his range of motion, particularly when bending and although movement is possible, it is painful. - No history of recent trauma or exacerbating injury reported. Smoking History: - The patient maintains a history of smoking, with cessation attempts discussed. - Last reported cigarette use was on Thursday prior to the visit. Alcohol Overuse: - The patient has a longstanding history of alcohol overuse with recent efforts to reduce consumption. - Last reported alcohol intake was beer consumed on the prior Thursday. - Reports experiencing headaches associated with drinking, prompting him to consider cessation. Chronic Obstructive Pulmonary Disease (COPD): - The patient has a history of COPD and uses a Symbicort inhaler. - No recent exacerbations or respiratory complaints were reported. Gastroesophageal Reflux Disease (GERD): - The patient has a history of chronic GERD managed with omeprazole 20 mg BID. - No current symptoms of nausea or vomiting reported. Pre Hypertension: - Current blood pressure reading was 138/78 mmHg. Medical History: - Chronic Obstructive Pulmonary Disease (COPD) - Gastroesophageal Reflux Disease (GERD) - pre Hypertension - Longstanding alcohol overuse - smoker Diagnostic Results: - Labs: Liver enzymes were within normal limits during the last check in January. - Tests: Electrocardiogram (EKG) performed today showed normal sinus rhythm with no acute findings. Medications - Omeprazole 20 mg BID for GERD - Vitamin D supplementation - Symbicort inhaler for COPD Problem List - Pre-surgical evaluation for Right Shoulder Pain - Smoking - Alcohol Overuse - Chronic Obstructive Pulmonary Disease (COPD) - Gastroesophageal Reflux Disease (GERD) - Hypertension Plan - The patient plans to reduce alcohol consumption to mitigate headaches and lower stress on the liver pre-surgery. Risks of continued alcohol use discussed in the context of surgery. - Continued support for smoking cessation was provided, encouraging complete cessation to enhance surgical outcomes. - The patient will proceed with pulmonary services appointment on the for pre-surgical clearance. - Right shoulder surgery is confirmed and scheduled for June 30. - An orthopedic visit is arranged for June 22 to finalize surgical preparations. - Follow-up diagnostic labs will be undertaken to re-evaluate liver enzymes. Patient is stable for right shoulder surgery Medical Decision Making In managing this patient's care, I considered his history of shoulder pain, COPD, alcohol use, smoking, GERD, and hypertension. With pre-surgical clearance as the primary objective, it's essential to ensure the patient's alcohol use is minimized to protect liver function and to foster smoking cessation to optimize respiratory status post-surgery. The stable cardiac status, confirmed by normal EKG findings, reassures surgical candidacy contingent on pulmonary clearance. The current medication regimen remains suitable, targeting symptom control for GERD and COPD, with no immediate modifications. The goal is a successful surgical outcome, with comprehensive interdisciplinary clearance ensuring medical readiness. Orders: Orders Complete Blood Count Auto Diff Today G62.1 - Alcoholic polyneuropathy, J43.1 - Panlobular emphysema, K21.9 - Gastro-esophageal reflux disease without esophagitis, K70.30 - Alcoholic cirrhosis of liver without ascites, M25.311 - Other instability, right shoulder, Z01.818 - Encounter for other preprocedural examination Comprehensive Met. Panel Today G62.1 - Alcoholic polyneuropathy, J43.1 - Panlobular emphysema, K21.9 - Gastro-esophageal reflux disease without esophagitis, K70.30 - Alcoholic cirrhosis of liver without ascites, M25.311 - Other instability, right shoulder, Z01.818 - Encounter for other preprocedural examination LDL Cholesterol Direct Today G62.1 - Alcoholic polyneuropathy, J43.1 - Panlobular emphysema, K21.9 - Gastro-esophageal reflux disease without esophagitis, K70.30 - Alcoholic cirrhosis of liver without ascites, M25.311 - Other instability, right shoulder, Z01.818 - Encounter for other preprocedural examination
[2025-06-02 13:01] VITALS: BP 138/78; PULSE 80; O2SAT 98; BMI 22.0
== END 2025-06-02 13:47 | disposition home or self-care (01) ==
LOC: HO.HMCC 12:50
PROVIDERS: PCP Internal Medicine; Visit Provider Internal Medicine
DX: J43.1 Panlobular emphysema (principal); M25.311 Other instability, right shoulder; Z01.818 Encounter for other preprocedural examination; K21.9 Gastro-esophageal reflux disease without esophagitis; G62.1 Alcoholic polyneuropathy; F17.200 Nicotine dependence, unspecified, uncomplicated

== ENCOUNTER 2025-06-02 12:49 | Outpatient (REF) | payer MEDICARE, MEDICAID, SELFPAY ==
[2025-06-02 16:22] LABS: MANUAL DIFF FLAG NO
[2025-06-02 16:35] LABS: Hematocrit 45.4 % (42.0-52.0); Hemoglobin 15.4 g/dl (14.0-18.0); Imm Gran Abs Auto 0.02 X10*3/uL (0.00-0.03); Imm Gran Pct Auto 0.2 % (0.0-0.4); Lymphocytes Absolute Auto 1.9 X10*3/uL (1.2-4.9); Mean Corpuscular HGB Conc 33.9 g/dl (31.0-36.0); Mean Corpuscular Hemoglobin 30.3 pg (27.0-33.0); Mean Corpuscular Volume 89.4 fL (80.0-98.0); NRBC Abs Auto 0.000 X10*3/uL (0.0-0.012); NRBC Pct Auto 0.0 /100WBC (0.0-0.2); Platelet Count 170 X10*3/uL (160-400); Red Blood Count 5.08 X10*6/uL (4.60-5.80); White Blood Count 8.4 X10*3/uL (4.8-10.8)
[2025-06-02 16:55] LABS: Alanine Aminotransferase 33 U/L (0-40); Albumin Level 4.6 g/dL (3.5-5.0); Alkaline Phosphatase 67 U/L (39-117); Anion Gap 14 (12-20); Aspartate Amino Transferase 35 U/L (5-37); Blood Urea Nitrogen 15 mg/dL (9-16); Calcium 9.1 mg/dL (8.4-10.2); Carbon Dioxide 22 mmol/L (22-29); Chloride 104 mmol/L (96-108); Estimated Glomerular Filt Rate > 60; Potassium 3.9 mmol/L (3.3-5.1); Sodium 136 mmol/L (135-145); Total Protein 7.2 g/dL (6.5-8.0)
== END 2025-06-02 12:50 | disposition home or self-care (01) ==
LOC: HO.HMGCLDS 12:49
PROVIDERS: PCP Internal Medicine; Visit Provider Internal Medicine
DX: Z01.818 Encounter for other preprocedural examination (principal); M25.311 Other instability, right shoulder; K21.9 Gastro-esophageal reflux disease without esophagitis; K70.30 Alcoholic cirrhosis of liver without ascites; G62.1 Alcoholic polyneuropathy; J43.1 Panlobular emphysema; E78.5 Hyperlipidemia, unspecified; F17.200 Nicotine dependence, unspecified, uncomplicated; Z71.6 Tobacco abuse counseling
CPT/HCPCS: 36415; 80053; 83721; 85025; 93005; 99212

== ENCOUNTER 2025-06-07 14:14 | Outpatient (AMB) | payer MEDICARE, SELFPAY ==
--- NOTE | 2025-06-07 14:21 | MHC.OFFVIS ---
Vital Signs 06/07/25 14:22 Height 5 ft 10 in Weight 151 lb 0.266 oz BMI 21.7 BP 130/80 Blood Pressure Location Lt brachial Position Sitting Pulse 73 Pulse Source Pulse Oximeter Pulse Oximetry (%) 99 Oxygen Delivery Method Room Air Intake Visit Reasons: COPD/Shoulder Arthroscopy w/Mini Open RCR Intake Note: pt is here for pre-op clearance- 07/05/25 c ortho,pt states his breathing is doing well. Early Breastfeeding Care Specialist Required: No Allergies bee pollen (BEE STINGS) Allergy (Unknown, Verified 06/07/25 14:45) HIVES poison tara extract Allergy (Verified 06/07/25 14:45) Hives Medication List - Last Reconciled 06/07/25 by Marvin Pyle MD albuterol sulfate 90 mcg/actuation 1 puff inhalation QID PRN Breo Ellipta 200-25 mcg/dose (fluticasone furoate-vilanterol) 1 inh inhalation DAILY 30 days NS budesonide-formoterol 160-4.5 mcg/actuation 1 inh inhalation BID cholecalciferol (vitamin D3) 25 mcg PO DAILY 90 days diclofenac sodium 1% 4 grams topical BID ipratropium-albuterol 0.5 mg-3 mg(2.5 mg base)/3 mL mL inhalation TID PRN omeprazole 20 mg PO BID 90 days Do you need a note to return to daycare/school/sports/work: No HPI HPI COPD/Shoulder Arthroscopy w/Mini Open RCR: Details: THIS 60 YEARS OLD GENTLEMAN IS BEING SEEN FOR THE 1ST TIME, MAINLY FOR PREOP CLEARANCE, HE WILL BE UNDERGOING RIGHT SHOULDER ARTHROSCOPY. HE HAS HISTORY OF SMOKING SINCE AGE 7 OR 8, SMOKES ABOUT 2 PACKS OF CIGARETTES A DAY, HE NOTHING ELSE TO DO. HE SAY IS HE ORDERS HIS OWN CIGARETTE PACKS ONLINE , AND HAS TO PAY ONLY $ 5 PER PACK. HE HAS SMOKING-RELATED MILD COUGH, BUT DENIES ANY ATTACKS OF WHEEZING. HE IS NOT SURE IF HE HAD ANY PULMONARY FUNCTION TEST, I DO NOT SEE IT IN OUR HOSPITAL SYSTEM. HE HAS BEEN PRESCRIBED BREO ELLIPTA, SYMBICORT, IPRATROPIUM-ALBUTEROL SOLUTION FOR THE NEBULIZER USE. BUT NOT USING REGULARLY. HE USES THE NEBULIZER ONLY ONCE IN A WHILE IF HE HAS INCREASED SHORTNESS OF BREATH. SIMILARLY HE IS ALSO USING THE INHALERS ONLY NEEDED. HE IS UNEMPLOYED, LIVES ALONE BY HIMSELF, HE SAY IS THAT HE HAS BEEN ON DISABILITY, HE HAS LIMITED CAPACITY TO LEARN, AND CAN NOT HOLD ON TO ANY JOB. SINCE LAST YEAR HE HAS STRAINED HIS RIGHT SHOULDER AFTER A FALL WITH OUTSTRETCHED ARM . IT REMAINS PAINFUL AND HE IS GOING TO HAVE ARTHROSCOPIC EXAMINATION . IN ADDITION TO SMOKING 2 PACKS A DAY HE ALSO CONSUMES PLENTY OF ALCOHOL, MOSTLY BEER, AND HE SAY IS ON AN AVERAGE 6 X 24 OZ CANS ON A DAILY BASIS. 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 [facility] Medical History Recurrent dislocation, right shoulder Depression, major, recurrent Difficulty sleeping Chronic GERD Lipid disorder Alcoholism LFT elevation Surgical History History of esophagogastroduodenoscopy (EGD) Hx of colonoscopy No pertinent past surgical history Family History Father No problems noted. Mother No problems noted. Social History Household Members: None Housing: Apartment Do you presently have visiting nurse or other home services: No Alcohol intake: current Alcohol intake frequency: 3 or more drinks per day Alcohol type: beer Patient Tobacco Use Status: Current everyday Tobacco user Cigarette Packs Per Day: 2 e-Cigarette/Vaping Use: Never Used service: No Current occupational status: retired Cognitive needs: No Hearing needs: No Vision needs: Yes Review of Systems Const All systems reviewed & are unremarkable except as noted in HPI and below Eyes Reports no additional complaints ENT Reports no additional complaints Card Denies chest pain at rest, Denies syncope and Denies irregular heart rhythm Resp Reports as per HPI GI Reports no additional complaints Reports no additional complaints Musc Reports arthralgias (RIGHT SHOULDER AND UPPER EXTREMITY PAIN) Skin/Breast Reports system reviewed and no additional complaints, except as documented Neuro Denies syncope and Reports other (PERIPHERAL NEUROPATHY RELATED TO ALCOHOL ABUSE) Psych Reports no additional complaints Endo Reports no additional complaints Candido/Lymph Reports no additional complaints Aller/Immun Reports no additional complaints Physical Exam Vital Signs: Last Vital Signs Pulse 73 06/07/25 14:22 BP 130/80 06/07/25 14:22 Pulse Ox 99 06/07/25 14:22 Oxygen Delivery Method Room Air 06/07/25 14:22 BMI result Body Mass Index 21.7 Office Procedures Spirometry Testing [place]pirometry [place]: [place] 62183- Spirometry Results Reviewed Results Reviewed: SPIROMETRY PERFORMED TODAY IN THE OFFICE, SHOWS MILD OBSTRUCTIVE AIRWAY DISORDER. CHEST X-RAY 2022, WAS UNREMARKABLE. OXYGENATION IS NORMAL Assessment & Plan Assessment & Plan (1) COPD (chronic obstructive pulmonary disease): Comment: PER SPIROMETRY THIS GENTLEMAN DOES HAVE CHRONIC OBSTRUCTIVE PULMONARY DISORDER. IT IS MILD, CLINICALLY NOT VERY SYMPTOMATIC AT THIS TIME EXCEPT FOR INTERMITTENT COUGH. Code(s): J44.9 - Chronic obstructive pulmonary disease, unspecified Category: Medical Qualifiers: COPD type: emphysema Emphysema type: panlobular Qualified Code(s): J43.1 - Panlobular emphysema Plan: TALKED TO HIM AT LENGTH ABOUT SMOKING AND COPD. COUNSELED TO QUIT SMOKING AND START WITH GRADUAL REDUCTION IN THE NUMBER OF CIGARETTES. HE HAS SYMBICORT 160-4.5 AT HOME AND MAY USE 2 PUFFS B.I.D. , WITH ALBUTEROL HFA 2 PUFFS Q 4-6 HOURS P.R.N. FOR BOUTS OF COUGH OR WHEEZING. (2) Tobacco dependence: Comment: HAS LIFELONG HISTORY OF SMOKING , 2 PACKS A DAY SINCE AGE 7 OR 8. HE IS NOT IN SMOKING CESSATION MOOD RIGHT NOW. Code(s): F17.200 - Nicotine dependence, unspecified, uncomplicated Category: Medical Plan: COUNSELED TO CUT DOWN THE NUMBER OF CIGARETTES AND WITH THE GOAL TO QUIT COMPLETELY. EDUCATED ABOUT THE RISKS OF CONTINUED SMOKING, ESPECIALLY COPD AND LUNG CANCER. PATIENT IS REFERRED TO ANNUAL LUNG SCREENING PROGRAM. Plan *PRE-OP CLEARANCE : FROM PULMONARY POINT OF VIEW HE IS CLEARED TO UNDERGO THE ORTHOPEDIC SURGERY ON THE RIGHT SHOULDER . POSTOPERATIVELY, HE MAY NEED TO BE TREATED WITH ALBUTEROL UPDRAFT Q.4-6 HOURS P.R.N.. Orders: Orders AMB Spirometry Testing Today Annie Pena, J44.1 - Chronic obstructive pulmonary disease with (acute) exacerbation Referrals Lung Cancer Screening Referral Marvin Pyle MD F17.200 - Nicotine dependence, unspecified, uncomplicated, J43.1 - Panlobular emphysema Coding Level of Care Code New Pt Level 3 (98952) Diagnoses Panlobular emphysema J43.1 COPD type: emphysema Emphysema type: panlobular Tobacco dependence F17.200 CPT Codes Spirometry - CPT: 41357- Spirometry ([id number])
[2025-06-07 14:22] VITALS: BP 130/80; PULSE 73; O2SAT 99; BMI 21.7
--- OUTSIDE RECORDS SUMMARY | 2025-06-07 15:13 | XMS_ITS | Clinical Summary ---
Author Organization [address] [place] [address] Address [address] [place] [address] Phone Care Team Providers Care Medical Records Clerk Name Role Phone Yoseph Syed MD Primary Care Provider [phone] Allergies No known active allergies Medications diclofenac (Voltaren Arthritis Pain) 1 % topical gel Apply 4 g topically 2 (two) times a day. 240 g 1 5 06/09/20 25 Active Encounters Date Type Department Care Team Description 04/19/2025 Telephone Orthopedic Surgery [facility] [address] [phone] Ozzy Orellana DPM 04/10/2025 10:15 AM EDT Consult Orthopedic [facility] [address] [phone] Ozzy Orellana DPM Arthritis of both feet [...] to complete this topic Insurance MEDICAID - [place] MEDICARE [facility] Care Teams Medical Records Clerk Relationship Specialty Start Date End Date Yoseph Syed MD [address] [place] [address] PCP - General Internal Medicine 02/22/25
== END 2025-06-07 15:01 | disposition home or self-care (01) ==
LOC: HO.HPS 14:15
PROVIDERS: PCP Internal Medicine; Referring Provider Internal Medicine; Visit Provider Internal Medicine
DX: J43.1 Panlobular emphysema (principal); F17.200 Nicotine dependence, unspecified, uncomplicated
CPT/HCPCS: 94010; 99203

== ENCOUNTER → 2025-06-07 14:14 | Outpatient (BNVA) | payer MEDICARE, SELFPAY | PROVIDERS: PCP Internal Medicine; Referring Provider Internal Medicine; Visit Provider Internal Medicine | DX: J43.1 Panlobular emphysema (principal); F17.200 Nicotine dependence, unspecified, uncomplicated | CPT/HCPCS: 94010; 99202 ==

== ENCOUNTER 2025-06-27 11:23 | Outpatient (REF) | payer OTHER, SELFPAY ==
--- OUTSIDE RECORDS SUMMARY | 2025-06-27 13:50 | XMS_ITS | Clinical Summary ---
Author Organization [address] [facility] Address [address] [place] [address] Phone Care Team Providers Care Make Up Operator Name Role Phone Yoseph Syed MD Primary Care Provider [phone] Allergies No known active allergies Medications diclofenac (Voltaren Arthritis Pain) 1 % topical gel Apply 4 g topically 2 (two) times a day. 240 g 1 5 06/09/20 25 Encounters Date Type Department Care Team Description 04/19/2025 Telephone Orthopedic Surgery [facility] [address] [phone] Ozzy Orellana DPM 04/10/2025 10:15 AM EDT Consult Orthopedic [facility] [address] [phone] Ozzy Orellana DPM Arthritis of both feet [...] to complete this topic Insurance [place]ID - [place] MEDICARE [facility] Care Teams Make Up Operator Relationship Specialty Start Date End Date Yoseph Syed MD [address] [place] [id number] PCP - General Internal Medicine 02/22/25
[2025-06-28 03:19] LABS: Syphilis Screen Nonreactive (Nonreactive)
[2025-06-28 03:32] LABS: HBS Num1 0.09 mIU/mL (0-7.99); HIV Num 1 0.05 S/CO (0.00-0.99); ~HepC Num1 0.08 S/CO (0.00-0.79); ~Hepatitis B Surface Antibody NONREACTIVE (Nonreactive); ~Hepatitis C Antibody Nonreactive (Nonreactive)
== END 2025-06-27 11:24 | disposition home or self-care (01) ==
LOC: HO.HMGCLDS 11:23
PROVIDERS: PCP Internal Medicine; Visit Provider Internal Medicine
DX: Z11.3 Encounter for screening for infections with a predominantly sexual mode of transmission (principal); Z11.4 Encounter for screening for human immunodeficiency virus [HIV]; Z11.8 Encounter for screening for other infectious and parasitic diseases; Z01.84 Encounter for antibody response examination
CPT/HCPCS: 36415; 86695; 86696; 86706; 86780; 86803; 87389

== ENCOUNTER 2025-06-30 09:41 | Day surgery (SDC) | payer OTHER, SELFPAY ==
--- OUTSIDE RECORDS SUMMARY | 2025-04-26 09:39 | XMS_ITS | Encounter Summary ---
Author Organization [facility] Address [address] [place] [address] Care Team Providers Care Financial Solutions Advisor Name Role Phone Yoseph Syed MD Primary Care Provider [phone] Encounter Details Date Type Department Care Team (Late st Contact Info) Description 04/19/2025 Telephone Orthopedic Surgery - [place] [address] [phone] Ozzy Orellana, DPM [address] [address] Social History Tobacco Use Types Packs/Day Years Used Date Smoking Tobacco: Never Assessed Sex and Gender Information Value Date Recorded Sex Assigned at Not on file Legal Sex Male 9:02 AM EDT Gender Identity Not on file Sexual Orientation Not on file documented as of this encounter Progress Notes * Nena Jewell MA - 04/24/2025 10:51 AM EDT Patient can purchase OTC IF HE NEED IT * Juli Bradley - 04/19/2025 2:56 PM EDT Diclofenac not covered by insurance documented in this encounter Plan of Treatment Not on file documented as of this encounter Visit Diagnoses Not on filedocumented in this encounter Care Teams Financial Solutions Advisor Relationship Specialty Start Date End Date Yoseph Syed MD [address] [place] [address] [place] [phone] PCP - General Internal Medicine 02/22/25 documented as of this encounter
[2025-06-09 10:29] VITALS: BMI 22.0
[2025-06-09 10:34] VITALS: BP 128/76; PULSE 67; RESP 20; O2SAT 99
[2025-06-09 11:36] LABS: INTERNATIONAL NORM RATIO 1.0 (0.9-1.1); Prothrombin Time 10.9 SEC (10.9-12.4)
--- NOTE | 2025-06-28 10:48 | HO.ANESPROP2 ---
Documented by User: Shalini Perdomo NP 06/28/25 10:49 HPI - Anesthesia Eval Consult details Narrative: 60 yr old male for right arthroscopy with mini Open RCR seen in PAT by RORY 05/2025 No CP/SOB with minimal physical activity No recent illness Medically optimized by PCP 06/02/25 Optimized by pulmonary 06/02/25 COPD: follows with pulmonary, inconsistent use of ICS/LABA, using albuterol daily Alcoholic liver cirrhosis: will update INR, LFTs stable PMFSH Active Problems Active Problems: All Active Problems Screen for STD (sexually transmitted disease) (Acute) Rotator cuff insufficiency of right shoulder (Acute) Right shoulder pain (Acute) Plantar fasciitis of right foot (Acute) Colon cancer screening (Acute) Shoulder pain, left (Acute) Tremor of both hands (Acute) Alcohol abuse (Acute) Varicose veins of left lower extremity with inflammation (Acute) COPD (chronic obstructive pulmonary disease) (Acute) Varicose veins of right lower extremity with inflammation (Acute) Alcoholic peripheral neuropathy (Acute) COPD exacerbation (Acute) Positive colorectal cancer screening using Cologuard test (Acute) Distal paresthesia (Acute) Hordeolum externum right lower eyelid (Acute) Epidermoid cyst of finger of left hand (Acute) Liver cirrhosis, alcoholic (Acute) Nicotine dependence, cigarettes, uncomplicated (Acute) Recurrent dislocation, right shoulder (Acute) Depression, major, recurrent (Acute) Difficulty sleeping (Acute) Chronic GERD (Acute) Lipid disorder (Acute) Alcoholism (Acute) LFT elevation (Acute) Past Medical History Medical History COPD (chronic obstructive pulmonary disease) Liver cirrhosis, alcoholic Tremor of both hands Nicotine dependence, cigarettes, uncomplicated Recurrent dislocation, right shoulder Depression, major, recurrent Difficulty sleeping Chronic GERD Lipid disorder Alcoholism LFT elevation Family History Family History Father No problems noted. Mother No problems noted. Family history of problems with anesthesia: No Surgical History Surgical History Hx of varicose vein ligation History of esophagogastroduodenoscopy (EGD) Hx of colonoscopy History of Problems with Anesthesia: No Social History Social History Household Members: None Housing: Apartment Are you a primary adult daycare coordinator to a significant other at home: No Do you presently have visiting nurse or other home services: No Alcohol intake: current Alcohol intake frequency: 3 or more drinks per day Alcohol type: beer Patient Tobacco Use Status: Current everyday Tobacco user Tobacco use type: Cigarette Cigarette Packs Per Day: 2 Cigarettes Per Day: 40.0 e-Cigarette/Vaping Use: Never Used Use of substances other than those prescribed or required for medical reasons: No Have you been hit, kicked, punched, or otherwise hurt by someone within the past year? If so, by whom?: No Spiritual Healthcare Practices: no Scientology Healthcare Practices: no Cultural Healthcare Practices: no Are you DNR?: No Advance Directives: No Advance Directives Information Provided: Yes Advance Directives on File: No Poor oral hygiene: No service: No Current occupational status: retired Cognitive needs: No Hearing needs: No Vision needs: Yes Meds Allergies Allergy/AdvReac Type Severity Reaction Status Date / Time bee pollen (BEE STINGS) Allergy Severe Anaphylaxis Verified 06/30/25 10:17 poison tara extract Allergy Intermediate Hives Verified 06/30/25 10:17 Home Medications ?Medication ?Instructions ?Recorded ?Confirmed ?Last Taken ?Type albuterol sulfate 90 mcg/actuation 1 puff inhalation QID PRN wheezing 06/07/25 06/09/25 Unknown History aerosol inhaler diclofenac sodium 1 % topical gel 4 g topical BID 06/07/25 06/09/25 Unknown History ipratropium 0.5 mg-albuterol 3 mg 3 ml inhalation TID PRN wheezing 06/07/25 06/09/25 Unknown History (2.5 mg base)/3 mL nebulization soln Exam Height,Weight and Vital Signs: Height 5 ft 10 in Weight 69.4 kg Last Vital Signs Pulse 67 06/09/25 10:34 Resp 20 06/09/25 10:34 BP 128/76 06/09/25 10:34 Pulse Ox 99 06/09/25 10:34 O2 Del Method Room Air 06/09/25 10:34 Pertinent Lab Results Pertinent Lab Results: Laboratory Tests 06/09/25 11:22 PT 10.9 INR 1.0 Laboratory Tests 08/15/25 13:20 WBC 8.4 Hgb 15.4 Hct 45.4 Plt Count 170 Sodium 136 Potassium 3.9 Chloride 104 Carbon Dioxide 22 BUN 15 Creatinine 1.02 Narrative Narrative: EKG 05/2025 NSR @ 70 Assessment and Plan Assessment Anesthesia Assessment: Chart Reviewed Final Anesthetic Review Family History of Problems with Anesthesia: No History of Problems with Anesthesia: No Documented by User: Diana Olvera MD 06/30/25 10:19 [facility] Past Medical History Medical History COPD (chronic obstructive pulmonary disease) Liver cirrhosis, alcoholic Tremor of both hands Nicotine dependence, cigarettes, uncomplicated Recurrent dislocation, right shoulder Depression, major, recurrent Difficulty sleeping Chronic GERD Lipid disorder Alcoholism LFT elevation Family History Family History Father No problems noted. Mother No problems noted. Surgical History Surgical History Hx of varicose vein ligation History of esophagogastroduodenoscopy (EGD) Hx of colonoscopy Social History Social History Household Members: None Housing: Apartment Are you a primary adult daycare coordinator to a significant other at home: No Do you presently have visiting nurse or other home services: No Alcohol intake: current Alcohol intake frequency: 3 or more drinks per day Alcohol type: beer Patient Tobacco Use Status: Current everyday Tobacco user Tobacco use type: Cigarette Cigarette Packs Per Day: 2 Cigarettes Per Day: 40.0 e-Cigarette/Vaping Use: Never Used Use of substances other than those prescribed or required for medical reasons: No Have you been hit, kicked, punched, or otherwise hurt by someone within the past year? If so, by whom?: No Spiritual Healthcare Practices: no Scientology Healthcare Practices: no Cultural Healthcare Practices: no Are you DNR?: No Advance Directives: No Advance Directives Information Provided: Yes Advance Directives on File: No Poor oral hygiene: No service: No Current occupational status: retired Cognitive needs: No Hearing needs: No Vision needs: Yes Meds Allergies Allergy/AdvReac Type Severity Reaction Status Date / Time bee pollen (BEE STINGS) Allergy Severe Anaphylaxis Verified 06/30/25 10:17 poison tara extract Allergy Intermediate Hives Verified 06/30/25 10:17 Home Medications ?Medication ?Instructions ?Recorded ?Confirmed ?Last Taken ?Type albuterol sulfate 90 mcg/actuation 1 puff inhalation QID PRN wheezing 06/07/25 06/09/25 Unknown History aerosol inhaler diclofenac sodium 1 % topical gel 4 g topical BID 06/07/25 06/09/25 Unknown History ipratropium 0.5 mg-albuterol 3 mg 3 ml inhalation TID PRN wheezing 06/07/25 06/09/25 Unknown History (2.5 mg base)/3 mL nebulization soln Exam Airway Mallampati Class: II TM Dist: >3cm Neck ROM: Limited Heart: rrr Lungs: cta Assessment and Plan Assessment Anesthesia Assessment: Anesthesia Plan Discussed Final Anesthetic Review NPO: Yes ASA Class: III Final Preanesthetic Review: No Changes in Pt Med Stat, Meds/Allgs Chart Reviewed, Consent Obtained/Reviewed and Anes Risks/Benef Reviewed Patient Risk: Intermediate Procedure Risk: Intermediate Anesthetic Plan Anesthetic Plan: GA and Agree w/ Assess. and Plan Disposition: Standard PACU
[2025-06-30] VITALS (7 sets, daily range): BP systolic 126–148; BP diastolic 83–91; PULSE 68–87; RESP 12–18; TEMP 36–36.2; O2SAT 94–98; BMI 20.6
[2025-06-30] MEDS: Lactated Ringers 1,000 ML 100 ML IVCONT (10:16)
--- NOTE | 2025-06-30 13:15 | PM.OP ---
Brief Operative Note Date of Service: 06/30/25 Pre-op diagnosis: Right shoulder impingement syndrome, right shoulder acromioclavicular joint arthritis, right shoulder rotator cuff tear Post-op diagnosis: same Procedure: Right shoulder arthroscopic distal clavicle excision, right shoulder arthroscopic acromioplasty, right shoulder mini open rotator cuff repair Implants: 1 suture anchor ([employer] Twinfix anchor with #2 Ultrabraid suture) Surgeon: Chaz Mckee MD Anesthesia: GETA and regional Was an Traffic Technician used for this Procedure?: No Estimated blood loss (mL): 20 Pathology: none sent Condition: stable Disposition: PACU
--- NOTE | 2025-06-30 13:16 | P.OP_ITS ---
Operative Note Operative Note Date of Service: 06/30/25 Narrative: After the patient was identified as Adolph Guerra and his right shoulder was initialed by myself the patient was brought to the holding area where a right shoulder interscalene regional block was performed by the anesthesiologist in routine fashion. The patient was then brought to the operating room where general anesthesia was induced by the anesthesiologist in routine fashion. The patient was given 2 g of IV Ancef preoperatively for infection prophylaxis. Examination under anesthesia of the patient's right shoulder showed full passive range of motion of the patient's right shoulder when compared to the left. The patient was gently positioned in the beach chair position with all bony prominences well padded. The patient's right shoulder region and upper extremity were prepped and draped in sterile fashion. A formal time-out was completed. A #11 scalpel blade was used to make a posterior portal 2 cm inferior and 1 cm medial to the posterolateral corner of the acromion. Blunt trocar technique was used to enter the glenohumeral joint in routine fashion. An anterior portal was made just lateral to the coracoid process after proper positioning was confirmed using a spinal needle. Diagnostic arthroscopy showed minimal degenerative changes of the glenoid and humeral head articular surfaces. There was a full-thickness tear of the supraspinatus tendon. There was no evidence of injury to the biceps tendon or its insertion onto the glenoid. There was no inflammation of the anterior joint capsule. The arthroscope was then placed from the posterior portal into the subacromial space. A lateral portal was made 2 fingerbreadths lateral to the anterior lateral corner of the acromion. The ArthroCare Wand was used to ablate soft tissues along the undersurface of the acromion as well as to excise the coracoacromial ligament. There was a sharp spur along the undersurface of the acromion which was removed using the hooded bur. The arthroscope was then placed into the lateral portal and the acromioplasty was completed with the bur in the posterior portal using the posterior aspect of the acromion as a cutting block. The ArthroCare Wand was then brought in through the anterior portal and was used to ablate soft tissues along the acromioclavicular joint and distal clavicle. The posterior and superior ligamentous structures were left intact. A distal clavicle excision of 8 mm was performed using the hooded bur. Any remaining bursal tissue was removed using the arthroscopic shaver. The subacromial space was irrigated and then drained. All arthroscopic instruments were removed. Sterile gloves were changed and the shoulder was once again prepped with Betadine. A #15 scalpel blade was used to extend the lateral portal to the lateral edge of the acromion. The subacromial tissues were dissected using electrocautery down to the superficial deltoid fascia. The trocar split in the anterior raphe of the deltoid was then extended to the lateral edge of the acromion using el ectrocautery and curved Limon scissors. Any remaining bursal tissue was removed using curved Limon scissors. Subacromial and subdeltoid adhesions were bluntly dissected. The undersurface of the acromion was palpated and it was smooth. A #2 Ethibond tag suture was placed into the supraspinatus tendon. The tendon was easily mobilized to its insertion point on the glenoid. The wound was irrigated with copious amounts of normal saline solution. One suture anchor was placed into the greater tuberosity in routine fashion. The rotator cuff repair was then performed using horizontal mattress sutures under minimal tension with the patient's elbow at their side. Following the repair the shoulder was taken through a full range of motion. The repair was stable. The wound was irrigated with copious amounts of normal saline solution. The superficial and deep deltoid fascia were closed with #1 Vicryl [id number] interrupted suture. The wound was once again irrigated. The subcutaneous tissues were closed with 2-0 Vicryl interrupted suture. The skin was closed with 3-0 Prolene subcuticular suture and Steri-Strips. The anterior and posterior portals were closed with 3-0 nylon interrupted suture. Dry sterile dressing was placed over all incisions. The patient's right upper extremity was placed into a sling. The patient was awoken and extubated in the operating room. The patient was transferred to the recovery room in stable condition.
== END 2025-06-30 14:15 | disposition home or self-care (01) ==
PROVIDERS: Nurse Practitioner; Visit Provider Orthopaedic Surgery
PROC: (CPT 23412; principal; 2025-06-30 11:30)
DX: M75.121 Complete rotator cuff tear or rupture of right shoulder, not specified as traumatic (principal); M75.41 Impingement syndrome of right shoulder; M19.011 Primary osteoarthritis, right shoulder; M25.511 Pain in right shoulder; M25.311 Other instability, right shoulder; J44.9 Chronic obstructive pulmonary disease, unspecified; J43.1 Panlobular emphysema; F32.A Depression, unspecified; K21.9 Gastro-esophageal reflux disease without esophagitis; F10.20 Alcohol dependence, uncomplicated; G62.1 Alcoholic polyneuropathy; Z79.51 Long term (current) use of inhaled steroids; Z79.899 Other long term (current) drug therapy; F17.210 Nicotine dependence, cigarettes, uncomplicated
CPT/HCPCS: 23412; 29824; 29826; 36415; 85610; C1713; J0131; J0165; J0665; J0690; J0696; J1100; J2003; J2250; J2371; J2405; J2704; J2795

== ENCOUNTER → 2025-06-30 09:41 | Outpatient (BNV) | payer OTHER, SELFPAY | PROVIDERS: Visit Provider Orthopaedic Surgery | DX: S46.011A Strain of muscle(s) and tendon(s) of the rotator cuff of right shoulder, initial encounter (principal); M75.41 Impingement syndrome of right shoulder; M19.011 Primary osteoarthritis, right shoulder | CPT/HCPCS: 23412; 29824 ==

== ENCOUNTER 2025-07-10 08:20 | Outpatient (AMB) | payer OTHER, SELFPAY ==
[2025-07-10 08:38] VITALS: BP 112/74; PULSE 76; O2SAT 98; BMI 20.8
--- NOTE | 2025-07-10 08:38 | MHC.OFFWIV ---
Intake Vital Signs 07/10/25 08:38 Height 5 ft 10 in Weight 145 lb BMI 20.8 BP 112/74 Blood Pressure Location Lt brachial Position Sitting Pulse 76 Pulse Source Pulse Oximeter Pulse Oximetry (%) 98 Intake Visit Reasons: ep need right shoulder rebandaged Patient Tobacco Use Status: Current everyday Tobacco user Allergies bee pollen (BEE STINGS) Allergy (Severe, Verified 07/10/25 08:39) Anaphylaxis poison tara extract Allergy (Intermediate, Verified 07/10/25 08:39) Hives Do you need a note to return to daycare/school/sports/work: No HPI HPI Comments History of Present Illness Details History of Present Illness - The patient is a 60-year-old male presenting for post-surgical wound care following surgery. - The surgery was performed on the of this month, approximately 10 days ago. - The patient is scheduled for a follow-up appointment on the of this month for stitch removal. - Post-operative instructions included keeping the wound clean and performing gentle exercises. - The patient reports adherence to these instructions, with some difficulty maintaining the bandage in place. -He needs a new dressing on the wound today. - He denies fever, chills, discharge, drainage, numbness, or tingling. Physical Exam General: Cooperative, healthy appearing, comfortable, no acute distress and well developed Orientation: Patient oriented x3 Respiratory: Normal respiratory effort and able to speak in complete sentences. Clear to auscultation bilaterally Cardiovascular: Regular rate and rhythm. Normal S1 and S2 Skin: Small incision with steri strips noted on the right shoulder. Clean, with no discharge. No bleeding or redness noted. Neuro: Sensation intact. Patient was informed and verbally consented to the use of an ambient scribe for clinic note documentation during this visit. [facility] Medical History COPD (chronic obstructive pulmonary disease) Liver cirrhosis, alcoholic Tremor of both hands Nicotine dependence, cigarettes, uncomplicated Recurrent dislocation, right shoulder Depression, major, recurrent Difficulty sleeping Chronic GERD Lipid disorder Alcoholism LFT elevation Surgical History Hx of varicose vein ligation History of esophagogastroduodenoscopy (EGD) Hx of colonoscopy Family History Father No problems noted. Mother No problems noted. Social History Household Members: None Housing: Apartment Are you a primary child daycare worker to a significant other at home: No Do you presently have visiting nurse or other home services: No Alcohol intake: current Alcohol intake frequency: 3 or more drinks per day Alcohol type: beer Patient Tobacco Use Status: Current everyday Tobacco user Tobacco use type: Cigarette Cigarette Packs Per Day: 2 Cigarettes Per Day: 40.0 e-Cigarette/Vaping Use: Never Used service: No Current occupational status: retired Cognitive needs: No Hearing needs: No Vision needs: Yes Review of Systems Const All systems reviewed & are unremarkable except as noted in HPI and below Physical Exam Vital Signs: Last Vital Signs Pulse 76 07/10/25 08:38 BP 112/74 07/10/25 08:38 Pulse Ox 98 07/10/25 08:38 BMI result Body Mass Index 20.8 Assessment & Plan Assessment & Plan (1) Visit for wound care: Plan Most likely healing post op wounds plan - keep area clean and dry - dry sterile dressing applied to the shoulder today in the office - has f/u with surgeon on - follow up with PCP Coding Level of Care Code Est Pt Level 3 (32204) Diagnoses Visit for wound care
--- OUTSIDE RECORDS SUMMARY | 2025-07-10 09:30 | XMS_ITS | Clinical Summary ---
Author Organization 175 [facility] Address [address] [place] [address] Phone Care Team Providers Care Fire Apparatus Engineer Name Role Phone Yoseph Syed MD Primary Care Provider [phone] Allergies No known active allergies Encounters Date Type Department Care Team Description 04/19/2025 Telephone Orthopedic Surgery [facility] [address] [address] Ozzy Orellana DPM 04/10/2025 10:15 AM EDT Consult Orthopedic [facility] [address] [address] Ozzy Oerllana DPM Arthritis of both feet (Primary Dx); [...] this topic Insurance MEDICAID - [place] MEDICARE [facility] Care Teams Fire Apparatus Engineer Relationship Specialty Start Date End Date Yoseph Syed MD [address] [place] [address] PCP - General Internal Medicine 02/22/25
== END 2025-07-10 09:31 | disposition home or self-care (01) ==
PROVIDERS: Visit Provider Physician Assistant Medical
DX: M25.311 Other instability, right shoulder (principal)

== ENCOUNTER → 2025-07-10 08:20 | Outpatient (BNVA) | payer OTHER, SELFPAY | PROVIDERS: Visit Provider Physician Assistant Medical | DX: Z09 Encounter for follow-up examination after completed treatment for conditions other than malignant neoplasm (principal); Z98.890 Other specified postprocedural states | CPT/HCPCS: 99212 ==

== ENCOUNTER 2025-07-13 10:14 | Outpatient (AMB) | payer OTHER, SELFPAY ==
--- NOTE | 2025-07-13 10:27 | MHC.OFFVIS ---
Vital Signs 07/13/25 10:28 Height 5 ft 10 in Weight 145 lb BMI 20.8 Intake Visit Reasons: PO RT shoulder 06/30/25 Intake Note: Adolph is a 60 year old man who presents with complaints of mild intermittent discomfort after undergoing right shoulder rotator cuff repair surgery on 06/30/2025. He denies any fevers or chills. He has been resting his shoulder as per my instructions. Allergies bee pollen (BEE STINGS) Allergy (Severe, Verified 07/13/25 10:31) Anaphylaxis poison tara extract Allergy (Intermediate, Verified 07/13/25 10:31) Hives Medication List - Last Reconciled 07/13/25 by Chaz Mckee MD albuterol sulfate 90 mcg/actuation 1 puff inhalation QID PRN budesonide-formoterol 160-4.5 mcg/actuation 1 inh inhalation BID cholecalciferol (vitamin D3) 25 mcg PO DAILY 90 days diclofenac sodium 1% 4 grams topical BID ipratropium-albuterol 0.5 mg-3 mg(2.5 mg base)/3 mL 3 mL inhalation TID PRN omeprazole 20 mg PO BID 90 days [facility] Medical History COPD (chronic obstructive pulmonary disease) Liver cirrhosis, alcoholic Tremor of both hands Nicotine dependence, cigarettes, uncomplicated Recurrent dislocation, right shoulder Depression, major, recurrent Difficulty sleeping Chronic GERD Lipid disorder Alcoholism LFT elevation Surgical History Hx of varicose vein ligation History of esophagogastroduodenoscopy (EGD) Hx of colonoscopy Family History Father No problems noted. Mother No problems noted. Social History Household Members: None Housing: Apartment Are you a primary care team assistant to a significant other at home: No Do you presently have visiting nurse or other home services: No Alcohol intake: current Alcohol intake frequency: 3 or more drinks per day Alcohol type: beer Patient Tobacco Use Status: Current everyday Tobacco user Tobacco use type: Cigarette Cigarette Packs Per Day: 2 Cigarettes Per Day: 40.0 e-Cigarette/Vaping Use: Never Used service: No Current occupational status: retired Cognitive needs: No Hearing needs: No Vision needs: Yes Physical Exam Vital Signs: BMI result Body Mass Index 20.8 Extrem Other: Right shoulder examination shows that the surgical incisions are healing well, no erythema, minimal discomfort with gentle passive range of motion Assessment & Plan Assessment & Plan (1) Right shoulder pain: Code(s): M25.511 - Pain in right shoulder Category: Medical Plan Mr. Guerra is doing very well after undergoing right shoulder rotator cuff repair surgery on 06/30/2025. His sutures were removed and Steri-Strips placed over his incisions. I did give him a prescription to go to formal physical therapy. [facility]. The do's and don'ts of lifting were discussed at length with the patient. I will hold off on active lifting until he is 8 weeks out from surgery. I will see him back at that time. He will call me prior to that appointment should any questions or concerns arise. Orders: Orders PT Evaluation and Treatment 07/14/25 M25.311 - Other instability, right shoulder Coding Level of Care Code Global (21872) Diagnoses Right shoulder pain M25.511
[2025-07-13 10:28] VITALS: BMI 20.8
== END 2025-07-13 11:00 | disposition home or self-care (01) ==
LOC: HO.HOS 10:15
PROVIDERS: Visit Provider Orthopaedic Surgery
DX: M25.511 Pain in right shoulder (principal)
CPT/HCPCS: 99024

== ENCOUNTER → 2025-07-13 10:14 | Outpatient (BNVA) | payer OTHER, SELFPAY | PROVIDERS: Visit Provider Orthopaedic Surgery | DX: M25.511 Pain in right shoulder (principal); M25.311 Other instability, right shoulder; Z98.890 Other specified postprocedural states | CPT/HCPCS: 99212 ==

== ENCOUNTER 2025-08-24 08:20 | Outpatient (AMB) | payer OTHER, SELFPAY ==
--- NOTE | 2025-08-24 08:24 | A.OFFVIS_ITS ---
Vital Signs 08/24/25 08:25 Height 5 ft 10 in Weight 145 lb BMI 20.8 Intake Visit Reasons: Right shoulder surgery Intake Note: Adolph is a 60 year old man who presents with complaints of mild intermittent discomfort after undergoing right shoulder rotator cuff repair surgery on 06/30/25. The patient states that he noticed a small scab along the medial aspect of his incision which he has been covering with a Band-Aid. He denies any fevers or chills. The patient states that he has not been to physical therapy because he was not contacted after the referral was placed. He continues to do stretching exercises on his own. Allergies bee pollen (BEE STINGS) Allergy (Severe, Verified 08/24/25 08:30) Anaphylaxis poison tara extract Allergy (Intermediate, Verified 08/24/25 08:30) Hives Medication List - Last Reconciled 08/24/25 by Chaz Mckee MD albuterol sulfate 90 mcg/actuation 1 puff inhalation QID PRN budesonide-formoterol 160-4.5 mcg/actuation 1 inh inhalation BID cholecalciferol (vitamin D3) 25 mcg PO DAILY 90 days diclofenac sodium 1% 4 grams topical BID ipratropium-albuterol 0.5 mg-3 mg(2.5 mg base)/3 mL 3 mL inhalation TID PRN omeprazole 20 mg PO BID 90 days [facility] Medical History (Updated 08/11/25 @ 08:12 by Deb Vega PA-C) COPD (chronic obstructive pulmonary disease) Liver cirrhosis, alcoholic Tremor of both hands Nicotine dependence, cigarettes, uncomplicated Recurrent dislocation, right shoulder Depression, major, recurrent Difficulty sleeping Chronic GERD Lipid disorder Alcoholism LFT elevation Surgical History Hx of varicose vein ligation History of esophagogastroduodenoscopy (EGD) Hx of colonoscopy Family History Father No problems noted. Mother No problems noted. Social History Household Members: None Housing: Apartment Are you a primary daycare manager to a significant other at home: No Do you presently have visiting nurse or other home services: No Alcohol intake: current Alcohol intake frequency: 3 or more drinks per day Alcohol type: beer Patient Tobacco Use Status: Current everyday Tobacco user Tobacco use type: Cigarette Cigarette Packs Per Day: 2 Cigarettes Per Day: 40.0 e-Cigarette/Vaping Use: Never Used service: No Current occupational status: retired Cognitive needs: No Hearing needs: No Vision needs: Yes Physical Exam Vital Signs: BMI result Body Mass Index 20.8 Extrem Other: Right shoulder examination shows that the surgical incisions are well healed, there is a small eschar measuring approximately 2 mm x 2 mm along the medial aspect of his middle incision, no surrounding redness, almost full passive range of motion when compared to his left shoulder with minimal discomfort Assessment & Plan Assessment & Plan (1) Right shoulder pain: Code(s): M25.511 - Pain in right shoulder Category: Medical Plan Mr. Guerra continues to do well after undergoing right shoulder rotator cuff repair surgery on 06/30/2025. I did give him a new prescription to go to formal physical therapy. He does have a small scab along the medial aspect of his middle incision most likely due to a suture abscess. The patient was given topical antibiotic cream to apply to the area. He will contact me prior to his follow-up appointment in 6-8 weeks should any questions or concerns arise. Feel free to call me at any time should questions regarding his orthopedic management arise. Coding Level of Care Code Global (17191) Diagnoses Right shoulder pain M25.511
[2025-08-24 08:25] VITALS: BMI 20.8
--- OUTSIDE RECORDS SUMMARY | 2025-08-24 08:42 | XMS_ITS | Clinical Summary ---
Author Organization 175 [facility] Address [address] [place] [address] Phone Care Team Providers Care Steel Spar Operator Name Role Phone Yoseph Syed MD Primary Care Provider [phone] Allergies No known active allergies Social History Tobacco Use Types Packs/Day Years [...] Health Maintenance Due Date Last Done Comments Colorectal Cancer Screening: Colonoscopy 1965 Pneumococcal Vaccine: 50+ Years (1 of 1 - PCV) 2013 Zoster Vaccines (2 of 2) 03/16/2020 01/20/2020 Depression Screening 10/19/2024 Cholesterol Screening (Lipid Panel) 02/22/2025 HIV Screening 02/22/2025 Hepatitis C Screening [...] this topic Insurance [place]ID - [place] MEDICARE [facility] Care Teams Steel Spar Operator Relationship Specialty Start Date End Date Yoseph Syed MD [address] [place] [address] PCP - General Internal Medicine 02/22/25
== END 2025-08-24 08:40 | disposition home or self-care (01) ==
LOC: HO.HOS 08:21
PROVIDERS: Visit Provider Orthopaedic Surgery
DX: M25.511 Pain in right shoulder (principal)
CPT/HCPCS: 99024

== ENCOUNTER → 2025-08-24 08:20 | Outpatient (BNVA) | payer OTHER, SELFPAY | PROVIDERS: Visit Provider Orthopaedic Surgery | DX: M25.511 Pain in right shoulder (principal); T81.41XA Infection following a procedure, superficial incisional surgical site, initial encounter | CPT/HCPCS: 99212 ==

== ENCOUNTER 2025-08-31 15:06 | Outpatient (AMB) | payer OTHER, SELFPAY ==
[2025-08-31 16:28] VITALS: BP 114/82; PULSE 80; TEMP 36.6; O2SAT 100; BMI 20.8
--- NOTE | 2025-08-31 16:28 | MHC.OFFWIV ---
Intake Vital Signs 08/31/25 16:28 Height 5 ft 10 in Weight 145 lb BMI 20.8 BP 114/82 Blood Pressure Location Lt brachial Position Sitting Pulse 80 Pulse Source Pulse Oximeter Temp 97.9 F Temp Source Oral Pulse Oximetry (%) 100 Oxygen Delivery Method Room Air Intake Visit Reasons: EP-rt shoulder pain Intake Note: pt presents with pain and weeping to surgical wound on right shoulder s/p RCT repair sx 06/30/25 Dr Mckee Patient Tobacco Use Status: Current everyday Tobacco user Allergies bee pollen (BEE STINGS) Allergy (Severe, Verified 08/31/25 16:30) Anaphylaxis poison tara extract Allergy (Intermediate, Verified 08/31/25 16:30) Hives Do you need a note to return to daycare/school/sports/work: No HPI HPI Comments History of Present Illness Details History of Present Illness - The patient is a 60-year-old male presenting with a post-surgical wound infection. - The patient underwent surgery on June 30, and subsequently noticed pus at the wound site 2 weeks ago. - Two weeks prior to the visit, the patient observed pus and managed it with home care, including washing and applying a bandage. - He was able to squeeze out the discharge and cleaned the area. - The wound is currently dry with no active pus, but the patient seeks advice on further management. - The patient has no history of diabetes and reports no medication allergies. - He denies fever, chills, numbness, tingling, joint pain, arm pain or neck pain. Physical Exam General: Cooperative, healthy appearing, comfortable, no acute distress and well developed Orientation: Patient oriented x3 Limitations: No limitations Respiratory: Normal respiratory effort and able to speak in complete sentences. Clear to auscultation bilaterally Cardiovascular: Regular rate and rhythm. Normal S1 and S2. Pulses are 2+ on the UE. Skin: Well healing wound on the right anterior shoulder. [place] skin with scarring noted. No warmth, induration, fluctuance or swelling noted. No streaking noted, bleeding or discharge noted. Neuro: Sensation is intact. Extremities: Normal to inspection. FROM of the right shoulder. Supination and pronation is intact. Strength is 5/5 on the UE. Hand adjunct instructor of women's studies is intact. Patient was informed and verbally consented to the use of an ambient scribe for clinic note documentation during this visit. [facility] Medical History (Updated 08/11/25 @ 08:12 by Deb Vega PA-C) COPD (chronic obstructive pulmonary disease) Liver cirrhosis, alcoholic Tremor of both hands Nicotine dependence, cigarettes, uncomplicated Recurrent dislocation, right shoulder Depression, major, recurrent Difficulty sleeping Chronic GERD Lipid disorder Alcoholism LFT elevation Surgical History Hx of varicose vein ligation History of esophagogastroduodenoscopy (EGD) Hx of colonoscopy Family History Father No problems noted. Mother No problems noted. Social History Household Members: None Housing: Apartment Are you a primary adult live in caregiver to a significant other at home: No Do you presently have visiting nurse or other home services: No Alcohol intake: current Alcohol intake frequency: 3 or more drinks per day Alcohol type: beer Patient Tobacco Use Status: Current everyday Tobacco user Tobacco use type: Cigarette Cigarette Packs Per Day: 2 Cigarettes Per Day: 40.0 e-Cigarette/Vaping Use: Never Used service: No Current occupational status: retired Cognitive needs: No Hearing needs: No Vision needs: Yes Review of Systems Const All systems reviewed & are unremarkable except as noted in HPI and below Physical Exam Vital Signs: Last Vital Signs Temp 97.9 F 08/31/25 16:28 Pulse 80 08/31/25 16:28 BP 114/82 08/31/25 16:28 Pulse Ox 100 08/31/25 16:28 Oxygen Delivery Method Room Air 08/31/25 16:28 BMI result Body Mass Index 20.8 Assessment & Plan Assessment & Plan (1) Wound of shoulder: Code(s): S41.009A - Unspecified open wound of unspecified shoulder, initial encounter Qualifiers: Encounter type: initial encounter Laterality: right Qualified Code(s): S41.001A - Unspecified open wound of right shoulder, initial encounter Plan Most likely Post-Surgical Wound Infection plan - keep area clean and dry - Prescribed doxycycline for seven days to address potential bacterial infection. - Recommended application of mupirocin cream to the affected area three times daily for one week. - Advised monitoring for signs of infection such as increased redness, swelling, or pus, and to seek medical attention if these occur. Medications: New mupirocin 2% 1 appl topical TID 22 grams 0RF doxycycline hyclate 100 mg PO BID 14 tabs 0RF Coding Level of Care Code Est Pt Level 3 (55344) Diagnoses Wound of right shoulder, initial encounter S41.001A Encounter type: initial encounter Laterality: right
--- OUTSIDE RECORDS SUMMARY | 2025-08-31 18:19 | XMS_ITS | Clinical Summary ---
Author Organization 175 [facility] Address [address] [place] [address] Phone Care Team Providers Care Assistant Editor Name Role Phone Yoseph Syed MD Primary Care Provider [phone] Allergies No known active allergies Social History [...] this topic Insurance MEDICAID - [place] MEDICARE [facility] Care Teams Assistant Editor Relationship Specialty Start Date End Date Yoseph Syed MD [address] [place] [address] PCP - General Internal Medicine 02/22/25
== END 2025-08-31 17:27 | disposition home or self-care (01) ==
PROVIDERS: PCP Internal Medicine; Visit Provider Physician Assistant Medical
DX: S41.001A Unspecified open wound of right shoulder, initial encounter (principal)

== ENCOUNTER → 2025-08-31 15:06 | Outpatient (BNVA) | payer OTHER, SELFPAY | PROVIDERS: PCP Internal Medicine; Visit Provider Nurse Practitioner Family | DX: S41.001A Unspecified open wound of right shoulder, initial encounter (principal); Z98.890 Other specified postprocedural states | CPT/HCPCS: 99212 ==

== ENCOUNTER 2025-09-05 09:42 | Outpatient (AMB) | payer OTHER, SELFPAY ==
[2025-09-05 10:26] VITALS: BP 110/80; PULSE 69; O2SAT 98; BMI 22.1
--- NOTE | 2025-09-05 10:26 | A.OFFVIS_ITS ---
Vital Signs 09/05/25 10:26 Height 5 ft 10 in Weight 154 lb 5.177 oz BMI 22.1 BP 110/80 Blood Pressure Location Lt brachial Position Sitting Pulse 69 Pulse Source Pulse Oximeter Pulse Oximetry (%) 98 Oxygen Delivery Method Room Air Intake Visit Reasons: COPD Intake Note: pt is here for follow u and states he feels great. 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 HE UNDERWENT RIGHT SHOULDER SURGERY FROM WHICH HE HAS RECOVERED FAIRLY WELL. THERE WAS NO RESPIRATORY DISTRESS AFTER SURGERY. HE IS BEING TREATED FOR COPD WITH USE OF SYMBICORT 160-4.52 PUFFS B.I.D., WHICH HE IS USING ONLY 1 PUFF B.I.D.., AND USES IPRATROPIUM-ALBUTEROL SOLUTION IN THE NEBULIZER 3 TIMES A DAY BUT ONLY NEEDED. HE ALSO HAS ALBUTEROL HFA AND USES 1 PUFF ONLY IF NEEDED. FROM RESPIRATORY POINT OF VIEW HE IS DOING GOOD, DENIES ANY SHORTNESS OF BREATH ON EXERTION., DENIES ANY SEVERE COUGH OR WHEEZING. HE DOES WALK AROUND DURING THE DAY BUT DOES NOT HAVE ANY SPECIAL EXERCISE PROGRAM. HE IS OF A THIN BUILD AND THE WEIGHT IS STAYING STABLE. HE HAS STARTED ANNUAL LUNG SCREENING PROGRAM BUT HAS NOT HAD ANY LOW-DOSE CT SCAN YET. [facility] Medical History COPD (chronic obstructive pulmonary disease) Liver cirrhosis, alcoholic Tremor of both hands Nicotine dependence, cigarettes, uncomplicated Recurrent dislocation, right shoulder Depression, major, recurrent Difficulty sleeping Chronic GERD Lipid disorder Alcoholism LFT elevation Surgical History Hx of varicose vein ligation History of esophagogastroduodenoscopy (EGD) Hx of colonoscopy Family History Father No problems noted. Mother No problems noted. Social History Household Members: None Housing: Apartment Are you a primary critical care physician assistant to a significant other at home: No Do you presently have visiting nurse or other home services: No Alcohol intake: current Alcohol intake frequency: 3 or more drinks per day Alcohol type: beer Patient Tobacco Use Status: Current everyday Tobacco user Tobacco use type: Cigarette Cigarette Packs Per Day: 1.5 Cigarettes Per Day: 40.0 e-Cigarette/Vaping Use: Never Used service: No Current occupational status: retired Cognitive needs: No Hearing needs: No Vision needs: Yes Review of Systems Const All systems reviewed & are unremarkable except as noted in HPI and below Eyes Reports no additional complaints ENT Reports no additional complaints Card Denies chest pain at rest, Denies syncope and Denies irregular heart rhythm Resp Reports as per HPI GI Reports no additional complaints Reports no additional complaints Musc Reports arthralgias (RIGHT SHOULDER AND UPPER EXTREMITY PAIN) Skin/Breast Reports system reviewed and no additional complaints, except as documented Neuro Denies syncope and Reports other (PERIPHERAL NEUROPATHY RELATED TO ALCOHOL ABUSE) Psych Reports no additional complaints Endo Reports no additional complaints Candido/Lymph Reports no additional complaints Aller/Immun Reports no additional complaints Physical Exam Vital Signs: Last Vital Signs Pulse 69 09/05/25 10:26 BP 110/80 09/05/25 10:26 Pulse Ox 98 09/05/25 10:26 Oxygen Delivery Method Room Air 09/05/25 10:26 BMI result Body Mass Index 22.1 HE IS OF A THIN BUILD, COMFORTABLE, HAPPY GOING AND, HAS NO DISTRESS . Const General: healthy appearing, comfortable, no acute distress, alert and awake Orientation/consciousness: patient oriented x3 HEENT Head: Yes normal to inspection General nose exam: No nasal polyps present and No nasal discharge present Face and sinus: Yes sinuses nontender Mouth: oropharynx normal Throat: Yes posterior oropharynx normal Eyes General: appearance normal, both eyes and all related structures Neck Neck: Yes normal visual inspection, Yes no lymphadenopathy, Yes trachea midline and Yes no JVD Thyroid: Thyroid normal Chest Chest palpation & inspection: normal inspection of the chest, normal palpation of entire chest wall and no tenderness Resp Other: CHEST IS SYMMETRICAL. PERCUSSION NOTE HYPER-RESONANT. BREATH SOUNDS ARE SLIGHTLY DISTANT WITH PROLONGED. EXPIRATORY PHASE NO WHEEZES RHONCHI OR CREPITATIONS ARE HEARD. Cardio Palpation: normal PMI Rate: regular rate Rhythm: regular rhythm Heart sounds: no gallops and no murmurs Peripheral pulses: Peripheral pulses 2+ throughout GI Palpation (GI): Soft to palpation, Tenderness to palpation present (GI), No hepatosplenomegaly present and Palpable mass present Auscultation: normal bowel sounds Back/Spine/Pelvis Thoracic/Lumbar Spine: thoracic and lumbar spine normal to inspection Skin General skin exam: no rashes or lesions noted Neuro General: patient oriented x3 and no focal motor deficits Cranial nerves: Yes CN's II-XII intact bilaterally Extrem General: Yes normal to inspection, Yes no clubbing, cyanosis or edema and Yes no calf tenderness Psych Speech and movement: Normal speech and movement present Assessment & Plan Assessment & Plan (1) COPD (chronic obstructive pulmonary disease): Comment: PER SPIROMETRY THIS GENTLEMAN DOES HAVE CHRONIC OBSTRUCTIVE PULMONARY DISORDER. IT IS MILD, CLINICALLY NOT VERY SYMPTOMATIC AT THIS TIME EXCEPT FOR INTERMITTENT COUGH. Code(s): J44.9 - Chronic obstructive pulmonary disease, unspecified Category: Medical Qualifiers: COPD type: emphysema Emphysema type: panlobular Qualified Code(s): J43.1 - Panlobular emphysema Plan: CONTINUE THE PRESENT TREATMENT REGIMEN WHICH IS FOLLOWS. SYMBICORT 160-4.52 PUFFS B.I.D., IF SYMPTOMS ARE MINIMAL HE MAY RESORT TO ONLY 1 PUFF B.I.D.. IPRATROPIUM-ALBUTEROL SOLUTION IN THE NEBULIZER 3 TIMES A DAY. ALBUTEROL HFA 1 OR 2 PUFFS Q 6 HOURS ONLY P.R.N.. (2) Nicotine dependence, cigarettes, uncomplicated: Comment: (onset 8yo, 2ppd x 52yrs, 100pyh) THIS GENTLEMAN HAS LONGSTANDING HISTORY OF HEAVY SMOKING AND MODERATE AMOUNT OF DRINKING ALCOHOL. HE SAY IS HE HAS NOTHING ELSE TO DO. SINCE LAST VISIT, HE HAS TRY TO CUT DOWN AND NOW IS DOWN TO 1 AND HALF PACK OF CIGARETTES A DAY. Code(s): F17.210 - Nicotine dependence, cigarettes, uncomplicated Category: Medical Plan: HAD A GOOD TALK AND I TRY TO CONVINCE HIM TO CUT IT DOWN MUCH POSSIBLE. GOAL IS TO QUIT COMPLETELY HE IS ENCOURAGED TO PARTICIPATE IN ANNUAL LUNG SCREENING PROGRAM AND IS EXPECTED TO HAVE. LDCT NEXT MONTH Coding Level of Care Code Est Pt Level 3 (70697) Diagnoses Panlobular emphysema J43.1 COPD type: emphysema Emphysema type: panlobular Nicotine dependence, cigarettes, uncomplicated F17.210
== END 2025-09-05 10:51 | disposition home or self-care (01) ==
LOC: HO.HPS 09:43
PROVIDERS: PCP Internal Medicine; Visit Provider Internal Medicine
DX: J43.1 Panlobular emphysema (principal); F17.210 Nicotine dependence, cigarettes, uncomplicated
CPT/HCPCS: 99213

== ENCOUNTER → 2025-09-05 09:42 | Outpatient (BNVA) | payer OTHER, SELFPAY | PROVIDERS: PCP Internal Medicine; Visit Provider Internal Medicine | DX: J43.1 Panlobular emphysema (principal); F17.210 Nicotine dependence, cigarettes, uncomplicated | CPT/HCPCS: 99212 ==

== ENCOUNTER 2025-09-19 13:12 | Outpatient (AMB) | payer OTHER, SELFPAY ==
[2025-09-19 13:17] VITALS: BP 122/80; PULSE 76; O2SAT 96; BMI 22.2
--- NOTE | 2025-09-19 13:17 | A.OFFPC_ITS ---
Vital Signs 09/19/25 13:17 Height 5 ft 9.8 in Weight 154 lb BMI 22.2 BP 122/80 Blood Pressure Location Lt brachial Position Sitting Pulse 76 Pulse Source Pulse Oximeter Pulse Oximetry (%) 96 Intake Visit Reasons: 6 months f/up miss jul apptm Allergies bee pollen (BEE STINGS) Allergy (Severe, Verified 09/19/25 13:19) Anaphylaxis poison tara extract Allergy (Intermediate, Verified 09/19/25 13:19) Hives Tobacco use date assessed: 01/31/25 Dental Screening Dental Screen Date: 01/31/25 HPI HPI Comments History of Present Illness Details History of Present Illness The patient is a 60 year old individual presenting for a follow-up . Right Rotator Cuff Repair: - The patient underwent a right rotator cuff repair surgery on June 30, 2025, performed by Dr. Mcmanus from [facility]. - Following the surgery, the patient dev eloped a pustular post-surgical wound infection and was seen at a walk-in clinic where the patient was prescribed medication and a salve. - The wound is now healed. - A follow-up appointment with the ortho pedic surgeon is scheduled for October 25. Alcohol and Tobacco Use: - The patient reports having slowed down on drinking alcohol. - The patient continues to smoke but rep orts smoking less because of the need to go outside in the cold weather. Medical History: - Post-surgical infection of the right s houlder, resolved. - GERD, managed with omeprazole. - Vitamin D deficiency, on supplementati on. Surgical History: - Right rotator cuff repair on June 30, 2025. Medications: - Omeprazole for stomach. - Vitamin D. Social History: - Tobacco Use: The patient continues to smoke but has reduced the amount because the patient has to go outside. - Alcohol Use: The patient reports havin g slowed down on drinking. - Living Situation: The patient sleeps o n the couch as the patient's bed interferes with performing prescribed exercises. [facility] Medical History COPD (chronic obstructive pulmonary disease) Liver cirrhosis, alcoholic Tremor of both hands Nicotine dependence, cigarettes, uncomplicated Recurrent dislocation, right shoulder Depression, major, recurrent Difficulty sleeping Chronic GERD Lipid disorder Alcoholism LFT elevation Surgical History Hx of varicose vein ligation History of esophagogastroduodenoscopy (EGD) Hx of colonoscopy Family History Father No problems noted. Mother No problems noted. Social History Household Members: None Housing: Apartment Are you a primary career development facilitator to a significant other at home: No Do you presently have visiting nurse or other home services: No Alcohol intake: current Alcohol intake frequency: 3 or more drinks per day Alcohol type: beer Patient Tobacco Use Status: Current everyday Tobacco user Tobacco use type: Cigarette Cigarette Packs Per Day: 1.5 Cigarettes Per Day: 40.0 e-Cigarette/Vaping Use: Never Used service: No Current occupational status: retired Cognitive needs: No Hearing needs: No Vision needs: Yes Questionnaire PHQ-9 Over the last 2 weeks, how often have you been bothered by any of the following problems? 1. Little interest or pleasure in doing things: not at all 2. Feeling down, depressed, or hopeless: not at all 3. Trouble falling or staying asleep, or sleeping too much: not at all 4. Feeling tired or having little energy: not at all 5. Poor appetite or overeating: not at all 6. Feeling bad about yourself - or that you are a failure or have let yourself or your family down: not at all 7. Trouble concentrating on things, such as reading the newspaper or watching television: not at all 8. Moving or speaking so slowly that other people could have noticed. Or the opposite - being so fidgety or restless that you have been moving around a lot more than usual: not at all 9. Thoughts that you would be better off or of hurting yourself in some way: not at all Total score: 0 Depression Screening Interpretation: Negative Depression Screening Done: Yes [id number] - PHQ-9 Billing: Yes Source: Developed by Drs. Ba Harris, Cindy Gerardo, Darien Siddiqui and colleagues, with an educational avelino from [employer]. Thrive Questionnaire Date Thrive assessed: 01/31/25 I am a: Patient What is your living situation today?: I have a steady place to live Within the past 12 months, did the food you bought not last and you didn't have the money to get more?: Never true Within the past 12 months, did you worry whether your food would run out before you got money to buy more?: Never true Do you have trouble paying for medicines?: I choose not to answer this question Do you have trouble getting transportation to medical appointments?: No Do you have trouble paying your heating and electricity bill?: No Do you have trouble taking care of your child, family member or friend?: No Do you have trouble with day-to-day activities such as bathing, preparing meals, shopping, managing finances, etc.?: No Are you currently unemployed and looking for a job?: No Are you interested in more education?: No Please select the resources that you would like help with: None Currently or been in a relationship where the following occur: I choose not to answer THRIVE Score: 0 AUDIT C Alcohol Use Questionnaire (AUDIT-C) 1. How often do you have a drink containing alcohol?: 4 or more times a week 2. How many drinks containing alcohol do you have on a typical day when you are drinking?: 5 or 6 3. How often do you have six or more drinks on one occasion?: Weekly Total Score: 9 MARTIN-7 AMB Questionnaire MARTIN-7 Date MARTIN - 7 assessed: 01/31/25 Feeling nervous, anxious, or on edge: 0 = Not at all Not being able to stop or control worryin = Not at all Worrying too much about different things: 0 = Not at all Trouble relaxin = Not at all Being so restless that it is hard to sit still: 0 = Not at all Becoming easily annoyed or irritable: 0 = Not at all Feeling afraid as if something awful might happen: 0 = Not at all Total MARTIN-7 score (0-4 normal; 5-9 mild; 10-14 moderate; 15-21 severe): 0 Source: Developed by Drs. Ba Harris, Cindy Gerardo, Darien Siddiqui and colleagues, with an educational avelino from [employer]. Review of Systems Narrative Review of Systems - General: No fever no chills - Neurological: No headaches no dizziness - Ear nose throat: No sore throat no hearing difficulty no ear pain - Cardiovascular: No syncope, no chest pain, no palpitations - Gastrointestinal: No nausea vomiting or diarrhea - Endocrine: No polyuria polydipsia no heat intolerance - Genitourinary: No dysuria , no blood in urine Physical exam (Primary Care) Vital Signs: Last Vital Signs Pulse 76 09/19/25 13:17 BP 122/80 09/19/25 13:17 Pulse Ox 96 09/19/25 13:17 BMI result Body Mass Index 22.2 Tobacco/Smoking Status: Tobacco use Status Tobacco use date assessed 01/31/25 09/19/25 13:18 Patient Tobacco Use Status Current everyday Tobacco 09/19/25 13:18 Tobacco use type Cigarette 09/19/25 13:18 e-Cigarette/Vaping Use Never Used 09/19/25 13:18 PHQ-9: PHQ-9 Score PHQ-9: Total score 0 09/19/25 13:18 Depression Screening Interpretation: Negative Thrive Assessment: Date of Thrive Assessment Date Thrive assessed 01/31/25 09/19/25 13:18 Currently or been in a relationship where the following occur: I choose not to answer Narrative Physical Exam General: No acute distress HEENT: No acute findings Neck: Supple Respiratory system: Able to talk in full sentences, no audible wheeze Cardiovascular: S1-S2 regular in rate and rhythm Gastrointestinal: No pain Extremities: Right shoulder wound healing well, no inflammation or infection CHEMICAL PLANT WORKER: Alert awake oriented x3 motor intact Skin: Normal turgor Coding Level of Care Code Est Pt Level 4 (18480) Diagnoses Panlobular emphysema J43.1 COPD type: emphysema Emphysema type: panlobular Nicotine dependence, cigarettes, uncomplicated F17.210 Rotator cuff insufficiency of right shoulder M25.311 Chronic GERD K21.9 Alcoholic peripheral neuropathy G62.1 Tobacco dependence F17.200 Additional Codes PHQ-9 - 60421 - PHQ-9 Billing: Yes ([id number]) Assessment & Plan Assessment & Plan (1) COPD (chronic obstructive pulmonary disease): Comment: PER SPIROMETRY THIS GENTLEMAN DOES HAVE CHRONIC OBSTRUCTIVE PULMONARY DISORDER. IT IS MILD, CLINICALLY NOT VERY SYMPTOMATIC AT THIS TIME EXCEPT FOR INTERMITTENT COUGH. Code(s): J44.9 - Chronic obstructive pulmonary disease, unspecified Category: Medical Qualifiers: COPD type: emphysema Emphysema type: panlobular Qualified Code(s): J43.1 - Panlobular emphysema Plan: CONTINUE THE PRESENT TREATMENT REGIMEN WHICH IS FOLLOWS. SYMBICORT 160-4.52 PUFFS B.I.D., IF SYMPTOMS ARE MINIMAL HE MAY RESORT TO ONLY 1 PUFF B.I.D.. IPRATROPIUM-ALBUTEROL SOLUTION IN THE NEBULIZER 3 TIMES A DAY. ALBUTEROL HFA 1 OR 2 PUFFS Q 6 HOURS ONLY P.R.N.. (2) Nicotine dependence, cigarettes, uncomplicated: Comment: (onset 8yo, 2ppd x 52yrs, 100pyh) THIS GENTLEMAN HAS LONGSTANDING HISTORY OF HEAVY SMOKING AND MODERATE AMOUNT OF DRINKING ALCOHOL. HE SAY IS HE HAS NOTHING ELSE TO DO. SINCE LAST VISIT, HE HAS TRY TO CUT DOWN AND NOW IS DOWN TO 1 AND HALF PACK OF CIGARETTES A DAY. Code(s): F17.210 - Nicotine dependence, cigarettes, uncomplicated Category: Medical Plan: HAD A GOOD TALK AND I TRY TO CONVINCE HIM TO CUT IT DOWN MUCH POSSIBLE. GOAL IS TO QUIT COMPLETELY HE IS ENCOURAGED TO PARTICIPATE IN ANNUAL LUNG SCREENING PROGRAM AND IS EXPECTED TO HAVE. LDCT NEXT MONTH (3) Rotator cuff insufficiency of right shoulder: Code(s): M25.311 - Other instability, right shoulder Category: Medical (4) Chronic GERD: Code(s): K21.9 - Gastro-esophageal reflux disease without esophagitis Category: Medical (5) Alcoholic peripheral neuropathy: Code(s): G62.1 - Alcoholic polyneuropathy Category: Medical (6) Tobacco dependence: Comment: HAS LIFELONG HISTORY OF SMOKING , 2 PACKS A DAY SINCE AGE 7 OR 8. HE IS NOT IN SMOKING CESSATION MOOD RIGHT NOW. Code(s): F17.200 - Nicotine dependence, unspecified, uncomplicated Category: Medical Plan Problem List - Status post right rotator cuff repair - Chronic right shoulder pain - History of post-surgical wound infection - Alcohol use - Tobacco use - Preventative care: Vaccinations up to date Plan - The patient will continue with physical therapy for the right shoulder. - The patient is to continue with home exercises for the shoulder. - Advised to continue to cut down on drinking and smoking. - Will send refills for omeprazole and Vitamin D. - The patient has an upcoming appointment with the orthopedic surgeon on October 25. - Labs were ordered, and the patient is to fast for 10 hours before the draw tomorrow morning. - Follow-up is scheduled in six months for an annual physical exam on February 06. - The patient reports being up-to-date with flu, COVID, and pneumonia vaccines.
--- OUTSIDE RECORDS SUMMARY | 2025-09-19 15:09 | XMS_ITS | Clinical Summary ---
Author Organization [address] [facility] Address [address] [place] [address] Phone Care Team Providers Care Psychotherapist Counselor Name Role Phone Yoseph Syed MD Primary Care Provider [phone] Allergies No known active allergies Social History [...] 02/22/2025 Social Influencers of Health Screening 02/22/2025 COVID-19 Vaccine ( season) 2025 08/10/2024, 08/28/2023, 12/18/2022, Additional history exists Influenza Vaccine (#1) 2025 , 08/28/2023, 09/09/2022, Additional history exists DTaP,Tdap,and Td Vaccines (3 - Td or Tdap) 07/16/2028 07/16/2018, 05/04/2008 Hepatitis B Vaccines Completed 09/18/2009, 03/21/2009, 02/20/2009 RSV Immunization Adult Patients Completed 08/28/2023 HIB Vaccines Aged Out No longer eligi [...] this topic Insurance MEDICAID - [place] MEDICARE [facility] Care Teams Psychotherapist Counselor Relationship Specialty Start Date End Date Yoseph Syed MD [address] [place] [address] PCP - General Internal Medicine 02/22/25
== END 2025-09-19 13:53 | disposition home or self-care (01) ==
LOC: HO.HMCC 13:13
PROVIDERS: Visit Provider Internal Medicine
DX: J43.1 Panlobular emphysema (principal); F17.210 Nicotine dependence, cigarettes, uncomplicated; M25.311 Other instability, right shoulder; K21.9 Gastro-esophageal reflux disease without esophagitis; G62.1 Alcoholic polyneuropathy; F17.200 Nicotine dependence, unspecified, uncomplicated

== ENCOUNTER → 2025-09-19 13:12 | Outpatient (BNVA) | payer OTHER, SELFPAY | PROVIDERS: Visit Provider Internal Medicine | DX: J43.1 Panlobular emphysema (principal); F17.210 Nicotine dependence, cigarettes, uncomplicated; M25.311 Other instability, right shoulder; K21.9 Gastro-esophageal reflux disease without esophagitis; G62.1 Alcoholic polyneuropathy; Z98.890 Other specified postprocedural states; Z13.31 Encounter for screening for depression | CPT/HCPCS: 96127; 99212 ==